=== PATIENT | female | born 1945 | race African-American/Black ===

== ENCOUNTER 2017-02-07 14:18 | Inpatient (IN) | payer MEDICARE, BC ==
[~2017-02-07] VITALS: Ht 167.6 cm; Wt 46.3 kg
[~2017-02-07 14:18] MED LIST: AMLO10TA80 PO; ASPI-1035 PO; FEBU40TA PO; FOLI1TAB87 PO; INSNOV SUBCUT; LIP40 PO; MEMA10TA11 PO; QUIN20TA30 PO; SEVE800T8 PO
[2017-02-07] MEDS ORDERED: MORPHINE SULFATE 4 MG/ML CPJ (NOT FOR IM USE) IV STA (14:57)
[2017-02-07] MEDS ORDERED: ONDANSETRON HCL 4MG/2ML VIAL IV STA (14:57)
[2017-02-07 15:22] LABS: BASOPHILS % 0.5 % (0.0-2.0); EOSINOPHILS % 1.9 % (0.0-5.0); HEMATOCRIT. 32.4 % (36.0-48.0); HEMOGLOBIN. 10.3 g/dL (12.0-16.0); LYMPHOCYTES % 8.6 % (20.0-50.0); MEAN CORPUSCULAR HGB CONC 31.9 g/dL (31.0-37.0); MEAN CORPUSCULAR VOLUME 87.7 fL (81.0-99.0); MEAN PLATELET VOLUME 10.8 fl (7.4-10.4); MONOCYTES % 8.1 % (2.0-8.0); NEUTROPHILS % 80.9 % (40.0-76.0); PLATELET 137 x1000/uL (130-400); RED BLOOD CELL COUNT 3.69 mill/uL (4.2-5.4); RED CELL DISTRIBUTION WIDTH 16.2 % (11.6-14.6); WHITE BLOOD COUNT 8.9 x1000/uL (4.5-11.0)
[2017-02-07 15:22] LABS: CLARITY URINE TURBID (CLEAR); COLOR URINE YELLOW (YELLOW); GLUCOSE URINE NEGATIVE (NEGATIVE); KETONES URINE NEGATIVE (NEGATIVE); LEUKOCYTE ESTERASE URINE TRACE (NEGATIVE); NITRITE URINE NEGATIVE (NEGATIVE); OCCULT BLOOD URINE NEGATIVE (NEGATIVE); PH URINE 6.5 (4.5-8.0); PROTEIN URINE 1+ (NEGATIVE); SPECIFIC GRAVITY URINE 1.015 (1.005-1.030); UROBILINOGEN URINE 0.2 E.U./dL (0.2-1.0)
[2017-02-07 15:29] LABS: PARTIAL THROMBOPLASTIN TIME 26.7 sec (24.0-34.0); PROTHROMBIN TIME 10.9 sec
[2017-02-07 15:39] LABS: ALANINE AMINOTRANSFERASE 23 IU/L (13-61); ANION GAP 21; CALCIUM 7.9 mg/dL (8.5-10.1); CARBON DIOXIDE 25 mEq/L (21-32); CHLORIDE 100 mEq/L (98-107); INDEX HEMOLYSI 1 (1-3); INDEX ICTERIC 1 (1-4); INDEX LIPEMIC 1 (1-3); LIPASE 204 IU/L (73-393); MAGNESIUM 2.3 mg/dL (1.8-2.4); PHOSPHORUS 7.5 mg/dL (2.5-4.9); TROPONIN I 0.03 ng/mL (0.00-0.04); eGFR 5 mL/min (>60)
[2017-02-07 15:41] LABS: UREA NITROGEN BLOOD 81 mg/dL (7-21)
[2017-02-07 15:56] LABS: BACTERIA URINE 4+; RBC URINE NONE SEEN /hpf (0-2); SQUAMOUS EPITHELIAL CELL URINE 3+ /lpf (RARE/1+)
[2017-02-07] MEDS ORDERED: PIPERACILLIN/TAZ 3.375G PREMIX 50 ML IV ONE (16:30)
[2017-02-07 21:40] VITALS: BP 137/68
[2017-02-07] MEDS ORDERED: SODIUM CHLORIDE 0.9% 1,000 ML IV SCH (22:06)
[2017-02-07] MEDS ORDERED: ACETAMINOPHEN 325MG TABLET PO PRN (22:15)
[2017-02-07] MEDS ORDERED: DIPHENHYDRAMINE 50MG/ML VIAL IV PRN (22:15)
[2017-02-07] MEDS ORDERED: HYDROMORPHONE HCL/PF 2MG/ML CPJ IV PRN (22:15)
[2017-02-07] MEDS ORDERED: CLONIDINE 0.1MG TABLET PO PRN (22:15)
[2017-02-08] VITALS: BP 138/73
[2017-02-08 04:00] VITALS: BP 150/74
[2017-02-08] MEDS: ONDANSETRON HCL 4MG/2ML VIAL IV PRN ×3 (04:29→18:34)
[2017-02-08] MEDS: LORAZEPAM 2MG/ML CPJ IV PRN ×2 (04:35→23:43)
[2017-02-08 06:00] LABS: BASOPHILS % 0.5 % (0.0-2.0); EOSINOPHILS % 1.3 % (0.0-5.0); HEMATOCRIT. 31.4 % (36.0-48.0); HEMOGLOBIN. 10.1 g/dL (12.0-16.0); LYMPHOCYTES % 8.9 % (20.0-50.0); MEAN CORPUSCULAR HGB CONC 32.2 g/dL (31.0-37.0); MEAN CORPUSCULAR VOLUME 86.9 fL (81.0-99.0); MEAN PLATELET VOLUME 11.3 fl (7.4-10.4); MONOCYTES % 7.4 % (2.0-8.0); NEUTROPHILS % 81.9 % (40.0-76.0); PLATELET 143 x1000/uL (130-400); RED BLOOD CELL COUNT 3.62 mill/uL (4.2-5.4); RED CELL DISTRIBUTION WIDTH 15.6 % (11.6-14.6); WHITE BLOOD COUNT 9.1 x1000/uL (4.5-11.0)
[2017-02-08] MEDS ORDERED: DEXTROSE 50% WATER 50ML SYRINGE IV PRN (06:30)
[2017-02-08] MEDS: BLOOD SUGAR DIAGNOSTIC STRIP TEST SCH ×4 (07:11→20:58)
[2017-02-08 07:18] LABS: CALCIUM 8.1 mg/dL (8.5-10.1); MAGNESIUM 2.4 mg/dL (1.8-2.4); PHOSPHORUS 7.8 mg/dL (2.5-4.9)
[2017-02-08] MEDS: INSULIN LISPRO 100 UNITS/ML SUBCUT SCH ×4 (07:38→20:57)
[2017-02-08 09:48] VITALS: BP 107/60
[2017-02-08] MEDS: SEVELAMER CARBONATE 800 MG TABLET PO SCH ×2 (13:43→17:55)
[2017-02-08 16:00] VITALS: BP 164/81
[2017-02-08] MEDS ORDERED: CHOL500010 PO (16:47)
[2017-02-08] MEDS ORDERED: CITA10TA9 PO (16:47)
[2017-02-08 20:00] VITALS: BP 130/80
[2017-02-08] MEDS ORDERED: EPOETIN ALFA 4000UNITS/ML VIAL SUBCUT SCH (21:00)
[2017-02-09] VITALS: BP 143/94
[2017-02-09 04:00] VITALS: BP 120/75
[2017-02-09 06:17] LABS: CALCIUM 8.5 mg/dL (8.5-10.1)
[2017-02-09] MEDS: BLOOD SUGAR DIAGNOSTIC STRIP TEST SCH ×3 (06:27→17:14)
[2017-02-09] MEDS: INSULIN LISPRO 100 UNITS/ML SUBCUT SCH ×3 (06:51→17:15)
[2017-02-09 08:00] VITALS: BP 112/69
[2017-02-09] MEDS ORDERED: FOLIC ACID/VITAMIN B COMP W-C TABLET PO SCH (09:00)
[2017-02-09] MEDS: SEVELAMER CARBONATE 800 MG TABLET PO SCH ×3 (09:06→17:14)
[2017-02-09 12:00] VITALS: BP 109/62
[2017-02-09 12:30] VITALS: BP 110/62
[2017-02-09] MEDS: ONDANSETRON HCL 4MG/2ML VIAL IV PRN (16:16)
[2017-02-09 16:30] VITALS: BP 138/78
== END 2017-02-09 19:56 | disposition home or self-care (01) | DRG 865 ==
LOC: ER 16:02 → 6WST 19:34
PROVIDERS: ADMIT Internal Medicine Nephrology; ATTEND Internal Medicine Nephrology
PROC: 5A1D00Z (ICD-10-PCS; principal; 2017-02-08)
DX: B34.9 Viral infection, unspecified (principal); N18.6 End stage renal disease; I12.0 Hypertensive chronic kidney disease with stage 5 chronic kidney disease or end stage renal disease; N17.9 Acute kidney failure, unspecified; N25.81 Secondary hyperparathyroidism of renal origin; K80.20 Calculus of gallbladder without cholecystitis without obstruction; M10.9 Gout, unspecified; F03.90 Unspecified dementia, unspecified severity, without behavioral disturbance, psychotic disturbance, mood disturbance, and anxiety; D25.9 Leiomyoma of uterus, unspecified; D64.9 Anemia, unspecified; E11.22 Type 2 diabetes mellitus with diabetic chronic kidney disease; E78.00 Pure hypercholesterolemia, unspecified; E11.51 Type 2 diabetes mellitus with diabetic peripheral angiopathy without gangrene; E78.5 Hyperlipidemia, unspecified; E83.39 Other disorders of phosphorus metabolism; I70.0 Atherosclerosis of aorta; K57.30 Diverticulosis of large intestine without perforation or abscess without bleeding; M06.4 Inflammatory polyarthropathy; Z89.512 Acquired absence of left leg below knee; Z91.19 Patient's noncompliance with other medical treatment and regimen; Z99.2 Dependence on renal dialysis; Z98.890 Other specified postprocedural states; Z79.4 Long term (current) use of insulin
CPT/HCPCS: 36415; 71010; 74176; 76705; 80048; 80053; 81001; 82962; 83036; 83605; 83690; 83735; 84100; 84484; 85025; 85610; 85730; 87040; 87077; 87086; 93005; 96365; 96375; 99285; J0885; J1170; J1815; J2060; J2270; J2405; J2543; J7030

== ENCOUNTER 2017-03-21 18:30 | Inpatient (IN) | payer MEDICARE, BC ==
[~2017-03-21] VITALS: Ht 160 cm; Wt 49.9 kg
[~2017-03-21 18:30] MED LIST changes: +CHOL500010 PO; +CITA10TA9 PO; +CLOP75TA33 PO; -MEMA10TA11 PO; +MEMA1CAP MT; +NAPR-681 PO
[2017-03-21 20:00] VITALS: BP 133/75
[2017-03-21] MEDS ORDERED: DEXTROSE 50% WATER 50ML SYRINGE IV PRN (22:15)
[2017-03-21] MEDS ORDERED: CLONIDINE 0.1MG TABLET PO PRN (22:30)
[2017-03-21] MEDS ORDERED: GUAIFENESIN 200MG/10ML SUGAR FREE UDC PO PRN (22:30)
[2017-03-21] MEDS ORDERED: DOCUSATE SODIUM 250MG CAPSULE PO PRN (22:30)
[2017-03-21] MEDS ORDERED: VANCOMYCIN 500 MG PREMIX 100 ML IV SCH (23:00)
[2017-03-21] MEDS: AMIODARONE HCL 200 MG TABLET PO SCH (23:08)
[2017-03-21] MEDS: TRAMADOL 50MG TABLET PO PRN (23:10)
[2017-03-21] MEDS: ATORVASTATIN CALCIUM 40MG TABLET PO SCH (23:10)
[2017-03-22] MEDS: DILTIAZEM HCL 60MG TABLET PO SCH ×3 (02:20→13:16)
[2017-03-22] MEDS: BLOOD SUGAR DIAGNOSTIC STRIP TEST SCH ×4 (05:42→20:36)
[2017-03-22 08:00] VITALS: BP 125/84
[2017-03-22] MEDS ORDERED: ASPIRIN 81MG TABLET PO SCH (09:00)
[2017-03-22] MEDS ORDERED: CLOPIDOGREL 75MG TABLET PO SCH (09:00)
[2017-03-22] MEDS: CHOLECALCIFEROL (D3) 1000 UNIT TABLET PO SCH (09:05)
[2017-03-22] MEDS: FOLIC ACID/VITAMIN B COMP W-C TABLET PO SCH (09:05)
[2017-03-22] MEDS: SEVELAMER CARBONATE 800 MG TABLET PO SCH ×3 (09:06→17:35)
[2017-03-22] MEDS: CITALOPRAM HYDROBROMIDE 10MG TABLET PO SCH (09:06)
[2017-03-22] MEDS: AMIODARONE HCL 200 MG TABLET PO SCH ×2 (09:06→17:35)
[2017-03-22] MEDS: IRON SUCROSE COMPLEX 100 MG/5 ML ML IV SCH (09:24)
[2017-03-22 13:15] VITALS: BP 136/61
[2017-03-22] MEDS: INSULIN LISPRO 100 UNITS/ML SUBCUT SCH ×4 (13:16→20:37)
[2017-03-22 16:00] VITALS: BP 149/82
[2017-03-22] MEDS: TRAMADOL 50MG TABLET PO PRN (17:36)
[2017-03-22 20:00] VITALS: BP 106/61
[2017-03-22] MEDS: FAMOTIDINE 20MG TABLET PO SCH (20:40)
[2017-03-22] MEDS: ATORVASTATIN CALCIUM 40MG TABLET PO SCH (20:40)
[2017-03-23] MEDS: BLOOD SUGAR DIAGNOSTIC STRIP TEST SCH ×4 (06:09→21:19)
[2017-03-23] MEDS: DILTIAZEM HCL 60MG TABLET PO SCH ×4 (06:10→21:19)
[2017-03-23] MEDS: ONDANSETRON HCL 4MG/2ML VIAL IV PRN ×3 (06:17→12:54)
[2017-03-23 06:45] LABS: HEMATOCRIT. 33.4 % (36.0-48.0); MEAN CORPUSCULAR HEMOGLOBIN 27.8 pg (28.0-32.0); MEAN CORPUSCULAR HGB CONC 33.1 g/dL (31.0-37.0); MEAN CORPUSCULAR VOLUME 83.9 fL (81.0-99.0); MEAN PLATELET VOLUME 9.4 fl (7.4-10.4); PLATELET 188 x1000/uL (130-400); RED BLOOD CELL COUNT 3.98 mill/uL (4.2-5.4); RED CELL DISTRIBUTION WIDTH 15.9 % (11.6-14.6); WHITE BLOOD COUNT 18.1 x1000/uL (4.5-11.0)
[2017-03-23 06:59] LABS: DIFFERENTIAL COMMENT 1
[2017-03-23 07:12] LABS: CALCIUM 8.3 mg/dL (8.5-10.1); PHOSPHORUS 4.5 mg/dL (2.5-4.9)
[2017-03-23] MEDS: INSULIN LISPRO 100 UNITS/ML SUBCUT SCH ×4 (07:27→21:00)
[2017-03-23 08:00] VITALS: BP 111/62
[2017-03-23] MEDS: FOLIC ACID/VITAMIN B COMP W-C TABLET PO SCH (08:06)
[2017-03-23] MEDS: IRON SUCROSE COMPLEX 100 MG/5 ML ML IV SCH (08:06)
[2017-03-23] MEDS: CHOLECALCIFEROL (D3) 1000 UNIT TABLET PO SCH (08:06)
[2017-03-23] MEDS: SEVELAMER CARBONATE 800 MG TABLET PO SCH ×3 (08:06→16:41)
[2017-03-23] MEDS: CITALOPRAM HYDROBROMIDE 10MG TABLET PO SCH (08:07)
[2017-03-23] MEDS: AMIODARONE HCL 200 MG TABLET PO SCH ×2 (08:07→16:41)
[2017-03-23] MEDS: TRAMADOL 50MG TABLET PO PRN ×2 (10:58→17:42)
[2017-03-23 13:32] LABS: BG BASE EXCESS -0.8 mmol/L (-2.0-2.0); BG CARBOXYHEMOGLOBIN 0.9 % (0.5-1.5); BG DEOXYHEMOGLOBIN 7.3 % (0.0-5.0); BG FRACTION INSPIRED OXYGEN 21; BG HCO3 ACT 22.6 mmol/L (22.0-26.0); BG METHEMOGLOBIN 0.1 % (0.0-1.5); BG OXYGEN SATURATION 92.6 % (92.0-98.5); BG OXYHEMOGLOBIN 91.7 % (94.0-97.0); BG PCO2 33.5 mmHg (35.0-45.0); BG PH 7.447 (7.350-7.450); BG SAMPLE SITE RIGHT RADIAL; BG TOTAL HEMOGLOBIN 12.1 g/dL (12.0-18.0); BG VENT MODE ROOM AIR
[2017-03-23 14:44] LABS: ANISOCYTOSIS 1+; PLATELET ESTIMATE NORMAL
[2017-03-23 20:00] VITALS: BP 147/82
[2017-03-23] MEDS ORDERED: IPRATROPIUM BROMIDE (0.02%) 0.5MG/2.5ML NEB HHN PRN (21:00)
[2017-03-23] MEDS: FAMOTIDINE 20MG TABLET PO SCH (21:18)
[2017-03-23] MEDS: ATORVASTATIN CALCIUM 40MG TABLET PO SCH (21:18)
[2017-03-23] MEDS ORDERED: DOCUSATE SODIUM 100MG CAPSULE PO PRN (21:45)
[2017-03-24 06:45] LABS: HEMATOCRIT. 34.3 % (36.0-48.0); HEMOGLOBIN. 11.2 g/dL (12.0-16.0); MEAN CORPUSCULAR HEMOGLOBIN 27.6 pg (28.0-32.0); MEAN CORPUSCULAR HGB CONC 32.7 g/dL (31.0-37.0); MEAN CORPUSCULAR VOLUME 84.4 fL (81.0-99.0); MEAN PLATELET VOLUME 9.5 fl (7.4-10.4); PLATELET 206 x1000/uL (130-400); RED BLOOD CELL COUNT 4.06 mill/uL (4.2-5.4); WHITE BLOOD COUNT 15.5 x1000/uL (4.5-11.0)
[2017-03-24] MEDS: DILTIAZEM HCL 60MG TABLET PO SCH ×3 (06:46→22:26)
[2017-03-24] MEDS: INSULIN LISPRO 100 UNITS/ML SUBCUT SCH ×4 (06:47→21:00)
[2017-03-24] MEDS: BLOOD SUGAR DIAGNOSTIC STRIP TEST SCH ×4 (06:47→21:00)
[2017-03-24 07:20] LABS: CALCIUM 8.5 mg/dL (8.5-10.1)
[2017-03-24 08:00] VITALS: BP 138/68
[2017-03-24] MEDS: CHOLECALCIFEROL (D3) 1000 UNIT TABLET PO SCH (08:21)
[2017-03-24] MEDS: SEVELAMER CARBONATE 800 MG TABLET PO SCH ×3 (08:21→22:25)
[2017-03-24] MEDS: FOLIC ACID/VITAMIN B COMP W-C TABLET PO SCH (08:21)
[2017-03-24] MEDS: TRAMADOL 50MG TABLET PO PRN (08:22)
[2017-03-24] MEDS: CITALOPRAM HYDROBROMIDE 10MG TABLET PO SCH (08:22)
[2017-03-24] MEDS: AMIODARONE HCL 200 MG TABLET PO SCH ×2 (08:23→22:25)
[2017-03-24] MEDS: ONDANSETRON HCL 4MG/2ML VIAL IV PRN ×3 (08:23→21:20)
[2017-03-24 08:24] LABS: DIFFERENTIAL COMMENT 1
[2017-03-24 16:51] LABS: PLATELET ESTIMATE NORMAL
[2017-03-24] MEDS ORDERED: VANCOMYCIN 500 MG PREMIX 100 ML IV SCH (17:00)
[2017-03-24 20:00] VITALS: BP 133/46
[2017-03-24] MEDS: FAMOTIDINE 20MG TABLET PO SCH (22:25)
[2017-03-24] MEDS: ATORVASTATIN CALCIUM 40MG TABLET PO SCH (22:25)
[2017-03-25] MEDS: ACETAMINOPHEN 325MG TABLET PO PRN (00:37)
[2017-03-25] MEDS: DILTIAZEM HCL 60MG TABLET PO SCH ×3 (06:00→21:32)
[2017-03-25] MEDS: BLOOD SUGAR DIAGNOSTIC STRIP TEST SCH ×4 (06:00→20:48)
[2017-03-25] MEDS: INSULIN LISPRO 100 UNITS/ML SUBCUT SCH ×4 (06:00→21:00)
[2017-03-25 07:51] VITALS: BP 135/65
[2017-03-25] MEDS: FOLIC ACID/VITAMIN B COMP W-C TABLET PO SCH (07:52)
[2017-03-25] MEDS: AMIODARONE HCL 200 MG TABLET PO SCH ×2 (07:52→16:54)
[2017-03-25] MEDS: CITALOPRAM HYDROBROMIDE 10MG TABLET PO SCH (07:52)
[2017-03-25] MEDS: CHOLECALCIFEROL (D3) 1000 UNIT TABLET PO SCH (07:52)
[2017-03-25] MEDS: SEVELAMER CARBONATE 800 MG TABLET PO SCH ×3 (07:52→16:54)
[2017-03-25] MEDS: TRAMADOL 50MG TABLET PO PRN ×2 (07:53→13:53)
[2017-03-25] MEDS: ONDANSETRON HCL 4MG/2ML VIAL IV PRN (07:53)
[2017-03-25 08:00] VITALS: BP 137/65
[2017-03-25 20:00] VITALS: BP 142/72
[2017-03-25] MEDS: ATORVASTATIN CALCIUM 40MG TABLET PO SCH (21:32)
[2017-03-25] MEDS: FAMOTIDINE 20MG TABLET PO SCH (21:32)
[2017-03-26 05:00] VITALS: BP 128/69
[2017-03-26] MEDS: TRAMADOL 50MG TABLET PO PRN ×3 (05:00→18:04)
[2017-03-26] MEDS: BLOOD SUGAR DIAGNOSTIC STRIP TEST SCH ×4 (06:19→21:38)
[2017-03-26 06:45] LABS: HEMATOCRIT. 35.3 % (36.0-48.0); HEMOGLOBIN. 11.4 g/dL (12.0-16.0); MEAN CORPUSCULAR HEMOGLOBIN 27.2 pg (28.0-32.0); MEAN CORPUSCULAR HGB CONC 32.2 g/dL (31.0-37.0); MEAN CORPUSCULAR VOLUME 84.3 fL (81.0-99.0); MEAN PLATELET VOLUME 9.3 fl (7.4-10.4); PLATELET 255 x1000/uL (130-400); RED BLOOD CELL COUNT 4.19 mill/uL (4.2-5.4); RED CELL DISTRIBUTION WIDTH 15.7 % (11.6-14.6); WHITE BLOOD COUNT 13.7 x1000/uL (4.5-11.0)
[2017-03-26] MEDS: DILTIAZEM HCL 60MG TABLET PO SCH ×3 (06:45→21:44)
[2017-03-26 06:48] LABS: DIFFERENTIAL COMMENT 1
[2017-03-26] MEDS: INSULIN LISPRO 100 UNITS/ML SUBCUT SCH ×4 (06:48→21:00)
[2017-03-26 07:05] LABS: CALCIUM 8.7 mg/dL (8.5-10.1)
[2017-03-26 08:00] VITALS: BP 147/66
[2017-03-26] MEDS: AMIODARONE HCL 200 MG TABLET PO SCH ×2 (08:00→16:02)
[2017-03-26] MEDS: ONDANSETRON HCL 4MG/2ML VIAL IV PRN (08:00)
[2017-03-26] MEDS: FOLIC ACID/VITAMIN B COMP W-C TABLET PO SCH (08:00)
[2017-03-26] MEDS: CITALOPRAM HYDROBROMIDE 10MG TABLET PO SCH (08:00)
[2017-03-26] MEDS: ACETAMINOPHEN 325MG TABLET PO PRN ×2 (08:00→16:03)
[2017-03-26] MEDS: CHOLECALCIFEROL (D3) 1000 UNIT TABLET PO SCH (08:00)
[2017-03-26] MEDS: SEVELAMER CARBONATE 800 MG TABLET PO SCH ×3 (08:04→16:02)
[2017-03-26 09:11] LABS: PLATELET ESTIMATE NORMAL
[2017-03-26 20:19] VITALS: BP 160/65
[2017-03-26] MEDS: FAMOTIDINE 20MG TABLET PO SCH (20:40)
[2017-03-26] MEDS: ATORVASTATIN CALCIUM 40MG TABLET PO SCH (20:40)
[2017-03-26 23:00] VITALS: BP 132/71
[2017-03-27] MEDS: DILTIAZEM HCL 60MG TABLET PO SCH ×3 (05:44→22:04)
[2017-03-27 06:21] LABS: HEMATOCRIT. 33.2 % (36.0-48.0); MEAN CORPUSCULAR HGB CONC 33.2 g/dL (31.0-37.0); MEAN CORPUSCULAR VOLUME 84.2 fL (81.0-99.0); MEAN PLATELET VOLUME 9.4 fl (7.4-10.4); PLATELET 245 x1000/uL (130-400); RED BLOOD CELL COUNT 3.95 mill/uL (4.2-5.4); RED CELL DISTRIBUTION WIDTH 15.5 % (11.6-14.6); WHITE BLOOD COUNT 10.1 x1000/uL (4.5-11.0)
[2017-03-27] MEDS: BLOOD SUGAR DIAGNOSTIC STRIP TEST SCH ×4 (06:26→21:00)
[2017-03-27 06:47] LABS: DIFFERENTIAL COMMENT 1
[2017-03-27 07:08] LABS: CALCIUM 8.4 mg/dL (8.5-10.1)
[2017-03-27] MEDS: INSULIN LISPRO 100 UNITS/ML SUBCUT SCH ×4 (07:15→21:00)
[2017-03-27] MEDS: SEVELAMER CARBONATE 800 MG TABLET PO SCH ×3 (08:34→17:01)
[2017-03-27] MEDS: FOLIC ACID/VITAMIN B COMP W-C TABLET PO SCH (08:34)
[2017-03-27] MEDS: CITALOPRAM HYDROBROMIDE 10MG TABLET PO SCH (08:35)
[2017-03-27] MEDS: AMIODARONE HCL 200 MG TABLET PO SCH ×2 (08:35→17:01)
[2017-03-27] MEDS: CHOLECALCIFEROL (D3) 1000 UNIT TABLET PO SCH (08:35)
[2017-03-27] MEDS: TRAMADOL 50MG TABLET PO PRN (08:36)
[2017-03-27 11:58] LABS: PLATELET ESTIMATE NORMAL
[2017-03-27 20:00] VITALS: BP 128/70
[2017-03-27] MEDS: ATORVASTATIN CALCIUM 40MG TABLET PO SCH (22:03)
[2017-03-27] MEDS: FAMOTIDINE 20MG TABLET PO SCH (22:03)
[2017-03-28] MEDS: DILTIAZEM HCL 60MG TABLET PO SCH ×3 (06:00→22:13)
[2017-03-28] MEDS: BLOOD SUGAR DIAGNOSTIC STRIP TEST SCH ×4 (06:30→21:00)
[2017-03-28] MEDS: INSULIN LISPRO 100 UNITS/ML SUBCUT SCH ×4 (07:43→21:00)
[2017-03-28 08:00] VITALS: BP 132/66
[2017-03-28] MEDS: CHOLECALCIFEROL (D3) 1000 UNIT TABLET PO SCH (08:24)
[2017-03-28] MEDS: CITALOPRAM HYDROBROMIDE 10MG TABLET PO SCH (08:24)
[2017-03-28] MEDS: FOLIC ACID/VITAMIN B COMP W-C TABLET PO SCH (08:24)
[2017-03-28] MEDS: SEVELAMER CARBONATE 800 MG TABLET PO SCH ×3 (08:24→16:54)
[2017-03-28] MEDS: AMIODARONE HCL 200 MG TABLET PO SCH ×2 (08:25→16:55)
[2017-03-28] MEDS: TRAMADOL 50MG TABLET PO PRN (09:34)
[2017-03-28 14:49] VITALS: BP 187/95
[2017-03-28 16:10] VITALS: BP 151/61
[2017-03-28 20:00] VITALS: BP 147/69
[2017-03-28] MEDS: FAMOTIDINE 20MG TABLET PO SCH (22:12)
[2017-03-28] MEDS: ATORVASTATIN CALCIUM 40MG TABLET PO SCH (22:16)
[2017-03-29] MEDS: TRAMADOL 50MG TABLET PO PRN ×2 (02:03→08:31)
[2017-03-29] MEDS: BLOOD SUGAR DIAGNOSTIC STRIP TEST SCH ×4 (05:46→21:00)
[2017-03-29] MEDS: DILTIAZEM HCL 60MG TABLET PO SCH ×2 (05:49→13:42)
[2017-03-29] MEDS: INSULIN LISPRO 100 UNITS/ML SUBCUT SCH ×4 (06:16→21:00)
[2017-03-29 07:30] VITALS: BP 147/63
[2017-03-29 08:00] VITALS: BP 147/63
[2017-03-29] MEDS: CHOLECALCIFEROL (D3) 1000 UNIT TABLET PO SCH (08:29)
[2017-03-29] MEDS: CITALOPRAM HYDROBROMIDE 10MG TABLET PO SCH (08:29)
[2017-03-29] MEDS: FOLIC ACID/VITAMIN B COMP W-C TABLET PO SCH (08:29)
[2017-03-29] MEDS: SEVELAMER CARBONATE 800 MG TABLET PO SCH ×3 (08:29→17:03)
[2017-03-29] MEDS: AMIODARONE HCL 200 MG TABLET PO SCH ×2 (08:29→17:03)
[2017-03-29] MEDS: ONDANSETRON HCL 4MG/2ML VIAL IV PRN (08:39)
[2017-03-29 13:40] VITALS: BP 156/67
[2017-03-29] MEDS: HYDROCODONE/ACETAMINOPHEN 5/325MG TABLET PO PRN (13:46)
[2017-03-29 20:00] VITALS: BP 147/64
[2017-03-30] MEDS: ACETAMINOPHEN 325MG TABLET PO PRN (00:22)
[2017-03-30] MEDS: FAMOTIDINE 20MG TABLET PO SCH ×2 (00:22→22:31)
[2017-03-30] MEDS: DILTIAZEM HCL 60MG TABLET PO SCH ×4 (00:22→22:31)
[2017-03-30] MEDS: ATORVASTATIN CALCIUM 40MG TABLET PO SCH ×2 (00:22→22:31)
[2017-03-30] MEDS: BLOOD SUGAR DIAGNOSTIC STRIP TEST SCH ×4 (06:34→21:00)
[2017-03-30] MEDS: INSULIN LISPRO 100 UNITS/ML SUBCUT SCH ×4 (07:53→21:00)
[2017-03-30 08:00] VITALS: BP 142/62
[2017-03-30] MEDS: ONDANSETRON HCL 4MG/2ML VIAL IV PRN (08:40)
[2017-03-30] MEDS: AMIODARONE HCL 200 MG TABLET PO SCH ×2 (08:41→17:58)
[2017-03-30] MEDS: TRAMADOL 50MG TABLET PO PRN ×2 (08:41→14:51)
[2017-03-30] MEDS: FOLIC ACID/VITAMIN B COMP W-C TABLET PO SCH (08:41)
[2017-03-30] MEDS: SEVELAMER CARBONATE 800 MG TABLET PO SCH ×3 (08:41→17:58)
[2017-03-30] MEDS: CITALOPRAM HYDROBROMIDE 10MG TABLET PO SCH (08:41)
[2017-03-30] MEDS: CHOLECALCIFEROL (D3) 1000 UNIT TABLET PO SCH (08:41)
[2017-03-30] MEDS: BISACODYL 5MG TABLET PO PRN (14:45)
[2017-03-30] MEDS ORDERED: LACTULOSE 20G/30ML UDC PO PRN (18:15)
[2017-03-30 20:00] VITALS: BP 148/71
[2017-03-31 06:35] LABS: HEMATOCRIT. 33.9 % (36.0-48.0); MEAN CORPUSCULAR HEMOGLOBIN 27.2 pg (28.0-32.0); MEAN CORPUSCULAR HGB CONC 32.6 g/dL (31.0-37.0); MEAN CORPUSCULAR VOLUME 83.6 fL (81.0-99.0); PLATELET 230 x1000/uL (130-400); RED BLOOD CELL COUNT 4.05 mill/uL (4.2-5.4); RED CELL DISTRIBUTION WIDTH 15.1 % (11.6-14.6); WHITE BLOOD COUNT 14.4 x1000/uL (4.5-11.0)
[2017-03-31] MEDS: BLOOD SUGAR DIAGNOSTIC STRIP TEST SCH ×4 (06:44→21:00)
[2017-03-31] MEDS: DILTIAZEM HCL 60MG TABLET PO SCH ×3 (06:51→22:05)
[2017-03-31] MEDS: ONDANSETRON HCL 4MG/2ML VIAL IV PRN (06:56)
[2017-03-31 07:13] LABS: CALCIUM 8.2 mg/dL (8.5-10.1)
[2017-03-31 07:43] LABS: DIFFERENTIAL COMMENT 1
[2017-03-31 08:00] VITALS: BP 143/62
[2017-03-31] MEDS: AMIODARONE HCL 200 MG TABLET PO SCH ×2 (08:02→16:17)
[2017-03-31] MEDS: CHOLECALCIFEROL (D3) 1000 UNIT TABLET PO SCH (08:02)
[2017-03-31] MEDS: FOLIC ACID/VITAMIN B COMP W-C TABLET PO SCH (08:02)
[2017-03-31] MEDS: SEVELAMER CARBONATE 800 MG TABLET PO SCH ×3 (08:02→16:17)
[2017-03-31] MEDS: CITALOPRAM HYDROBROMIDE 10MG TABLET PO SCH (08:03)
[2017-03-31] MEDS: TRAMADOL 50MG TABLET PO PRN ×2 (08:06→14:39)
[2017-03-31] MEDS: INSULIN LISPRO 100 UNITS/ML SUBCUT SCH ×4 (08:07→21:00)
[2017-03-31 10:43] LABS: PLATELET ESTIMATE NORMAL
[2017-03-31] MEDS ORDERED: LEVOFLOXACIN 250MG PREMIX 50 ML IV SCH (18:00)
[2017-03-31 20:34] VITALS: BP 165/61
[2017-03-31] MEDS: ATORVASTATIN CALCIUM 40MG TABLET PO SCH (22:04)
[2017-03-31] MEDS: FAMOTIDINE 20MG TABLET PO SCH (22:05)
[2017-04-01] MEDS: ACETAMINOPHEN 325MG TABLET PO PRN (00:22)
[2017-04-01] MEDS: INSULIN LISPRO 100 UNITS/ML SUBCUT SCH ×4 (06:04→21:00)
[2017-04-01] MEDS: BLOOD SUGAR DIAGNOSTIC STRIP TEST SCH ×4 (06:04→21:14)
[2017-04-01] MEDS: DILTIAZEM HCL 60MG TABLET PO SCH ×3 (06:04→21:14)
[2017-04-01] MEDS: ONDANSETRON HCL 4MG/2ML VIAL IV PRN (07:56)
[2017-04-01 08:00] VITALS: BP 129/68
[2017-04-01] MEDS: SEVELAMER CARBONATE 800 MG TABLET PO SCH ×3 (08:01→16:26)
[2017-04-01] MEDS: CITALOPRAM HYDROBROMIDE 10MG TABLET PO SCH (08:01)
[2017-04-01] MEDS: TRAMADOL 50MG TABLET PO PRN (08:01)
[2017-04-01] MEDS: FOLIC ACID/VITAMIN B COMP W-C TABLET PO SCH (08:01)
[2017-04-01] MEDS: AMIODARONE HCL 200 MG TABLET PO SCH ×2 (08:01→16:26)
[2017-04-01] MEDS: CHOLECALCIFEROL (D3) 1000 UNIT TABLET PO SCH (08:01)
[2017-04-01] MEDS: HYDROCODONE/ACETAMINOPHEN 5/325MG TABLET PO PRN ×2 (11:21→18:21)
[2017-04-01 20:00] VITALS: BP 126/65
[2017-04-01] MEDS: FAMOTIDINE 20MG TABLET PO SCH (21:14)
[2017-04-01] MEDS: ATORVASTATIN CALCIUM 40MG TABLET PO SCH (21:14)
[2017-04-02] MEDS: BLOOD SUGAR DIAGNOSTIC STRIP TEST SCH ×4 (06:24→21:20)
[2017-04-02] MEDS: DILTIAZEM HCL 60MG TABLET PO SCH ×3 (06:24→21:17)
[2017-04-02] MEDS: INSULIN LISPRO 100 UNITS/ML SUBCUT SCH ×4 (06:25→21:00)
[2017-04-02 08:00] VITALS: BP 148/66
[2017-04-02] MEDS: SEVELAMER CARBONATE 800 MG TABLET PO SCH ×3 (08:18→16:24)
[2017-04-02] MEDS: CITALOPRAM HYDROBROMIDE 10MG TABLET PO SCH (08:18)
[2017-04-02] MEDS: HYDROCODONE/ACETAMINOPHEN 5/325MG TABLET PO PRN ×2 (08:19→21:19)
[2017-04-02] MEDS: AMIODARONE HCL 200 MG TABLET PO SCH ×2 (08:19→16:24)
[2017-04-02] MEDS: FOLIC ACID/VITAMIN B COMP W-C TABLET PO SCH (08:20)
[2017-04-02] MEDS: CHOLECALCIFEROL (D3) 1000 UNIT TABLET PO SCH (08:20)
[2017-04-02] MEDS: ONDANSETRON HCL 4MG/2ML VIAL IV PRN ×2 (09:46→15:51)
[2017-04-02] MEDS ORDERED: LEVOFLOXACIN 500MG PREMIX 100 ML IV SCH (15:00)
[2017-04-02 20:00] VITALS: BP 127/85
[2017-04-02] MEDS: FAMOTIDINE 20MG TABLET PO SCH (21:19)
[2017-04-02] MEDS: ATORVASTATIN CALCIUM 40MG TABLET PO SCH (21:19)
[2017-04-03] MEDS: TRAMADOL 50MG TABLET PO PRN (00:26)
[2017-04-03] MEDS: ONDANSETRON HCL 4MG/2ML VIAL IV PRN (05:59)
[2017-04-03] MEDS: DILTIAZEM HCL 60MG TABLET PO SCH ×3 (06:36→21:46)
[2017-04-03] MEDS: BLOOD SUGAR DIAGNOSTIC STRIP TEST SCH ×4 (06:38→21:47)
[2017-04-03] MEDS: INSULIN LISPRO 100 UNITS/ML SUBCUT SCH ×4 (06:39→21:00)
[2017-04-03 08:00] VITALS: BP 142/60
[2017-04-03 09:11] LABS: HEMATOCRIT. 35.1 % (36.0-48.0); HEMOGLOBIN. 11.4 g/dL (12.0-16.0); MEAN CORPUSCULAR HEMOGLOBIN 27.2 pg (28.0-32.0); MEAN CORPUSCULAR HGB CONC 32.5 g/dL (31.0-37.0); MEAN CORPUSCULAR VOLUME 83.5 fL (81.0-99.0); MEAN PLATELET VOLUME 9.3 fl (7.4-10.4); PLATELET 211 x1000/uL (130-400); RED CELL DISTRIBUTION WIDTH 15.6 % (11.6-14.6); WHITE BLOOD COUNT 14.6 x1000/uL (4.5-11.0)
[2017-04-03 09:13] LABS: DIFFERENTIAL COMMENT 1
[2017-04-03] MEDS: AMIODARONE HCL 200 MG TABLET PO SCH ×2 (09:23→16:53)
[2017-04-03] MEDS: CHOLECALCIFEROL (D3) 1000 UNIT TABLET PO SCH (09:23)
[2017-04-03] MEDS: CITALOPRAM HYDROBROMIDE 10MG TABLET PO SCH (09:23)
[2017-04-03] MEDS: FOLIC ACID/VITAMIN B COMP W-C TABLET PO SCH (09:23)
[2017-04-03] MEDS: SEVELAMER CARBONATE 800 MG TABLET PO SCH ×3 (09:23→16:53)
[2017-04-03 09:50] LABS: CALCIUM 8.8 mg/dL (8.5-10.1)
[2017-04-03] MEDS: BISACODYL 5MG TABLET PO PRN (12:27)
[2017-04-03 13:16] LABS: PLATELET ESTIMATE NORMAL
[2017-04-03 19:00] VITALS: BP 156/69
[2017-04-03] MEDS ORDERED: LEVOFLOXACIN 250MG PREMIX 50 ML IV SCH (21:00)
[2017-04-03] MEDS: ATORVASTATIN CALCIUM 40MG TABLET PO SCH (21:46)
[2017-04-03] MEDS: FAMOTIDINE 20MG TABLET PO SCH (21:47)
[2017-04-04] MEDS: TRAMADOL 50MG TABLET PO PRN ×2 (00:15→08:27)
[2017-04-04 02:00] VITALS: BP 130/69
[2017-04-04] MEDS: DILTIAZEM HCL 60MG TABLET PO SCH ×2 (05:43→13:06)
[2017-04-04] MEDS: BLOOD SUGAR DIAGNOSTIC STRIP TEST SCH ×2 (05:43→11:15)
[2017-04-04] MEDS: INSULIN LISPRO 100 UNITS/ML SUBCUT SCH ×2 (06:13→12:11)
[2017-04-04 08:00] VITALS: BP 138/64
[2017-04-04] MEDS: CHOLECALCIFEROL (D3) 1000 UNIT TABLET PO SCH (09:18)
[2017-04-04] MEDS: FOLIC ACID/VITAMIN B COMP W-C TABLET PO SCH (09:18)
[2017-04-04] MEDS: AMIODARONE HCL 200 MG TABLET PO SCH (09:18)
[2017-04-04] MEDS: SEVELAMER CARBONATE 800 MG TABLET PO SCH ×2 (09:19→12:13)
[2017-04-04] MEDS: CITALOPRAM HYDROBROMIDE 10MG TABLET PO SCH (09:19)
[2017-04-04] MEDS ORDERED: LEVOFLOXACIN 250MG PREMIX 50 ML IV SCH (11:00)
[2017-04-04] MEDS ORDERED: HYDROCODONE/ACETAMINOPHEN 5/325MG TABLET PO PRN (11:30)
[2017-04-04 13:46] VITALS: BP 84/82
== END 2017-04-04 16:10 | DRG 299 ==
PROVIDERS: ADMIT Psychiatry & Neurology Neurology; ATTEND Hospitalist
PROC: 5A1D60Z (ICD-10-PCS; principal; 2017-03-24)
DX: E11.52 Type 2 diabetes mellitus with diabetic peripheral angiopathy with gangrene (principal); N18.6 End stage renal disease; N25.81 Secondary hyperparathyroidism of renal origin; I47.1 Supraventricular tachycardia; D62 Acute posthemorrhagic anemia; J90 Pleural effusion, not elsewhere classified; I13.11 Hypertensive heart and chronic kidney disease without heart failure, with stage 5 chronic kidney disease, or end stage renal disease; T82.42XA Displacement of vascular dialysis catheter, initial encounter; M10.9 Gout, unspecified; E11.22 Type 2 diabetes mellitus with diabetic chronic kidney disease; I73.9 Peripheral vascular disease, unspecified; G54.6 Phantom limb syndrome with pain; E11.42 Type 2 diabetes mellitus with diabetic polyneuropathy; E11.21 Type 2 diabetes mellitus with diabetic nephropathy; K80.20 Calculus of gallbladder without cholecystitis without obstruction; F02.80 Dementia in other diseases classified elsewhere, unspecified severity, without behavioral disturbance, psychotic disturbance, mood disturbance, and anxiety; G30.9 Alzheimer's disease, unspecified; Y84.8 Other medical procedures as the cause of abnormal reaction of the patient, or of later complication, without mention of misadventure at the time of the procedure; D72.829 Elevated white blood cell count, unspecified; Z83.3 Family history of diabetes mellitus; Z82.49 Family history of ischemic heart disease and other diseases of the circulatory system; Z89.512 Acquired absence of left leg below knee; Z99.2 Dependence on renal dialysis; Z89.511 Acquired absence of right leg below knee
CPT/HCPCS: 36415; 36600; 71010; 71250; 80048; 80202; 82375; 82805; 82962; 84100; 85025; 85379; 87040; 93005; 93970; 97110; 97112; 97163; 97166; 97530; 97535; 97542; A6261; J1815; J1956; J2405; J3370; J7030; J7050; A5200

== ENCOUNTER 2018-02-23 15:34 | Emergency (ER) | payer MEDICARE, MEDICAID ==
[~2018-02-23] VITALS: Ht 165.1 cm; Wt 73.0 kg
[~2018-02-23 15:34] MED LIST changes: +AMIODARONE HCL PO; -AMLO10TA80 PO; +ASCO500C6 PO; -ASPI-1035 PO; +ASPI-1159 PO; +ATOR40TA70 PO; +CHOL100044 PO; -CHOL500010 PO; +DILT180C69 PO; +DOCU-150 PO; +FAMO20TA8 PO; -FEBU40TA PO; -FOLI1TAB87 PO; +HYDR-523 PO; -INSNOV SUBCUT; +IPRA0.2S51 IH; +IPRA0.2S51 NEB; +LACT10SO6 PO; -LIP40 PO; -MEMA1CAP MT; +MEMA1CAP PO; -NAPR-681 PO; +ONDA4TAB5 PO; +PROSTAT SF PO; -QUIN20TA30 PO; +RENA-VITE PO; +ROBAFEN PO; +TRAM50TA3 PO
[2018-02-23 16:47] LABS: CHLORIDE 98 mEq/L (98-107)
[2018-02-23 16:48] LABS: EOSINOPHILS % 2.1 % (0.0-5.0); HEMATOCRIT. 38.6 % (36.0-48.0); HEMOGLOBIN. 12.4 g/dL (12.0-16.0); INR 1.1; LYMPHOCYTES % 12.6 % (20.0-50.0); MEAN CORPUSCULAR VOLUME 84.3 fL (81.0-99.0); MEAN PLATELET VOLUME 10.2 fl (7.4-10.4); MONOCYTES % 11.3 % (2.0-8.0); PLATELET 140 x1000/uL (130-400); PROTHROMBIN TIME 11.3 sec (9.4-11.6); RED BLOOD CELL COUNT 4.58 mill/uL (4.2-5.4); RED CELL DISTRIBUTION WIDTH 16.9 % (11.6-14.6)
[2018-02-23 19:27] VITALS: BP 149/62
== END 2018-02-23 20:45 | disposition home or self-care (01) ==
LOC: ER 15:48
DX: T82.838A Hemorrhage due to vascular prosthetic devices, implants and grafts, initial encounter (principal); I12.0 Hypertensive chronic kidney disease with stage 5 chronic kidney disease or end stage renal disease; E11.22 Type 2 diabetes mellitus with diabetic chronic kidney disease; N18.6 End stage renal disease; I48.91 Unspecified atrial fibrillation; Z99.2 Dependence on renal dialysis; Z88.8 Allergy status to other drugs, medicaments and biological substances; Z79.82 Long term (current) use of aspirin; Z79.01 Long term (current) use of anticoagulants; Y84.1 Kidney dialysis as the cause of abnormal reaction of the patient, or of later complication, without mention of misadventure at the time of the procedure
CPT/HCPCS: 36415; 80053; 85025; 85610; 86850; 86900; 99284

== ENCOUNTER 2019-02-12 00:43 | Inpatient (IN) | payer MEDICARE, MEDICAID ==
[~2019-02-12] VITALS: Ht 160 cm; Wt 48.3 kg
[~2019-02-12 00:43] MED LIST changes: +DILT180C66 PO; -DILT180C69 PO
[2019-02-12 01:58] LABS: BG BASE EXCESS 5.8 mmol/L (-2.0-2.0); BG CARBOXYHEMOGLOBIN 0.3 % (0.5-1.5); BG FRACTION INSPIRED OXYGEN 32; BG HCO3 ACT 30.1 mmol/L (22.0-26.0); BG METHEMOGLOBIN 0.2 % (0.0-1.5); BG OXYHEMOGLOBIN 93.5 % (94.0-97.0); BG PCO2 42.6 mmHg (35.0-45.0); BG PH 7.467 (7.350-7.450); BG PO2 70.1 mmHg (75.0-100.0); BG SAMPLE SITE RIGHT BRACHIAL; BG TOTAL HEMOGLOBIN 11.1 g/dL (12.0-18.0); BG VENT MODE NASAL CANNULA
[2019-02-12 02:11] LABS: HEMATOCRIT. 33.2 % (36.0-48.0); HEMOGLOBIN. 10.6 g/dL (12.0-16.0); MEAN CORPUSCULAR VOLUME 84.2 fL (81.0-99.0); MEAN PLATELET VOLUME 10.8 fl (7.4-10.4); PLATELET 110 x1000/uL (130-400); RED BLOOD CELL COUNT 3.94 mill/uL (4.2-5.4); RED CELL DISTRIBUTION WIDTH 18.5 % (11.6-14.6)
[2019-02-12 02:17] LABS: CHLORIDE 102 mEq/L (98-107)
[2019-02-12 02:38] LABS: PLATELET ESTIMATE SLIGHTLY DECREASED
[2019-02-12] MEDS ORDERED: DIPHENHYDRAMINE 50MG/ML VIAL IV PRN (04:30)
[2019-02-12] MEDS ORDERED: IPRATROPIUM/ALBUTEROL 0.5-3(2.5)MG/3ML NEB INH PRN (04:30)
[2019-02-12] MEDS ORDERED: CLONIDINE 0.1MG TABLET PO PRN (04:30)
[2019-02-12] MEDS ORDERED: GUAIFENESIN 200MG/10ML SUGAR FREE UDC PO PRN (04:30)
[2019-02-12] MEDS ORDERED: COR6 MT (10:04)
[2019-02-12] MEDS ORDERED: DONE23TA3 MT (10:23)
[2019-02-12] MEDS ORDERED: CALC667T5 MT (10:23)
[2019-02-12] MEDS ORDERED: AMI2 MT (10:23)
[2019-02-12] MEDS ORDERED: CLON0.5T MT (10:27)
[2019-02-12] MEDS ORDERED: AMLO5TAB88 MT (10:27)
[2019-02-12 10:30] VITALS: BP 156/71
[2019-02-12] MEDS: AMLODIPINE 5MG TABLET PO SCH ×2 (11:53→21:00)
[2019-02-12] MEDS: FAMOTIDINE 20MG/2ML VIAL IV SCH (11:54)
[2019-02-12] MEDS: IPRATROPIUM/ALBUTEROL 0.5-3(2.5)MG/3ML NEB HHN SCH ×2 (11:56→20:00)
[2019-02-12 12:00] VITALS: BP_SYST 116; BP_SYST 151; BP_DIAS 56; BP_DIAS 58
[2019-02-12 12:22] LABS: PHOSPHORUS 3.9 mg/dL (2.5-4.9)
[2019-02-12] MEDS: DILTIAZEM HCL 60MG TABLET PO SCH ×2 (14:07→21:30)
[2019-02-12] MEDS: ACETAMINOPHEN 325MG TABLET PO PRN (14:07)
[2019-02-12] MEDS: SODIUM CHLORIDE 0.9% INJ 3ML FLUSH IVF SCH ×2 (14:08→21:24)
[2019-02-12] MEDS: ONDANSETRON HCL 4MG/2ML INJ IV PRN ×2 (14:54→21:22)
[2019-02-12 16:00] VITALS: BP 116/56
[2019-02-12] MEDS: CARVEDILOL 6.25 MG TABLET PO SCH (16:48)
[2019-02-12 20:00] VITALS: BP 115/43
[2019-02-12] MEDS: ATORVASTATIN CALCIUM 40MG TABLET PO SCH (21:22)
[2019-02-12 22:58] LABS: BG CARBOXYHEMOGLOBIN 0.9 % (0.5-1.5); BG DEOXYHEMOGLOBIN 30.4 % (0.0-5.0); BG FRACTION INSPIRED OXYGEN 40; BG HCO3 ACT 25.7 mmol/L (22.0-26.0); BG METHEMOGLOBIN 0.2 % (0.0-1.5); BG OXYGEN SATURATION 69.3 % (92.0-98.5); BG OXYHEMOGLOBIN 68.5 % (94.0-97.0); BG PCO2 46.2 mmHg (35.0-45.0); BG PH 7.363 (7.350-7.450); BG PO2 39.5 mmHg (75.0-100.0); BG SAMPLE SITE RIGHT BRACHIAL; BG TOTAL HEMOGLOBIN 12.4 g/dL (12.0-18.0)
[2019-02-12] MEDS ORDERED: PIPERACILLIN/TAZ 2.25G PREMIX 50 ML IV SCH (23:30)
[2019-02-13] VITALS (10 sets, daily range): BP systolic 115–148; BP diastolic 51–76
[2019-02-13] MEDS: IPRATROPIUM/ALBUTEROL 0.5-3(2.5)MG/3ML NEB HHN SCH ×4 (01:03→20:18)
[2019-02-13] MEDS: PIPERACILLIN/TAZ 2.25G PREMIX 50 ML IV SCH ×3 (01:25→17:52)
[2019-02-13] MEDS: SODIUM CHLORIDE 0.9% INJ 3ML FLUSH IVF SCH ×3 (05:01→22:00)
[2019-02-13] MEDS: DILTIAZEM HCL 60MG TABLET PO SCH ×3 (05:10→21:25)
[2019-02-13 07:15] LABS: HEMATOCRIT. 32.3 % (36.0-48.0); HEMOGLOBIN. 10.3 g/dL (12.0-16.0); MEAN CORPUSCULAR HEMOGLOBIN 26.9 pg (28.0-32.0); MEAN CORPUSCULAR VOLUME 84.8 fL (81.0-99.0); MEAN PLATELET VOLUME 11.1 fl (7.4-10.4); PLATELET 114 x1000/uL (130-400); RED BLOOD CELL COUNT 3.81 mill/uL (4.2-5.4); RED CELL DISTRIBUTION WIDTH 18.6 % (11.6-14.6)
[2019-02-13] MEDS: AMLODIPINE 5MG TABLET PO SCH ×2 (09:00→21:25)
[2019-02-13] MEDS: CARVEDILOL 6.25 MG TABLET PO SCH ×2 (09:00→17:56)
[2019-02-13 09:54] LABS: PLATELET ESTIMATE DECREASED
[2019-02-13] MEDS: CHOLECALCIFEROL (D3) 1000 UNIT TABLET PO SCH (10:51)
[2019-02-13] MEDS: FAMOTIDINE 20MG/2ML VIAL IV SCH (10:51)
[2019-02-13 12:07] LABS: BG CARBOXYHEMOGLOBIN 0.3 % (0.5-1.5); BG DEOXYHEMOGLOBIN 6.1 % (0.0-5.0); BG FRACTION INSPIRED OXYGEN 100; BG OXYGEN SATURATION 93.9 % (92.0-98.5); BG OXYHEMOGLOBIN 93.6 % (94.0-97.0); BG PH 7.463 (7.350-7.450); BG PO2 69.6 mmHg (75.0-100.0); BG SAMPLE SITE RIGHT RADIAL; BG TOTAL HEMOGLOBIN 10.7 g/dL (12.0-18.0); BG VENT MODE VAPOTHERM
[2019-02-13] MEDS ORDERED: CLONIDINE 0.1MG TABLET PO PRN (16:00)
[2019-02-13] MEDS: ASPIRIN 81MG EC TABLET PO SCH (17:52)
[2019-02-13] MEDS: ATORVASTATIN CALCIUM 40MG TABLET PO SCH (21:24)
[2019-02-14] VITALS (12 sets, daily range): BP systolic 103–144; BP diastolic 37–61
[2019-02-14] MEDS: IPRATROPIUM/ALBUTEROL 0.5-3(2.5)MG/3ML NEB HHN SCH ×6 (00:27→20:48)
[2019-02-14] MEDS: PIPERACILLIN/TAZ 2.25G PREMIX 50 ML IV SCH ×3 (02:50→18:08)
[2019-02-14 06:21] LABS: CHLORIDE 105 mEq/L (98-107)
[2019-02-14 06:30] LABS: HDL CHOLESTEROL 42 mg/dL (40-59)
[2019-02-14 06:31] LABS: CREATINE KINASE MB FRACTION 1.2 ng/mL (0.5-3.6)
[2019-02-14] MEDS: DILTIAZEM HCL 60MG TABLET PO SCH ×3 (06:31→20:59)
[2019-02-14] MEDS: SODIUM CHLORIDE 0.9% INJ 3ML FLUSH IVF SCH ×3 (06:31→21:02)
[2019-02-14 06:32] LABS: LDL CHOLESTEROL 77 mg/dL (5-100)
[2019-02-14] MEDS: FAMOTIDINE 20MG/2ML VIAL IV SCH (09:13)
[2019-02-14] MEDS: CHOLECALCIFEROL (D3) 1000 UNIT TABLET PO SCH (09:56)
[2019-02-14] MEDS: ASPIRIN 81MG EC TABLET PO SCH (09:56)
[2019-02-14] MEDS: AMLODIPINE 5MG TABLET PO SCH ×2 (09:58→21:01)
[2019-02-14 10:24] LABS: BG BASE EXCESS 0.4 mmol/L (-2.0-2.0); BG DEOXYHEMOGLOBIN 4.1 % (0.0-5.0); BG FRACTION INSPIRED OXYGEN 80; BG HCO3 ACT 24.7 mmol/L (22.0-26.0); BG METHEMOGLOBIN 0.2 % (0.0-1.5); BG OXYGEN SATURATION 95.9 % (92.0-98.5); BG OXYHEMOGLOBIN 95.7 % (94.0-97.0); BG PCO2 38.1 mmHg (35.0-45.0); BG PH 7.429 (7.350-7.450); BG SAMPLE SITE RIGHT BRACHIAL; BG TOTAL HEMOGLOBIN 10.1 g/dL (12.0-18.0); BG VENT MODE VAPOTHERM
[2019-02-14 13:34] LABS: HEMATOCRIT. 29.3 % (36.0-48.0); HEMOGLOBIN. 9.5 g/dL (12.0-16.0); MEAN CORPUSCULAR HEMOGLOBIN 27.4 pg (28.0-32.0); MEAN CORPUSCULAR VOLUME 84.6 fL (81.0-99.0); MEAN PLATELET VOLUME 10.7 fl (7.4-10.4); PLATELET 95 x1000/uL (130-400); RED BLOOD CELL COUNT 3.46 mill/uL (4.2-5.4); RED CELL DISTRIBUTION WIDTH 18.5 % (11.6-14.6)
[2019-02-14] MEDS ORDERED: SODIUM CHLORIDE 10% FOR INH 15ML VIAL NEB INH NR (14:00)
[2019-02-14 14:07] LABS: PLATELET ESTIMATE DECREASED
[2019-02-14] MEDS ORDERED: VANCOMYCIN 1250MG in DEXTROSE 5% WATER 250ML IV NR (15:00)
[2019-02-14] MEDS: ACETYLCYSTEINE 100MG/ML 10% VIAL 4ML INH SCH (15:43)
[2019-02-14] MEDS: ONDANSETRON HCL 4MG/2ML INJ IV PRN (20:25)
[2019-02-14] MEDS ORDERED: ATORVASTATIN CALCIUM 20MG TABLET PO SCH (21:00)
[2019-02-14] MEDS: ATORVASTATIN CALCIUM 40MG TABLET PO SCH (21:01)
[2019-02-15] VITALS (12 sets, daily range): BP systolic 107–158; BP diastolic 42–81
[2019-02-15] MEDS: IPRATROPIUM/ALBUTEROL 0.5-3(2.5)MG/3ML NEB HHN SCH ×6 (00:25→21:18)
[2019-02-15] MEDS: ACETYLCYSTEINE 100MG/ML 10% VIAL 4ML INH SCH ×3 (00:26→16:38)
[2019-02-15] MEDS: SODIUM CHLORIDE 0.9% INJ 3ML FLUSH IVF SCH ×3 (02:48→21:26)
[2019-02-15] MEDS: PIPERACILLIN/TAZ 2.25G PREMIX 50 ML IV SCH ×3 (02:48→18:15)
[2019-02-15] MEDS: DILTIAZEM HCL 60MG TABLET PO SCH ×3 (06:11→21:27)
[2019-02-15 07:00] LABS: HEMOGLOBIN. 9.2 g/dL (12.0-16.0); MEAN CORPUSCULAR HEMOGLOBIN 27.7 pg (28.0-32.0); MEAN CORPUSCULAR VOLUME 84.6 fL (81.0-99.0); MEAN PLATELET VOLUME 11.3 fl (7.4-10.4); PLATELET 99 x1000/uL (130-400); RED BLOOD CELL COUNT 3.31 mill/uL (4.2-5.4); RED CELL DISTRIBUTION WIDTH 18.3 % (11.6-14.6)
[2019-02-15 07:11] LABS: CHLORIDE 102 mEq/L (98-107)
[2019-02-15 07:21] LABS: CREATINE KINASE 53 IU/L (26-192)
[2019-02-15 07:25] LABS: CREATINE KINASE MB FRACTION < 1.0 ng/mL (0.5-3.6)
[2019-02-15] MEDS: AMLODIPINE 5MG TABLET PO SCH ×2 (09:00→21:24)
[2019-02-15 09:41] LABS: BG BASE EXCESS 0.6 mmol/L (-2.0-2.0); BG CARBOXYHEMOGLOBIN 0.3 % (0.5-1.5); BG DEOXYHEMOGLOBIN 4.9 % (0.0-5.0); BG FRACTION INSPIRED OXYGEN 50; BG HCO3 ACT 25.1 mmol/L (22.0-26.0); BG METHEMOGLOBIN 0.4 % (0.0-1.5); BG OXYGEN SATURATION 95.1 % (92.0-98.5); BG OXYHEMOGLOBIN 94.4 % (94.0-97.0); BG PCO2 39.6 mmHg (35.0-45.0); BG PH 7.419 (7.350-7.450); BG PO2 79.7 mmHg (75.0-100.0); BG SAMPLE SITE RIGHT BRACHIAL; BG TOTAL HEMOGLOBIN 9.8 g/dL (12.0-18.0); BG VENT MODE VAPOTHERM
[2019-02-15 12:31] LABS: PLATELET ESTIMATE DECREASED
[2019-02-15] MEDS: CHOLECALCIFEROL (D3) 1000 UNIT TABLET PO SCH (13:25)
[2019-02-15] MEDS: FOLIC ACID/VITAMIN B COMP W-C TABLET PO SCH (13:25)
[2019-02-15] MEDS: ASPIRIN 81MG EC TABLET PO SCH (13:26)
[2019-02-15] MEDS: FAMOTIDINE 20MG/2ML VIAL IV SCH (13:26)
[2019-02-15 17:32] LABS: BG BASE EXCESS 3.2 mmol/L (-2.0-2.0); BG CARBOXYHEMOGLOBIN 0.3 % (0.5-1.5); BG DEOXYHEMOGLOBIN 3.8 % (0.0-5.0); BG HCO3 ACT 26.9 mmol/L (22.0-26.0); BG METHEMOGLOBIN 0.2 % (0.0-1.5); BG OXYGEN SATURATION 96.2 % (92.0-98.5); BG OXYHEMOGLOBIN 95.7 % (94.0-97.0); BG PCO2 37.4 mmHg (35.0-45.0); BG PH 7.474 (7.350-7.450); BG PO2 86.7 mmHg (75.0-100.0); BG SAMPLE SITE RIGHT BRACHIAL; BG TOTAL HEMOGLOBIN 11.2 g/dL (12.0-18.0)
[2019-02-15 18:01] LABS: BG FRACTION INSPIRED OXYGEN 32; BG VENT MODE NASAL CANNULA
[2019-02-15] MEDS ORDERED: EPOETIN ALFA 4000UNITS/ML VIAL SUBCUT SCH (21:00)
[2019-02-15] MEDS: ATORVASTATIN CALCIUM 40MG TABLET PO SCH (21:24)
[2019-02-16] VITALS (12 sets, daily range): BP systolic 107–143; BP diastolic 43–73
[2019-02-16] MEDS: IPRATROPIUM/ALBUTEROL 0.5-3(2.5)MG/3ML NEB HHN SCH ×6 (00:03→20:54)
[2019-02-16] MEDS: PIPERACILLIN/TAZ 2.25G PREMIX 50 ML IV SCH ×3 (02:36→17:31)
[2019-02-16] MEDS: ACETYLCYSTEINE 100MG/ML 10% VIAL 4ML INH SCH ×3 (03:27→16:45)
[2019-02-16] MEDS: SODIUM CHLORIDE 0.9% INJ 3ML FLUSH IVF SCH ×3 (05:34→21:00)
[2019-02-16] MEDS: DILTIAZEM HCL 60MG TABLET PO SCH ×3 (06:00→21:00)
[2019-02-16] MEDS: CHOLECALCIFEROL (D3) 1000 UNIT TABLET PO SCH (09:22)
[2019-02-16] MEDS: FOLIC ACID/VITAMIN B COMP W-C TABLET PO SCH (09:22)
[2019-02-16] MEDS: ASPIRIN 81MG EC TABLET PO SCH (09:22)
[2019-02-16] MEDS: AMLODIPINE 5MG TABLET PO SCH ×2 (09:22→20:58)
[2019-02-16] MEDS: FAMOTIDINE 20MG/2ML VIAL IV SCH (09:22)
[2019-02-16] MEDS ORDERED: VANCOMYCIN 750 MG PREMIX 150 ML IV NR (12:00)
[2019-02-16] MEDS: ACETAMINOPHEN 325MG TABLET PO PRN (13:14)
[2019-02-16 16:33] LABS: HEMATOCRIT. 26.5 % (36.0-48.0); HEMOGLOBIN. 8.4 g/dL (12.0-16.0); MEAN CORPUSCULAR HEMOGLOBIN 27.3 pg (28.0-32.0); MEAN CORPUSCULAR VOLUME 85.9 fL (81.0-99.0); MEAN PLATELET VOLUME 11.1 fl (7.4-10.4); PLATELET 111 x1000/uL (130-400); RED BLOOD CELL COUNT 3.09 mill/uL (4.2-5.4); RED CELL DISTRIBUTION WIDTH 18.2 % (11.6-14.6)
[2019-02-16 16:43] LABS: CHLORIDE 106 mEq/L (98-107)
[2019-02-16 18:31] LABS: PLATELET ESTIMATE DECREASED
[2019-02-16] MEDS: ATORVASTATIN CALCIUM 40MG TABLET PO SCH (20:56)
[2019-02-17] VITALS (11 sets, daily range): BP systolic 114–136; BP diastolic 50–82
[2019-02-17] MEDS: IPRATROPIUM/ALBUTEROL 0.5-3(2.5)MG/3ML NEB HHN SCH ×7 (00:42→23:44)
[2019-02-17] MEDS: PIPERACILLIN/TAZ 2.25G PREMIX 50 ML IV SCH ×3 (01:14→17:15)
[2019-02-17] MEDS: SODIUM CHLORIDE 0.9% INJ 3ML FLUSH IVF SCH ×3 (06:27→22:02)
[2019-02-17] MEDS: DILTIAZEM HCL 60MG TABLET PO SCH ×3 (06:28→22:02)
[2019-02-17 06:47] LABS: TOTAL IRON BINDING CAPACITY 112 ug/dL (250-450)
[2019-02-17] MEDS: ASPIRIN 81MG EC TABLET PO SCH (08:53)
[2019-02-17] MEDS: CHOLECALCIFEROL (D3) 1000 UNIT TABLET PO SCH (08:53)
[2019-02-17] MEDS: FAMOTIDINE 20MG/2ML VIAL IV SCH (08:53)
[2019-02-17] MEDS: FOLIC ACID/VITAMIN B COMP W-C TABLET PO SCH (08:54)
[2019-02-17] MEDS: AMLODIPINE 5MG TABLET PO SCH ×2 (08:54→22:02)
[2019-02-17 11:04] LABS: VITAMIN B12 SERUM 623 pg/mL (211-911)
[2019-02-17] MEDS: ACETYLCYSTEINE 100MG/ML 10% VIAL 4ML INH SCH ×2 (12:14→23:44)
[2019-02-17] MEDS: ATORVASTATIN CALCIUM 40MG TABLET PO SCH (22:02)
[2019-02-18] VITALS (11 sets, daily range): BP systolic 114–159; BP diastolic 49–72
[2019-02-18] MEDS: PIPERACILLIN/TAZ 2.25G PREMIX 50 ML IV SCH ×3 (02:42→10:00)
[2019-02-18] MEDS: IPRATROPIUM/ALBUTEROL 0.5-3(2.5)MG/3ML NEB HHN SCH ×4 (04:42→15:45)
[2019-02-18] MEDS: SODIUM CHLORIDE 0.9% INJ 3ML FLUSH IVF SCH ×2 (05:10→14:06)
[2019-02-18] MEDS: DILTIAZEM HCL 60MG TABLET PO SCH ×2 (05:10→15:37)
[2019-02-18 06:01] LABS: EOSINOPHILS % 5.4 % (0.0-5.0); HEMATOCRIT. 26.6 % (36.0-48.0); HEMOGLOBIN. 8.7 g/dL (12.0-16.0); MEAN CORPUSCULAR HEMOGLOBIN 27.7 pg (28.0-32.0); MEAN CORPUSCULAR VOLUME 85.1 fL (81.0-99.0); MEAN PLATELET VOLUME 10.7 fl (7.4-10.4); MONOCYTES % 8.3 % (2.0-8.0); NEUTROPHILS % 76.3 % (40.0-76.0); PLATELET 136 x1000/uL (130-400); RED BLOOD CELL COUNT 3.13 mill/uL (4.2-5.4); RED CELL DISTRIBUTION WIDTH 17.8 % (11.6-14.6)
[2019-02-18] MEDS: ACETYLCYSTEINE 100MG/ML 10% VIAL 4ML INH SCH (07:51)
[2019-02-18] MEDS: AMLODIPINE 5MG TABLET PO SCH (08:39)
[2019-02-18] MEDS: CHOLECALCIFEROL (D3) 1000 UNIT TABLET PO SCH (09:40)
[2019-02-18] MEDS: FOLIC ACID/VITAMIN B COMP W-C TABLET PO SCH (09:40)
[2019-02-18] MEDS: FAMOTIDINE 20MG/2ML VIAL IV SCH (09:40)
[2019-02-18] MEDS: ASPIRIN 81MG EC TABLET PO SCH (09:40)
[2019-02-18] MEDS ORDERED: CLOPIDOGREL 75MG TABLET PO SCH (09:45)
== END 2019-02-18 18:42 | DRG 177 ==
LOC: ER 00:43 → 8WST 02:49 → EDBEDREQTM 02:52 → EDBEDREQ 02:52 → EDBEDREQSVC 02:52 → ENRESERV 07:18 → 5EST 23:36
PROVIDERS: ADMIT Internal Medicine; ATTEND Internal Medicine
PROC: 5A1D70Z Performance of Urinary Filtration, Intermittent, Less than 6 Hours Per Day (ICD-10-PCS; principal; 2019-02-13)
PROC: 5A1D70Z Performance of Urinary Filtration, Intermittent, Less than 6 Hours Per Day (ICD-10-PCS; 2019-02-15)
PROC: 5A1D70Z Performance of Urinary Filtration, Intermittent, Less than 6 Hours Per Day (ICD-10-PCS; 2019-02-18)
DX: J69.0 Pneumonitis due to inhalation of food and vomit (principal); I21.4 Non-ST elevation (NSTEMI) myocardial infarction; I50.23 Acute on chronic systolic (congestive) heart failure; J96.01 Acute respiratory failure with hypoxia; N18.6 End stage renal disease; I13.2 Hypertensive heart and chronic kidney disease with heart failure and with stage 5 chronic kidney disease, or end stage renal disease; E87.70 Fluid overload, unspecified; E11.22 Type 2 diabetes mellitus with diabetic chronic kidney disease; E78.5 Hyperlipidemia, unspecified; D69.6 Thrombocytopenia, unspecified; E11.51 Type 2 diabetes mellitus with diabetic peripheral angiopathy without gangrene; E78.00 Pure hypercholesterolemia, unspecified; E87.5 Hyperkalemia; I25.10 Atherosclerotic heart disease of native coronary artery without angina pectoris; G30.9 Alzheimer's disease, unspecified; F02.80 Dementia in other diseases classified elsewhere, unspecified severity, without behavioral disturbance, psychotic disturbance, mood disturbance, and anxiety; D63.8 Anemia in other chronic diseases classified elsewhere; M19.90 Unspecified osteoarthritis, unspecified site; I27.20 Pulmonary hypertension, unspecified; I48.91 Unspecified atrial fibrillation; M10.9 Gout, unspecified; Z87.891 Personal history of nicotine dependence; Z89.511 Acquired absence of right leg below knee; Z99.2 Dependence on renal dialysis; Z89.512 Acquired absence of left leg below knee; Z88.8 Allergy status to other drugs, medicaments and biological substances; Z91.041 Radiographic dye allergy status; Z79.82 Long term (current) use of aspirin; Z79.899 Other long term (current) drug therapy
CPT/HCPCS: 36415; 36600; 71045; 74018; 80048; 80061; 80202; 82310; 82375; 82550; 82553; 82607; 82805; 82962; 83540; 83550; 83605; 83735; 83880; 84100; 84145; 84443; 84484; 85379; 87804; 93005; 93306; 93970; 94640; 96374; 97162; 97166; 99291; A6261; J0885; J1200; J2405; J2543; J3370; J3490; J7050; J7060; J7131; J7608; J7620

== ENCOUNTER 2020-04-19 23:09 | Inpatient (IN) | payer MEDICARE, MEDICAID ==
[~2020-04-19] VITALS: Ht 160 cm; Wt 53.5 kg
[~2020-04-19 23:09] MED LIST changes: +AMI2 PO; -AMIODARONE HCL PO; +AMLO5TAB88 PO; -ASCO500C6 PO; -ASPI-1159 PO; +ASPI-1497 PO; +COR6 PO; -DILT180C66 PO; +DILT60TA3 PO; +DONE10TA43 PO; -HYDR-523 PO; -IPRA0.2S51 IH; -LACT10SO6 PO; +LEVO250T58 MT; -PROSTAT SF PO; -RENA-VITE PO; -ROBAFEN PO
[2020-04-20 00:30] LABS: HEMATOCRIT. 25.3 % (36.0-48.0); HEMOGLOBIN. 8.5 g/dL (12.0-16.0); MEAN CORPUSCULAR HEMOGLOBIN 28.1 pg (28.0-32.0); MEAN CORPUSCULAR VOLUME 83.3 fL (81.0-99.0); MEAN PLATELET VOLUME 10.1 fl (7.4-10.4); PLATELET 127 x1000/uL (130-400); RED BLOOD CELL COUNT 3.04 mill/uL (4.2-5.4); RED CELL DISTRIBUTION WIDTH 17.4 % (11.6-14.6)
[2020-04-20 00:34] LABS: CHLORIDE 103 mEq/L (98-107)
[2020-04-20 00:37] LABS: PROTHROMBIN TIME 10.7 sec (9.6-11.0)
[2020-04-20 01:19] LABS: NUCLEATED RED BLOOD CELLS 1 /100 WBC
[2020-04-20 01:20] LABS: PLATELET ESTIMATE SLIGHTLY DECREASED
[2020-04-20 01:36] LABS: CLARITY URINE TURBID (CLEAR); COLOR URINE YELLOW (YELLOW); KETONES URINE NEGATIVE (NEGATIVE); LEUKOCYTE ESTERASE URINE 3+ (NEGATIVE); NITRITE URINE NEGATIVE (NEGATIVE); OCCULT BLOOD URINE 3+ (NEGATIVE); PH URINE 8.5 (4.5-8.0); PROTEIN URINE 2+ (NEGATIVE); SPECIFIC GRAVITY URINE 1.013 (1.005-1.030); UROBILINOGEN URINE 0.2 E.U./dL (0.2-1.0)
[2020-04-20] MEDS ORDERED: LEVOFLOXACIN 750MG PREMIX 150 ML IV ONE (02:00)
[2020-04-20] MEDS ORDERED: IPRATROPIUM BROMIDE (0.02%) 0.5MG/2.5ML NEB HHN PRN (10:15)
[2020-04-20 10:31] VITALS: BP 153/69
[2020-04-20] MEDS ORDERED: EPOETIN ALFA 10000UNITS/ML VIAL SUBCUT NR ×2 (11:00→21:00)
[2020-04-20 12:00] VITALS: BP 137/65
[2020-04-20] MEDS ORDERED: DOCUSATE SODIUM 100MG CAPSULE PO PRN (12:30)
[2020-04-20] MEDS ORDERED: ONDANSETRON HCL 4MG/2ML INJ IV PRN (12:30)
[2020-04-20] MEDS ORDERED: CLONIDINE 0.1MG TABLET PO PRN (12:30)
[2020-04-20] MEDS ORDERED: GUAIFENESIN 200MG/10ML SUGAR FREE UDC PO PRN (12:30)
[2020-04-20] MEDS ORDERED: ACETAMINOPHEN 325MG TABLET PO PRN (12:30)
[2020-04-20] MEDS ORDERED: HYDROCODONE/ACETAMINOPHEN 5/325MG TABLET PO PRN (12:30)
[2020-04-20] MEDS ORDERED: LORAZEPAM 0.5MG TABLET PO PRN (12:30)
[2020-04-20] MEDS: ENOXAPARIN 30MG/0.3ML SYR SUBCUT SCH (13:00)
[2020-04-20] MEDS: AZITHROMYCIN 500 MG TABLET PO SCH (13:56)
[2020-04-20] MEDS: AMIODARONE HCL 200 MG TABLET PO SCH (13:56)
[2020-04-20] MEDS: SEVELAMER CARBONATE 800 MG TABLET PO SCH ×2 (13:56→17:49)
[2020-04-20] MEDS ORDERED: CEFTRIAXONE 1 G PREMIX 50 ML IV SCH (14:00)
[2020-04-20 16:00] VITALS: BP 142/71
[2020-04-20] MEDS: DILTIAZEM HCL 60MG TABLET PO SCH (16:00)
[2020-04-20] MEDS: CLOPIDOGREL 75MG TABLET PO SCH (17:49)
[2020-04-20 20:00] VITALS: BP 151/82
[2020-04-20] MEDS: AMLODIPINE 5MG TABLET PO SCH (21:00)
[2020-04-20] MEDS: CARVEDILOL 6.25 MG TABLET PO SCH (21:00)
[2020-04-20] MEDS: ATORVASTATIN CALCIUM 40MG TABLET PO SCH (22:04)
[2020-04-20] MEDS: MEMANTINE HCL 5MG TABLET PO SCH (22:04)
[2020-04-20] MEDS ORDERED: CEFEPIME 1,000 MG in DEXTROSE 5% WATER 50 ML IV NR (23:00)
[2020-04-21] VITALS (8 sets, daily range): BP systolic 103–164; BP diastolic 38–93
[2020-04-21 02:02] LABS: VITAMIN B12 SERUM 1110 pg/mL (211-911)
[2020-04-21 03:36] LABS: FOLIC ACID (FOLATE) SERUM > 20.00 ng/mL (>5.38)
[2020-04-21 08:13] LABS: FERRITIN 2204 ng/mL (10-291)
[2020-04-21] MEDS: AZITHROMYCIN 500 MG TABLET PO SCH (08:17)
[2020-04-21] MEDS: AMLODIPINE 5MG TABLET PO SCH ×2 (08:17→20:46)
[2020-04-21] MEDS: ASPIRIN 81MG EC TABLET PO SCH (08:17)
[2020-04-21] MEDS: DONEPEZIL HCL 10MG TABLET PO SCH (08:17)
[2020-04-21] MEDS: SEVELAMER CARBONATE 800 MG TABLET PO SCH ×3 (08:17→16:54)
[2020-04-21] MEDS: AMIODARONE HCL 200 MG TABLET PO SCH (08:17)
[2020-04-21] MEDS: MEMANTINE HCL 5MG TABLET PO SCH ×2 (08:18→20:46)
[2020-04-21] MEDS: CLOPIDOGREL 75MG TABLET PO SCH (08:18)
[2020-04-21] MEDS: CARVEDILOL 6.25 MG TABLET PO SCH ×2 (08:18→20:46)
[2020-04-21] MEDS: CITALOPRAM HYDROBROMIDE 10MG TABLET PO SCH (08:18)
[2020-04-21] MEDS: DILTIAZEM HCL 60MG TABLET PO SCH ×3 (08:18→16:54)
[2020-04-21] MEDS: DOCUSATE SODIUM 100MG CAPSULE PO SCH (08:18)
[2020-04-21] MEDS: ENOXAPARIN 30MG/0.3ML SYR SUBCUT SCH (08:19)
[2020-04-21 08:44] LABS: BASOPHILS % 0.6 % (0.0-2.0); EOSINOPHILS % 1.2 % (0.0-5.0); HEMATOCRIT. 25.3 % (36.0-48.0); HEMOGLOBIN. 8.3 g/dL (12.0-16.0); LYMPHOCYTES % 7.2 % (20.0-50.0); MEAN CORPUSCULAR HEMOGLOBIN 27.7 pg (28.0-32.0); MEAN PLATELET VOLUME 9.7 fl (7.4-10.4); MONOCYTES % 11.4 % (2.0-8.0); NEUTROPHILS % 79.6 % (40.0-76.0); PLATELET 123 x1000/uL (130-400); RED BLOOD CELL COUNT 2.98 mill/uL (4.2-5.4); RED CELL DISTRIBUTION WIDTH 17.4 % (11.6-14.6)
[2020-04-21 08:53] LABS: CHLORIDE 115 mEq/L (98-107)
[2020-04-21 09:01] LABS: PHOSPHORUS 2.5 mg/dL (2.5-4.9)
[2020-04-21] MEDS: CEFEPIME 500 MG in DEXTROSE 5% WATER 50 ML IV SCH (20:45)
[2020-04-21] MEDS: ATORVASTATIN CALCIUM 40MG TABLET PO SCH (20:45)
[2020-04-22] VITALS: BP 117/75
[2020-04-22] MEDS: DILTIAZEM HCL 60MG TABLET PO SCH ×4 (02:11→21:56)
[2020-04-22 04:00] VITALS: BP 111/44
[2020-04-22 07:16] LABS: HEMATOCRIT. 22.3 % (36.0-48.0); HEMOGLOBIN. 7.3 g/dL (12.0-16.0); MEAN CORPUSCULAR HEMOGLOBIN 27.7 pg (28.0-32.0); MEAN CORPUSCULAR VOLUME 85.2 fL (81.0-99.0); PLATELET 131 x1000/uL (130-400); RED BLOOD CELL COUNT 2.62 mill/uL (4.2-5.4); RED CELL DISTRIBUTION WIDTH 18.5 % (11.6-14.6)
[2020-04-22 08:00] VITALS: BP 132/87
[2020-04-22] MEDS: SEVELAMER CARBONATE 800 MG TABLET PO SCH ×3 (08:36→16:53)
[2020-04-22] MEDS: DOCUSATE SODIUM 100MG CAPSULE PO SCH (08:45)
[2020-04-22] MEDS: AZITHROMYCIN 500 MG TABLET PO SCH (08:45)
[2020-04-22] MEDS: CLOPIDOGREL 75MG TABLET PO SCH (08:45)
[2020-04-22] MEDS: DONEPEZIL HCL 10MG TABLET PO SCH (08:45)
[2020-04-22] MEDS: ASPIRIN 81MG EC TABLET PO SCH (08:45)
[2020-04-22] MEDS: CITALOPRAM HYDROBROMIDE 10MG TABLET PO SCH (08:46)
[2020-04-22] MEDS: CARVEDILOL 6.25 MG TABLET PO SCH (08:46)
[2020-04-22] MEDS: MEMANTINE HCL 5MG TABLET PO SCH ×2 (08:47→21:55)
[2020-04-22] MEDS: ENOXAPARIN 30MG/0.3ML SYR SUBCUT SCH (08:47)
[2020-04-22] MEDS: AMLODIPINE 5MG TABLET PO SCH ×2 (08:47→21:57)
[2020-04-22] MEDS: AMIODARONE HCL 200 MG TABLET PO SCH (08:47)
[2020-04-22 11:15] LABS: NUCLEATED RED BLOOD CELLS 1 /100 WBC
[2020-04-22 11:16] LABS: PLATELET ESTIMATE NORMAL
[2020-04-22 12:00] VITALS: BP 84/31
[2020-04-22 16:00] VITALS: BP 133/68
[2020-04-22] MEDS: CEFEPIME 500 MG in DEXTROSE 5% WATER 50 ML IV SCH (21:55)
[2020-04-22] MEDS: CARVEDILOL 12.5MG TABLET PO SCH (21:56)
[2020-04-22] MEDS: ATORVASTATIN CALCIUM 40MG TABLET PO SCH (21:57)
[2020-04-23] VITALS: BP 109/51
[2020-04-23 04:00] VITALS: BP 121/58
[2020-04-23 07:03] LABS: BASOPHILS % 0.6 % (0.0-2.0); EOSINOPHILS % 3.4 % (0.0-5.0); HEMATOCRIT. 24.1 % (36.0-48.0); HEMOGLOBIN. 7.9 g/dL (12.0-16.0); LYMPHOCYTES % 16.4 % (20.0-50.0); MEAN CORPUSCULAR VOLUME 85.3 fL (81.0-99.0); MEAN PLATELET VOLUME 9.8 fl (7.4-10.4); MONOCYTES % 10.7 % (2.0-8.0); NEUTROPHILS % 68.9 % (40.0-76.0); PLATELET 144 x1000/uL (130-400); RED BLOOD CELL COUNT 2.83 mill/uL (4.2-5.4); RED CELL DISTRIBUTION WIDTH 18.2 % (11.6-14.6)
[2020-04-23 08:00] VITALS: BP 115/46
[2020-04-23] MEDS: AZITHROMYCIN 500 MG TABLET PO SCH (09:00)
[2020-04-23] MEDS: AMLODIPINE 5MG TABLET PO SCH ×2 (09:00→21:50)
[2020-04-23] MEDS: CARVEDILOL 12.5MG TABLET PO SCH ×2 (09:00→21:19)
[2020-04-23] MEDS: ASPIRIN 81MG EC TABLET PO SCH (09:33)
[2020-04-23] MEDS: SEVELAMER CARBONATE 800 MG TABLET PO SCH ×3 (09:33→17:50)
[2020-04-23] MEDS: DONEPEZIL HCL 10MG TABLET PO SCH (09:34)
[2020-04-23] MEDS: MEMANTINE HCL 5MG TABLET PO SCH ×2 (09:34→21:19)
[2020-04-23] MEDS: DILTIAZEM HCL 60MG TABLET PO SCH ×2 (09:34→17:38)
[2020-04-23] MEDS: DOCUSATE SODIUM 100MG CAPSULE PO SCH (09:34)
[2020-04-23] MEDS: AMIODARONE HCL 200 MG TABLET PO SCH (09:34)
[2020-04-23] MEDS: CLOPIDOGREL 75MG TABLET PO SCH (09:34)
[2020-04-23] MEDS: CITALOPRAM HYDROBROMIDE 10MG TABLET PO SCH (09:34)
[2020-04-23] MEDS: ENOXAPARIN 30MG/0.3ML SYR SUBCUT SCH (09:34)
[2020-04-23 12:00] VITALS: BP 124/53
[2020-04-23 16:04] VITALS: BP 144/72
[2020-04-23 20:00] VITALS: BP 132/56
[2020-04-23] MEDS: CEFEPIME 500 MG in DEXTROSE 5% WATER 50 ML IV SCH (21:18)
[2020-04-23] MEDS: ATORVASTATIN CALCIUM 40MG TABLET PO SCH (21:19)
[2020-04-23] MEDS: EPOETIN ALFA 10000UNITS/ML VIAL SUBCUT SCH (21:51)
[2020-04-24] VITALS: BP 107/57
[2020-04-24 04:00] VITALS: BP 111/52
[2020-04-24 08:00] VITALS: BP 115/52
[2020-04-24] MEDS: AZITHROMYCIN 500 MG TABLET PO SCH (09:01)
[2020-04-24] MEDS: DOCUSATE SODIUM 100MG CAPSULE PO SCH (09:01)
[2020-04-24] MEDS: CARVEDILOL 12.5MG TABLET PO SCH ×2 (09:01→20:59)
[2020-04-24] MEDS: ENOXAPARIN 30MG/0.3ML SYR SUBCUT SCH (09:01)
[2020-04-24] MEDS: CITALOPRAM HYDROBROMIDE 10MG TABLET PO SCH (09:02)
[2020-04-24] MEDS: CLOPIDOGREL 75MG TABLET PO SCH (09:02)
[2020-04-24] MEDS: ASPIRIN 81MG EC TABLET PO SCH (09:02)
[2020-04-24] MEDS: DONEPEZIL HCL 10MG TABLET PO SCH (09:02)
[2020-04-24] MEDS: DILTIAZEM HCL 60MG TABLET PO SCH ×3 (09:02→15:46)
[2020-04-24] MEDS: SEVELAMER CARBONATE 800 MG TABLET PO SCH ×3 (09:02→17:43)
[2020-04-24] MEDS: MEMANTINE HCL 5MG TABLET PO SCH ×2 (09:02→20:58)
[2020-04-24] MEDS: AMLODIPINE 5MG TABLET PO SCH ×2 (09:02→21:00)
[2020-04-24] MEDS: AMIODARONE HCL 200 MG TABLET PO SCH (09:02)
[2020-04-24 12:00] VITALS: BP 98/42
[2020-04-24 16:00] VITALS: BP 110/52
[2020-04-24 20:00] VITALS: BP 109/49
[2020-04-24] MEDS: ATORVASTATIN CALCIUM 40MG TABLET PO SCH (20:58)
[2020-04-24] MEDS: CEFEPIME 500 MG in DEXTROSE 5% WATER 50 ML IV SCH (20:58)
[2020-04-25] VITALS: BP 118/43
[2020-04-25] MEDS: DILTIAZEM HCL 60MG TABLET PO SCH (01:06)
[2020-04-25 04:00] VITALS: BP_SYST 127; BP_SYST 138; BP_DIAS 67; BP_DIAS 80
[2020-04-25 08:00] VITALS: BP 132/63
[2020-04-25 08:22] LABS: HEMATOCRIT. 25.4 % (36.0-48.0); HEMOGLOBIN. 8.3 g/dL (12.0-16.0); MEAN CORPUSCULAR VOLUME 85.7 fL (81.0-99.0); MEAN PLATELET VOLUME 9.4 fl (7.4-10.4); PLATELET 147 x1000/uL (130-400); RED BLOOD CELL COUNT 2.96 mill/uL (4.2-5.4); RED CELL DISTRIBUTION WIDTH 17.9 % (11.6-14.6)
[2020-04-25] MEDS: DOCUSATE SODIUM 100MG CAPSULE PO SCH (08:40)
[2020-04-25] MEDS: DONEPEZIL HCL 10MG TABLET PO SCH (08:40)
[2020-04-25] MEDS: MEMANTINE HCL 5MG TABLET PO SCH ×2 (08:40→21:30)
[2020-04-25] MEDS: AZITHROMYCIN 500 MG TABLET PO SCH (08:40)
[2020-04-25] MEDS: ASPIRIN 81MG EC TABLET PO SCH (08:40)
[2020-04-25] MEDS: CITALOPRAM HYDROBROMIDE 10MG TABLET PO SCH (08:40)
[2020-04-25] MEDS: SEVELAMER CARBONATE 800 MG TABLET PO SCH ×3 (08:40→17:31)
[2020-04-25] MEDS: AMIODARONE HCL 200 MG TABLET PO SCH (08:41)
[2020-04-25] MEDS: ENOXAPARIN 30MG/0.3ML SYR SUBCUT SCH (08:41)
[2020-04-25] MEDS: CLOPIDOGREL 75MG TABLET PO SCH (08:41)
[2020-04-25] MEDS: CARVEDILOL 12.5MG TABLET PO SCH ×2 (08:41→21:29)
[2020-04-25 12:00] VITALS: BP 113/50
[2020-04-25 14:55] LABS: PLATELET ESTIMATE NORMAL
[2020-04-25 16:00] VITALS: BP 128/53
[2020-04-25 20:15] VITALS: BP 123/58
[2020-04-25] MEDS: EPOETIN ALFA 10000UNITS/ML VIAL SUBCUT SCH (21:30)
[2020-04-25] MEDS: ATORVASTATIN CALCIUM 40MG TABLET PO SCH (21:30)
[2020-04-25] MEDS: CEFEPIME 500 MG in DEXTROSE 5% WATER 50 ML IV SCH (21:30)
[2020-04-26] VITALS (8 sets, daily range): BP systolic 113–146; BP diastolic 42–74
[2020-04-26 06:16] LABS: BASOPHILS % 0.6 % (0.0-2.0); EOSINOPHILS % 2.4 % (0.0-5.0); HEMATOCRIT. 25.3 % (36.0-48.0); HEMOGLOBIN. 8.3 g/dL (12.0-16.0); LYMPHOCYTES % 16.3 % (20.0-50.0); MEAN CORPUSCULAR HEMOGLOBIN 28.4 pg (28.0-32.0); MEAN CORPUSCULAR VOLUME 86.8 fL (81.0-99.0); MEAN PLATELET VOLUME 8.7 fl (7.4-10.4); MONOCYTES % 8.4 % (2.0-8.0); NEUTROPHILS % 72.3 % (40.0-76.0); PLATELET 138 x1000/uL (130-400); RED BLOOD CELL COUNT 2.92 mill/uL (4.2-5.4); RED CELL DISTRIBUTION WIDTH 18.1 % (11.6-14.6)
[2020-04-26] MEDS: AZITHROMYCIN 500 MG TABLET PO SCH (09:00)
[2020-04-26] MEDS: AMIODARONE HCL 200 MG TABLET PO SCH (10:06)
[2020-04-26] MEDS: MEMANTINE HCL 5MG TABLET PO SCH ×2 (10:06→20:52)
[2020-04-26] MEDS: ENOXAPARIN 30MG/0.3ML SYR SUBCUT SCH (10:07)
[2020-04-26] MEDS: DOCUSATE SODIUM 100MG CAPSULE PO SCH (10:07)
[2020-04-26] MEDS: CLOPIDOGREL 75MG TABLET PO SCH (10:07)
[2020-04-26] MEDS: ASPIRIN 81MG EC TABLET PO SCH (10:07)
[2020-04-26] MEDS: CARVEDILOL 12.5MG TABLET PO SCH ×2 (10:16→20:52)
[2020-04-26] MEDS: SEVELAMER CARBONATE 800 MG TABLET PO SCH ×3 (10:18→17:59)
[2020-04-26] MEDS: CITALOPRAM HYDROBROMIDE 10MG TABLET PO SCH (13:25)
[2020-04-26] MEDS: DONEPEZIL HCL 10MG TABLET PO SCH (13:25)
[2020-04-26] MEDS: GUAIFENESIN 600MG ER TABLET PO SCH (20:51)
[2020-04-26] MEDS: CEFEPIME 500 MG in DEXTROSE 5% WATER 50 ML IV SCH (20:52)
[2020-04-26] MEDS: ATORVASTATIN CALCIUM 40MG TABLET PO SCH (20:52)
[2020-04-26] MEDS: IPRATROPIUM/ALBUTEROL 0.5-3(2.5)MG/3ML NEB HHN SCH (21:19)
[2020-04-27] VITALS: BP 111/51
[2020-04-27 04:00] VITALS: BP 149/61
[2020-04-27] MEDS: IPRATROPIUM/ALBUTEROL 0.5-3(2.5)MG/3ML NEB HHN SCH ×4 (08:37→21:01)
[2020-04-27] MEDS: SEVELAMER CARBONATE 800 MG TABLET PO SCH ×3 (10:03→18:15)
[2020-04-27] MEDS: CARVEDILOL 12.5MG TABLET PO SCH ×2 (10:03→21:50)
[2020-04-27] MEDS: MEMANTINE HCL 5MG TABLET PO SCH ×2 (10:03→21:50)
[2020-04-27] MEDS: GUAIFENESIN 600MG ER TABLET PO SCH ×2 (10:03→21:51)
[2020-04-27] MEDS: CLOPIDOGREL 75MG TABLET PO SCH (10:04)
[2020-04-27] MEDS: AZITHROMYCIN 500 MG TABLET PO SCH (10:04)
[2020-04-27] MEDS: DOCUSATE SODIUM 100MG CAPSULE PO SCH (10:04)
[2020-04-27] MEDS: CITALOPRAM HYDROBROMIDE 10MG TABLET PO SCH (10:04)
[2020-04-27] MEDS: DONEPEZIL HCL 10MG TABLET PO SCH (10:04)
[2020-04-27] MEDS: ASPIRIN 81MG EC TABLET PO SCH (10:04)
[2020-04-27] MEDS: AMIODARONE HCL 200 MG TABLET PO SCH (10:05)
[2020-04-27] MEDS: ENOXAPARIN 30MG/0.3ML SYR SUBCUT SCH (10:07)
[2020-04-27 12:00] VITALS: BP 137/57
[2020-04-27] MEDS ORDERED: HYDROCODONE/ACETAMINOPHEN 5/325MG TABLET PO PRN (13:45)
[2020-04-27] MEDS ORDERED: MORPHINE SULFATE 2 MG/ML CPJ (NOT FOR IM USE) IV PRN (13:45)
[2020-04-27 16:00] VITALS: BP 114/50
[2020-04-27 20:00] VITALS: BP 135/69
[2020-04-27] MEDS: ATORVASTATIN CALCIUM 40MG TABLET PO SCH (21:50)
[2020-04-28 00:29] VITALS: BP 106/50
[2020-04-28] MEDS: IPRATROPIUM/ALBUTEROL 0.5-3(2.5)MG/3ML NEB HHN SCH ×4 (02:08→21:14)
[2020-04-28 04:00] VITALS: BP 143/65
[2020-04-28 08:00] VITALS: BP 142/45
[2020-04-28] MEDS: AMIODARONE HCL 200 MG TABLET PO SCH (08:51)
[2020-04-28] MEDS: ASPIRIN 81MG EC TABLET PO SCH (08:51)
[2020-04-28] MEDS: SEVELAMER CARBONATE 800 MG TABLET PO SCH ×3 (08:51→17:50)
[2020-04-28] MEDS: CLOPIDOGREL 75MG TABLET PO SCH (08:51)
[2020-04-28] MEDS: DOCUSATE SODIUM 100MG CAPSULE PO SCH (08:51)
[2020-04-28] MEDS: CARVEDILOL 12.5MG TABLET PO SCH ×2 (08:52→20:42)
[2020-04-28] MEDS: DONEPEZIL HCL 10MG TABLET PO SCH (08:52)
[2020-04-28] MEDS: CITALOPRAM HYDROBROMIDE 10MG TABLET PO SCH (08:52)
[2020-04-28] MEDS: ENOXAPARIN 30MG/0.3ML SYR SUBCUT SCH (08:53)
[2020-04-28] MEDS: GUAIFENESIN 600MG ER TABLET PO SCH ×2 (09:00→20:41)
[2020-04-28] MEDS: MEMANTINE HCL 5MG TABLET PO SCH ×2 (09:00→20:41)
[2020-04-28 12:00] VITALS: BP 146/53
[2020-04-28 16:00] VITALS: BP 140/68
[2020-04-28 20:15] VITALS: BP 147/58
[2020-04-28] MEDS: ATORVASTATIN CALCIUM 40MG TABLET PO SCH (20:41)
[2020-04-28] MEDS: EPOETIN ALFA 10000UNITS/ML VIAL SUBCUT SCH (20:42)
[2020-04-29] VITALS (7 sets, daily range): BP systolic 115–137; BP diastolic 47–58
[2020-04-29] MEDS: IPRATROPIUM/ALBUTEROL 0.5-3(2.5)MG/3ML NEB HHN SCH ×4 (03:37→21:14)
[2020-04-29] MEDS: ASPIRIN 81MG EC TABLET PO SCH (08:35)
[2020-04-29] MEDS: CLOPIDOGREL 75MG TABLET PO SCH (08:35)
[2020-04-29] MEDS: SEVELAMER CARBONATE 800 MG TABLET PO SCH ×2 (08:35→12:19)
[2020-04-29] MEDS: CARVEDILOL 12.5MG TABLET PO SCH ×2 (08:35→21:31)
[2020-04-29] MEDS: DONEPEZIL HCL 10MG TABLET PO SCH (08:35)
[2020-04-29] MEDS: AMIODARONE HCL 200 MG TABLET PO SCH (08:35)
[2020-04-29] MEDS: GUAIFENESIN 600MG ER TABLET PO SCH ×2 (08:35→21:30)
[2020-04-29] MEDS: DOCUSATE SODIUM 100MG CAPSULE PO SCH (08:36)
[2020-04-29] MEDS: CITALOPRAM HYDROBROMIDE 10MG TABLET PO SCH (08:36)
[2020-04-29] MEDS: ENOXAPARIN 30MG/0.3ML SYR SUBCUT SCH (08:36)
[2020-04-29] MEDS: MEMANTINE HCL 5MG TABLET PO SCH ×2 (08:36→21:30)
[2020-04-29] MEDS: ATORVASTATIN CALCIUM 40MG TABLET PO SCH (21:30)
[2020-04-30 00:17] VITALS: BP 117/56
== END 2020-04-30 00:30 | DRG 871 ==
LOC: ER 23:09 → MICUSO 04-20 02:15 → EDBEDREQ 04-20 02:22 → 7WST 04-20 09:45 → 6WST 04-21 01:56
PROVIDERS: ADMIT Internal Medicine; ATTEND Internal Medicine
PROC: 5A1D70Z Performance of Urinary Filtration, Intermittent, Less than 6 Hours Per Day (ICD-10-PCS; principal; 2020-04-20)
PROC: 5A1D70Z Performance of Urinary Filtration, Intermittent, Less than 6 Hours Per Day (ICD-10-PCS; 2020-04-23)
PROC: 5A1D70Z Performance of Urinary Filtration, Intermittent, Less than 6 Hours Per Day (ICD-10-PCS; 2020-04-25)
PROC: 5A1D70Z Performance of Urinary Filtration, Intermittent, Less than 6 Hours Per Day (ICD-10-PCS; 2020-04-27)
PROC: 5A1D70Z Performance of Urinary Filtration, Intermittent, Less than 6 Hours Per Day (ICD-10-PCS; 2020-04-29)
DX: A41.9 Sepsis, unspecified organism (principal); J96.00 Acute respiratory failure, unspecified whether with hypoxia or hypercapnia; J18.9 Pneumonia, unspecified organism; N18.6 End stage renal disease; I21.4 Non-ST elevation (NSTEMI) myocardial infarction; N39.0 Urinary tract infection, site not specified; I12.0 Hypertensive chronic kidney disease with stage 5 chronic kidney disease or end stage renal disease; D69.6 Thrombocytopenia, unspecified; E11.65 Type 2 diabetes mellitus with hyperglycemia; I27.20 Pulmonary hypertension, unspecified; E78.5 Hyperlipidemia, unspecified; G30.9 Alzheimer's disease, unspecified; E11.22 Type 2 diabetes mellitus with diabetic chronic kidney disease; K80.20 Calculus of gallbladder without cholecystitis without obstruction; E78.00 Pure hypercholesterolemia, unspecified; M10.9 Gout, unspecified; I25.10 Atherosclerotic heart disease of native coronary artery without angina pectoris; E11.51 Type 2 diabetes mellitus with diabetic peripheral angiopathy without gangrene; D72.810 Lymphocytopenia; F02.80 Dementia in other diseases classified elsewhere, unspecified severity, without behavioral disturbance, psychotic disturbance, mood disturbance, and anxiety; I48.0 Paroxysmal atrial fibrillation; Z20.828 Contact with and (suspected) exposure to other viral communicable diseases; R56.9 Unspecified convulsions; D63.8 Anemia in other chronic diseases classified elsewhere; I25.2 Old myocardial infarction; Z79.2 Long term (current) use of antibiotics; Z91.041 Radiographic dye allergy status; Z79.82 Long term (current) use of aspirin; Z89.511 Acquired absence of right leg below knee; Z89.512 Acquired absence of left leg below knee; Z99.2 Dependence on renal dialysis; Z87.440 Personal history of urinary (tract) infections
CPT/HCPCS: 36415; 71045; 74176; 80048; 80053; 81003; 82607; 82728; 82746; 83540; 83550; 83735; 84100; 84134; 84484; 85025; 93005; 96365; 99285; J0692; J0696; J0885; J1650; J1956; J2405; J7060; U0003-CS

== ENCOUNTER 2020-07-13 14:37 | Inpatient (IN) | payer MEDICARE, MEDICAID ==
[~2020-07-13] VITALS: Ht 165.1 cm; Wt 70.0 kg
[2020-07-13] MEDS ORDERED: MAGNESIUM/ALUMINUM HYDROXIDE/SIMETHICONE 30ML UDC PO STA (15:24)
[2020-07-13 15:50] LABS: HEMATOCRIT. 37.7 % (36.0-48.0); HEMOGLOBIN. 11.9 g/dL (12.0-16.0); MEAN CORPUSCULAR HEMOGLOBIN 26.6 pg (28.0-32.0); MEAN CORPUSCULAR VOLUME 84.6 fL (81.0-99.0); MEAN PLATELET VOLUME 11.8 fl (7.4-10.4); PLATELET 79 x1000/uL (130-400); RED BLOOD CELL COUNT 4.46 mill/uL (4.2-5.4); RED CELL DISTRIBUTION WIDTH 17.4 % (11.6-14.6)
[2020-07-13 15:51] LABS: CHLORIDE 100 mEq/L (98-107)
[2020-07-13 15:56] LABS: PROTHROMBIN TIME 10.9 sec (9.6-11.0)
[2020-07-13 16:26] LABS: PLATELET ESTIMATE DECREASED
[2020-07-13] MEDS ORDERED: SULFAMETHOXAZOLE/TRIMETHOPRIM 800/160MG TABLET PO ONE (17:45)
[2020-07-13] MEDS ORDERED: METRONIDAZOLE 500MG TABLET PO ONE (17:45)
[2020-07-13 18:19] LABS: CLARITY URINE TURBID (CLEAR); COLOR URINE YELLOW (YELLOW); KETONES URINE NEGATIVE (NEGATIVE); LEUKOCYTE ESTERASE URINE 3+ (NEGATIVE); NITRITE URINE NEGATIVE (NEGATIVE); OCCULT BLOOD URINE 2+ (NEGATIVE); PROTEIN URINE 2+ (NEGATIVE); SPECIFIC GRAVITY URINE 1.011 (1.005-1.030); UROBILINOGEN URINE 0.2 E.U./dL (0.2-1.0)
[2020-07-13] MEDS ORDERED: IPRATROPIUM/ALBUTEROL 0.5-3(2.5)MG/3ML NEB NEB PRN (23:00)
[2020-07-13] MEDS ORDERED: ONDANSETRON HCL 4MG/2ML INJ IV PRN (23:00)
[2020-07-13] MEDS ORDERED: SODIUM POLYSTYRENE SULFONATE 15 G/60 ML BOT PO NR (23:00)
[2020-07-13] MEDS ORDERED: ACETAMINOPHEN 325MG TABLET PO PRN (23:00)
[2020-07-13] MEDS ORDERED: CEFTRIAXONE 1 G PREMIX 50 ML IV SCH (23:00)
[2020-07-14 05:28] LABS: BASOPHILS % 0.4 % (0.0-2.0); EOSINOPHILS % 0.9 % (0.0-5.0); HEMATOCRIT. 36.8 % (36.0-48.0); HEMOGLOBIN. 11.7 g/dL (12.0-16.0); MEAN CORPUSCULAR HEMOGLOBIN 27.1 pg (28.0-32.0); MEAN CORPUSCULAR VOLUME 84.9 fL (81.0-99.0); MEAN PLATELET VOLUME 11.3 fl (7.4-10.4); MONOCYTES % 10.5 % (2.0-8.0); NEUTROPHILS % 80.2 % (40.0-76.0); PLATELET 73 x1000/uL (130-400); RED BLOOD CELL COUNT 4.33 mill/uL (4.2-5.4); RED CELL DISTRIBUTION WIDTH 17.4 % (11.6-14.6)
[2020-07-14 05:49] LABS: CREATINE KINASE MB FRACTION 1.2 ng/mL (0.5-3.6)
[2020-07-14] MEDS ORDERED: METRONIDAZOLE 500 MG PREMIX 100 ML IV SCH (06:00)
[2020-07-14] MEDS: CLONIDINE 0.1MG TABLET PO PRN ×2 (06:31→19:01)
[2020-07-14 09:46] LABS: *AMPHETAMINES SCREEN URINE NEGATIVE (NEGATIVE); *BARBITURATES SCREEN URINE NEGATIVE (NEGATIVE); *BENZODIAZEPINES SCREEN URINE NEGATIVE (NEGATIVE); *COCAINE SCREEN URINE NEGATIVE (NEGATIVE)
[2020-07-14 09:47] LABS: CANNABINOID URINE SCREEN NEGATIVE (NEGATIVE); METHADONE URINE SCREEN NEGATIVE (NEGATIVE); OPIATES URINE SCREEN NEGATIVE (NEGATIVE); PHENCYCLIDINE URINE SCREEN NEGATIVE (NEGATIVE)
[2020-07-14 10:45] VITALS: BP 139/82
[2020-07-14] MEDS ORDERED: HEPARIN 5000 UNITS/ML VIAL SUBCUT SCH (14:00)
[2020-07-14 16:35] LABS: CREATINE KINASE MB FRACTION 1.1 ng/mL (0.5-3.6)
[2020-07-14 17:00] VITALS: BP 198/90
[2020-07-14 18:00] VITALS: BP 198/92
[2020-07-14 20:00] VITALS: BP 183/86
[2020-07-14] MEDS: CEFTRIAXONE 1,000 MG in DEXTROSE 5% WATER 50 ML IV SCH (21:00)
[2020-07-15] VITALS (7 sets, daily range): BP systolic 143–178; BP diastolic 63–90
[2020-07-15] MEDS: CLONIDINE 0.1MG TABLET PO PRN ×2 (04:42→21:05)
[2020-07-15 07:24] LABS: BASOPHILS % 0.9 % (0.0-2.0); EOSINOPHILS % 1.8 % (0.0-5.0); HEMATOCRIT. 33.2 % (36.0-48.0); HEMOGLOBIN. 10.7 g/dL (12.0-16.0); LYMPHOCYTES % 9.3 % (20.0-50.0); MEAN CORPUSCULAR VOLUME 83.8 fL (81.0-99.0); MONOCYTES % 9.9 % (2.0-8.0); NEUTROPHILS % 78.1 % (40.0-76.0); PLATELET 75 x1000/uL (130-400); RED BLOOD CELL COUNT 3.96 mill/uL (4.2-5.4); RED CELL DISTRIBUTION WIDTH 17.8 % (11.6-14.6)
[2020-07-15 08:11] LABS: PHOSPHORUS 3.6 mg/dL (2.5-4.9)
[2020-07-15] MEDS: DOCUSATE SODIUM 250MG CAPSULE PO SCH ×2 (09:45→17:00)
[2020-07-15] MEDS ORDERED: NIFE-33 MT (12:58)
[2020-07-15] MEDS ORDERED: AMOX-424 MT (15:08)
[2020-07-15] MEDS: HYDROCODONE/ACETAMINOPHEN 5/325MG TABLET PO PRN ×2 (16:51→21:05)
[2020-07-15] MEDS: METRONIDAZOLE 500 MG PREMIX 100 ML IV SCH ×2 (16:55→18:54)
[2020-07-15] MEDS: CEFTRIAXONE 1,000 MG in DEXTROSE 5% WATER 50 ML IV SCH (20:57)
[2020-07-15] MEDS ORDERED: HALOPERIDOL LACTATE 5MG/ML VIAL IM PRN (23:15)
[2020-07-16] VITALS (9 sets, daily range): BP systolic 110–170; BP diastolic 54–85
[2020-07-16] MEDS: METRONIDAZOLE 500 MG PREMIX 100 ML IV SCH ×2 (05:04→17:07)
[2020-07-16 07:11] LABS: HEMOGLOBIN. 9.6 g/dL (12.0-16.0); MEAN CORPUSCULAR HEMOGLOBIN 27.2 pg (28.0-32.0); MEAN CORPUSCULAR VOLUME 84.5 fL (81.0-99.0); MEAN PLATELET VOLUME 11.7 fl (7.4-10.4); PLATELET 85 x1000/uL (130-400); RED BLOOD CELL COUNT 3.55 mill/uL (4.2-5.4); RED CELL DISTRIBUTION WIDTH 17.1 % (11.6-14.6)
[2020-07-16] MEDS: DOCUSATE SODIUM 250MG CAPSULE PO SCH ×2 (09:00→17:06)
[2020-07-16 13:44] LABS: PLATELET ESTIMATE DECREASED
[2020-07-16] MEDS: HYDROCODONE/ACETAMINOPHEN 5/325MG TABLET PO PRN (17:06)
[2020-07-16] MEDS: CEFTRIAXONE 1,000 MG in DEXTROSE 5% WATER 50 ML IV SCH (20:50)
[2020-07-16] MEDS: CLONIDINE 0.1MG TABLET PO PRN (22:27)
[2020-07-19] MEDS ORDERED: ATOR40TA70 PO (01:15)
[2020-07-19] MEDS ORDERED: OMEP10CA5 PO (01:16)
[2020-07-19] MEDS ORDERED: SEVE800T8 PO (01:16)
[2020-07-19] MEDS ORDERED: INSLIS SUBCUT (01:17)
[2020-07-19] MEDS ORDERED: DULO60CA64 PO (01:18)
[2020-07-19] MEDS ORDERED: DONE10TA11 PO (01:18)
[2020-07-19] MEDS ORDERED: CLOP75TA33 PO (01:19)
[2020-07-19] MEDS ORDERED: CARV6.2548 PO (01:19)
[2020-07-19] MEDS ORDERED: AMIO100T4 PO (01:20)
[2020-07-21] MEDS ORDERED: ASPI-1158 PO (13:48)
[2020-07-21] MEDS ORDERED: AMLO2.5T45 PO (13:50)
== END 2020-07-16 23:04 | DRG 871 ==
LOC: ER 14:37 → MICUSO 21:27 → EDBEDREQ 21:29 → EDBEDREQTM 21:29 → ENRESERV 07-14 08:12 → 5WST 07-14 08:13
PROVIDERS: ADMIT Internal Medicine; ATTEND Internal Medicine
PROC: 5A1D70Z Performance of Urinary Filtration, Intermittent, Less than 6 Hours Per Day (ICD-10-PCS; principal; 2020-07-14)
PROC: 5A1D70Z Performance of Urinary Filtration, Intermittent, Less than 6 Hours Per Day (ICD-10-PCS; 2020-07-15)
DX: A41.9 Sepsis, unspecified organism (principal); N18.6 End stage renal disease; K57.32 Diverticulitis of large intestine without perforation or abscess without bleeding; N39.0 Urinary tract infection, site not specified; I13.2 Hypertensive heart and chronic kidney disease with heart failure and with stage 5 chronic kidney disease, or end stage renal disease; I16.1 Hypertensive emergency; K80.20 Calculus of gallbladder without cholecystitis without obstruction; D69.6 Thrombocytopenia, unspecified; E11.22 Type 2 diabetes mellitus with diabetic chronic kidney disease; E11.65 Type 2 diabetes mellitus with hyperglycemia; E11.51 Type 2 diabetes mellitus with diabetic peripheral angiopathy without gangrene; D50.9 Iron deficiency anemia, unspecified; E87.5 Hyperkalemia; E78.5 Hyperlipidemia, unspecified; F02.80 Dementia in other diseases classified elsewhere, unspecified severity, without behavioral disturbance, psychotic disturbance, mood disturbance, and anxiety; G30.9 Alzheimer's disease, unspecified; I25.10 Atherosclerotic heart disease of native coronary artery without angina pectoris; I50.9 Heart failure, unspecified; M10.9 Gout, unspecified; Z87.11 Personal history of peptic ulcer disease; Z99.2 Dependence on renal dialysis; Z89.519 Acquired absence of unspecified leg below knee; I25.2 Old myocardial infarction; Z79.84 Long term (current) use of oral hypoglycemic drugs
CPT/HCPCS: 36415; 74176; 80048; 80053; 80061; 80305; 81003; 82550; 82553; 83735; 84100; 84443; 84484; 85025; 93005; 99285; J0696; J1630; J2405; J3490; J7060

== ENCOUNTER 2020-07-31 11:22 | Inpatient (IN) | payer MEDICARE, MEDICAID ==
[~2020-07-31] VITALS: Ht 162.6 cm; Wt 69.9 kg
[~2020-07-31 11:22] MED LIST changes: -AMI2 PO; +AMIO100T4 PO; +AMLO2.5T45 PO; -AMLO5TAB88 PO; +ASPI-1158 PO; -ASPI-1497 PO; -CHOL100044 PO; -CITA10TA9 PO; -CLOP75TA33 PO; -COR6 PO; -DILT60TA3 PO; -DOCU-150 PO; +DONE10TA11 PO; -DONE10TA43 PO; +DULO60CA64 PO; -FAMO20TA8 PO; +INSLIS SUBCUT; -IPRA0.2S51 NEB; -LEVO250T58 MT; -MEMA1CAP PO; +OMEP10CA5 PO; -ONDA4TAB5 PO; -TRAM50TA3 PO
[2020-07-31] MEDS ORDERED: ALBUTEROL (0.083%) 2.5MG/3ML NEB HHN STA (12:04)
[2020-07-31] MEDS ORDERED: IPRATROPIUM BROMIDE (0.02%) 0.5MG/2.5ML NEB HHN STA (12:04)
[2020-07-31 12:25] LABS: HEMATOCRIT. 30.9 % (36.0-48.0); HEMOGLOBIN. 9.4 g/dL (12.0-16.0); MEAN CORPUSCULAR HEMOGLOBIN 26.9 pg (28.0-32.0); MEAN CORPUSCULAR VOLUME 88.1 fL (81.0-99.0); MEAN PLATELET VOLUME 11.6 fl (7.4-10.4); PLATELET 142 x1000/uL (130-400); RED BLOOD CELL COUNT 3.51 mill/uL (4.2-5.4); RED CELL DISTRIBUTION WIDTH 19.5 % (11.6-14.6)
[2020-07-31 12:33] LABS: CHLORIDE 109 mEq/L (98-107)
[2020-07-31 12:35] LABS: INR 1.1; PROTHROMBIN TIME 11.3 sec (9.6-11.0)
[2020-07-31] MEDS ORDERED: AZITHROMYCIN 500 MG in DEXT 5% WATER 250 ML IV SCH (12:45)
[2020-07-31] MEDS ORDERED: CEFTRIAXONE 1 G PREMIX 50 ML IV ONE (12:45)
[2020-07-31] MEDS ORDERED: SODIUM CHLORIDE 0.9% 250 ML IV ONE (13:00)
[2020-07-31 13:13] LABS: PLATELET ESTIMATE NORMAL
[2020-07-31] MEDS ORDERED: CLONIDINE 0.1MG TABLET PO PRN (14:45)
[2020-07-31] MEDS ORDERED: ONDANSETRON HCL 4MG/2ML INJ IV PRN (14:45)
[2020-07-31] MEDS ORDERED: DOCUSATE SODIUM 100MG CAPSULE PO PRN (14:45)
[2020-07-31] MEDS ORDERED: MAGNESIUM/ALUMINUM HYDROXIDE/SIMETHICONE 30ML UDC PO PRN (14:45)
[2020-07-31] MEDS ORDERED: GUAIFENESIN 200MG/10ML SUGAR FREE UDC PO PRN (14:45)
[2020-07-31] MEDS ORDERED: ACETAMINOPHEN 325MG TABLET PO PRN (14:45)
[2020-07-31] MEDS ORDERED: PIPERACILLIN/TAZ 3.375G PREMIX 50 ML IV SCH (14:45)
[2020-07-31] MEDS ORDERED: DIPHENHYDRAMINE 50MG/ML VIAL IV PRN (14:45)
[2020-07-31] MEDS ORDERED: LORAZEPAM 0.5MG TABLET PO PRN (14:45)
[2020-07-31] MEDS ORDERED: PIPERACILLIN/TAZOBACTAM 2.25 G in DEXTROSE 5% WATER 50 ML IV SCH (14:55)
[2020-07-31] MEDS ORDERED: ENOXAPARIN 30MG/0.3ML SYR SUBCUT SCH (15:00)
[2020-07-31] MEDS: AMLODIPINE 10MG TABLET PO SCH (23:14)
[2020-08-01] VITALS (7 sets, daily range): BP systolic 120–175; BP diastolic 57–82
[2020-08-01] MEDS: PIPERACILLIN/TAZOBACTAM 2.25 G in DEXTROSE 5% WATER 50 ML IV SCH ×4 (02:25→22:49)
[2020-08-01 07:43] LABS: BASOPHILS % 0.8 % (0.0-2.0); EOSINOPHILS % 1.4 % (0.0-5.0); HEMATOCRIT. 27.2 % (36.0-48.0); HEMOGLOBIN. 8.5 g/dL (12.0-16.0); LYMPHOCYTES % 7.6 % (20.0-50.0); MEAN CORPUSCULAR VOLUME 86.6 fL (81.0-99.0); MEAN PLATELET VOLUME 11.3 fl (7.4-10.4); NEUTROPHILS % 83.2 % (40.0-76.0); PLATELET 109 x1000/uL (130-400); RED BLOOD CELL COUNT 3.14 mill/uL (4.2-5.4); RED CELL DISTRIBUTION WIDTH 19.7 % (11.6-14.6)
[2020-08-01 08:01] LABS: CHLORIDE 106 mEq/L (98-107)
[2020-08-01] MEDS: AMLODIPINE 10MG TABLET PO SCH (09:00)
[2020-08-01] MEDS: ENOXAPARIN 30MG/0.3ML SYR SUBCUT SCH (09:17)
[2020-08-02] VITALS: BP 142/63
[2020-08-02 04:00] VITALS: BP 130/54
[2020-08-02] MEDS: PIPERACILLIN/TAZOBACTAM 2.25 G in DEXTROSE 5% WATER 50 ML IV SCH ×3 (05:48→21:27)
[2020-08-02 06:17] LABS: HEMATOCRIT. 25.4 % (36.0-48.0); HEMOGLOBIN. 8.1 g/dL (12.0-16.0); MEAN CORPUSCULAR HEMOGLOBIN 27.2 pg (28.0-32.0); MEAN CORPUSCULAR VOLUME 85.5 fL (81.0-99.0); MEAN PLATELET VOLUME 11.1 fl (7.4-10.4); PLATELET 121 x1000/uL (130-400); RED BLOOD CELL COUNT 2.97 mill/uL (4.2-5.4); RED CELL DISTRIBUTION WIDTH 19.8 % (11.6-14.6)
[2020-08-02 08:00] VITALS: BP 147/42
[2020-08-02] MEDS: ENOXAPARIN 30MG/0.3ML SYR SUBCUT SCH (09:59)
[2020-08-02] MEDS: AMLODIPINE 10MG TABLET PO SCH (10:00)
[2020-08-02 12:00] VITALS: BP 127/31
[2020-08-02 14:23] LABS: PLATELET ESTIMATE SLIGHTLY DECREASED
[2020-08-02 16:00] VITALS: BP 131/38
[2020-08-02 20:00] VITALS: BP 128/61
[2020-08-03 00:20] VITALS: BP 143/43
[2020-08-03 04:00] VITALS: BP 131/64
[2020-08-03] MEDS: PIPERACILLIN/TAZOBACTAM 2.25 G in DEXTROSE 5% WATER 50 ML IV SCH ×2 (05:18→13:52)
[2020-08-03 05:46] LABS: BASOPHILS % 0.7 % (0.0-2.0); EOSINOPHILS % 2.6 % (0.0-5.0); HEMATOCRIT. 26.6 % (36.0-48.0); HEMOGLOBIN. 8.5 g/dL (12.0-16.0); LYMPHOCYTES % 8.3 % (20.0-50.0); MEAN CORPUSCULAR HEMOGLOBIN 27.3 pg (28.0-32.0); MEAN CORPUSCULAR VOLUME 85.3 fL (81.0-99.0); MEAN PLATELET VOLUME 11.2 fl (7.4-10.4); MONOCYTES % 7.4 % (2.0-8.0); PLATELET 133 x1000/uL (130-400); RED BLOOD CELL COUNT 3.12 mill/uL (4.2-5.4); RED CELL DISTRIBUTION WIDTH 19.6 % (11.6-14.6)
[2020-08-03 08:00] VITALS: BP_SYST 155; BP_SYST 185; BP_DIAS 59
[2020-08-03] MEDS: AMLODIPINE 10MG TABLET PO SCH (08:33)
[2020-08-03] MEDS: ENOXAPARIN 30MG/0.3ML SYR SUBCUT SCH (08:33)
[2020-08-03 11:21] VITALS: BP 155/59
[2020-08-03 12:00] VITALS: BP 109/45
[2020-08-03 15:49] VITALS: BP 104/47
== END 2020-08-03 16:15 | DRG 871 ==
LOC: ER 11:22 → 7WST 19:12 → EDBEDREQ 19:13 → EDBEDREQTM 19:13 → EDBEDREQ 19:14 → ENRESERV 20:45
PROVIDERS: ADMIT Hospitalist; ATTEND Hospitalist
PROC: 5A1D70Z Performance of Urinary Filtration, Intermittent, Less than 6 Hours Per Day (ICD-10-PCS; principal; 2020-08-01)
PROC: 5A1D70Z Performance of Urinary Filtration, Intermittent, Less than 6 Hours Per Day (ICD-10-PCS; 2020-08-03)
DX: A41.9 Sepsis, unspecified organism (principal); I21.4 Non-ST elevation (NSTEMI) myocardial infarction; J96.01 Acute respiratory failure with hypoxia; N18.6 End stage renal disease; J18.9 Pneumonia, unspecified organism; I50.33 Acute on chronic diastolic (congestive) heart failure; I13.2 Hypertensive heart and chronic kidney disease with heart failure and with stage 5 chronic kidney disease, or end stage renal disease; Z20.828 Contact with and (suspected) exposure to other viral communicable diseases; D64.9 Anemia, unspecified; E11.22 Type 2 diabetes mellitus with diabetic chronic kidney disease; E11.51 Type 2 diabetes mellitus with diabetic peripheral angiopathy without gangrene; E78.5 Hyperlipidemia, unspecified; G30.9 Alzheimer's disease, unspecified; F02.80 Dementia in other diseases classified elsewhere, unspecified severity, without behavioral disturbance, psychotic disturbance, mood disturbance, and anxiety; I25.10 Atherosclerotic heart disease of native coronary artery without angina pectoris; M10.9 Gout, unspecified; D69.6 Thrombocytopenia, unspecified; I25.2 Old myocardial infarction; Z89.511 Acquired absence of right leg below knee; Z89.512 Acquired absence of left leg below knee; Z99.2 Dependence on renal dialysis; Z91.041 Radiographic dye allergy status; Z79.82 Long term (current) use of aspirin; Z79.899 Other long term (current) drug therapy; Z79.4 Long term (current) use of insulin; Z87.440 Personal history of urinary (tract) infections; Z87.01 Personal history of pneumonia (recurrent)
CPT/HCPCS: 36415; 71045; 80048; 80053; 82962; 83605; 83880; 84145; 84484; 85025; 87635; 93005; 94640; 99285; J0456; J0696; J1200; J1650; J2543; J7050; J7060

== ENCOUNTER 2020-08-20 09:46 | Inpatient (IN) | payer MEDICARE, MEDICAID ==
[~2020-08-20] VITALS: Ht 160 cm; Wt 45.4 kg
[2020-08-20] MEDS ORDERED: PANTOPRAZOLE SODIUM 40 MG/VIAL IV STA (10:28)
[2020-08-20 11:09] LABS: BASOPHILS % 0.8 % (0.0-2.0); EOSINOPHILS % 2.3 % (0.0-5.0); HEMATOCRIT. 33.3 % (36.0-48.0); HEMOGLOBIN. 10.3 g/dL (12.0-16.0); LYMPHOCYTES % 8.7 % (20.0-50.0); MEAN CORPUSCULAR HEMOGLOBIN 28.3 pg (28.0-32.0); MEAN CORPUSCULAR VOLUME 90.9 fL (81.0-99.0); MEAN PLATELET VOLUME 10.4 fl (7.4-10.4); MONOCYTES % 5.8 % (2.0-8.0); NEUTROPHILS % 82.4 % (40.0-76.0); PLATELET 134 x1000/uL (130-400); RED BLOOD CELL COUNT 3.66 mill/uL (4.2-5.4); RED CELL DISTRIBUTION WIDTH 22.8 % (11.6-14.6)
[2020-08-20 11:15] LABS: CHLORIDE 102 mEq/L (98-107)
[2020-08-20 11:18] LABS: PROTHROMBIN TIME 10.9 sec (9.6-11.0)
[2020-08-20 11:39] LABS: PLATELET ESTIMATE NORMAL
[2020-08-20 16:00] VITALS: BP 143/45
[2020-08-20 16:07] VITALS: BP 145/58
[2020-08-20] MEDS ORDERED: PNEUMOCOCCAL 23-VAL P-SAC VAC 0.5 ML IM ONE (16:30)
[2020-08-20] MEDS ORDERED: INFLUENZA VACCINE 05/PF 0.5 ML VIAL IM ONE (16:30)
[2020-08-20] MEDS ORDERED: ONDANSETRON HCL 4MG/2ML INJ IV PRN (17:00)
[2020-08-20] MEDS ORDERED: DIPHENHYDRAMINE 50MG/ML VIAL IV PRN (17:00)
[2020-08-20] MEDS ORDERED: CLONIDINE 0.1MG TABLET PO PRN (17:00)
[2020-08-20] MEDS ORDERED: ACETAMINOPHEN 325MG TABLET PO PRN (17:00)
[2020-08-20] MEDS: SEVELAMER CARBONATE 800 MG TABLET PO SCH (17:40)
[2020-08-20 20:00] VITALS: BP 131/50
[2020-08-20] MEDS ORDERED: DEXTROSE 50% WATER 50ML SYRINGE IV PRN (20:00)
[2020-08-20] MEDS: INSULIN LISPRO 100 UNITS/ML SUBCUT SCH (21:00)
[2020-08-20] MEDS: BLOOD SUGAR DIAGNOSTIC STRIP TEST SCH (21:00)
[2020-08-21] VITALS: BP_SYST 132; BP_SYST 137; BP_DIAS 37
[2020-08-21] MEDS: SODIUM CHLORIDE 0.9% 1,000 ML IV SCH ×2 (01:11→18:47)
[2020-08-21 04:00] VITALS: BP 149/37
[2020-08-21 06:30] LABS: BASOPHILS % 0.9 % (0.0-2.0); CHLORIDE 105 mEq/L (98-107); EOSINOPHILS % 3.3 % (0.0-5.0); HEMOGLOBIN. 9.1 g/dL (12.0-16.0); LYMPHOCYTES % 13.9 % (20.0-50.0); MEAN CORPUSCULAR HEMOGLOBIN 28.1 pg (28.0-32.0); MEAN CORPUSCULAR VOLUME 89.6 fL (81.0-99.0); MEAN PLATELET VOLUME 10.6 fl (7.4-10.4); MONOCYTES % 7.8 % (2.0-8.0); NEUTROPHILS % 74.1 % (40.0-76.0); PLATELET 131 x1000/uL (130-400); RED BLOOD CELL COUNT 3.24 mill/uL (4.2-5.4); RED CELL DISTRIBUTION WIDTH 22.7 % (11.6-14.6)
[2020-08-21 06:38] LABS: PHOSPHORUS 4.3 mg/dL (2.5-4.9)
[2020-08-21 06:40] LABS: LDL CHOLESTEROL 53 mg/dL (5-100)
[2020-08-21 06:41] LABS: HDL CHOLESTEROL 44 mg/dL (40-59)
[2020-08-21] MEDS: INSULIN LISPRO 100 UNITS/ML SUBCUT SCH ×4 (07:40→20:56)
[2020-08-21] MEDS: BLOOD SUGAR DIAGNOSTIC STRIP TEST SCH ×4 (07:50→20:56)
[2020-08-21 08:00] VITALS: BP 124/49
[2020-08-21] MEDS: FOLIC ACID/VITAMIN B COMP W-C TABLET PO SCH (09:50)
[2020-08-21] MEDS: PANTOPRAZOLE SODIUM 40 MG/VIAL IV SCH (09:50)
[2020-08-21] MEDS: SEVELAMER CARBONATE 800 MG TABLET PO SCH ×3 (09:50→18:47)
[2020-08-21] MEDS ORDERED: METOCLOPRAMIDE HCL 10MG/2ML VIAL IV PRN (11:15)
[2020-08-21 12:00] VITALS: BP 118/56
[2020-08-21 13:00] LABS: HEMATOCRIT 30.1 % (36.0-48.0); HEMOGLOBIN 9.5 g/dL (12.0-16.0)
[2020-08-21 16:00] VITALS: BP 152/57
[2020-08-21 16:25] LABS: HEMOGLOBIN 8.5 g/dL (12.0-16.0)
[2020-08-21] MEDS: SUCRALFATE 1G TABLET PO SCH ×2 (18:47→20:54)
[2020-08-21 20:00] VITALS: BP 139/53
[2020-08-21] MEDS ORDERED: AMIO100T4 PO (20:19)
[2020-08-21] MEDS ORDERED: DEXTL PO (20:19)
[2020-08-21] MEDS ORDERED: ASPI-1158 PO (20:19)
[2020-08-21] MEDS ORDERED: NITR1PAT64 TP (20:19)
[2020-08-21] MEDS ORDERED: CRAN3875 PO (20:19)
[2020-08-21] MEDS ORDERED: DULO60CA44 PO (20:19)
[2020-08-21] MEDS ORDERED: SEVE800T8 PO (20:19)
[2020-08-21] MEDS ORDERED: EPOE200014 IJ (20:19)
[2020-08-21] MEDS ORDERED: CARV12.545 PO (20:19)
[2020-08-21] MEDS ORDERED: ATOR40TA70 PO (20:19)
[2020-08-21] MEDS ORDERED: ACET600C5 PO (20:19)
[2020-08-21] MEDS ORDERED: DONE10TA43 PO (20:19)
[2020-08-21] MEDS ORDERED: METO25TA6 PO (20:19)
[2020-08-21] MEDS ORDERED: CLOP75TA33 PO (20:19)
[2020-08-21] MEDS ORDERED: EPOETIN ALFA 4000UNITS/ML VIAL SUBCUT SCH (21:00)
[2020-08-21 23:40] LABS: HEMATOCRIT 32.6 % (36.0-48.0); HEMOGLOBIN 10.4 g/dL (12.0-16.0)
[2020-08-22] VITALS: BP 145/59
[2020-08-22 04:00] VITALS: BP 156/56
[2020-08-22] MEDS: BLOOD SUGAR DIAGNOSTIC STRIP TEST SCH ×2 (06:10→12:13)
[2020-08-22] MEDS: SUCRALFATE 1G TABLET PO SCH ×4 (06:10→20:11)
[2020-08-22 06:59] LABS: CHLORIDE 101 mEq/L (98-107)
[2020-08-22 07:01] LABS: INR 1.1; PARTIAL THROMBOPLASTIN TIME 29.5 sec (23.4-31.0); PROTHROMBIN TIME 11.8 sec (9.6-11.0)
[2020-08-22 07:13] LABS: BASOPHILS % 0.8 % (0.0-2.0); EOSINOPHILS % 3.3 % (0.0-5.0); HEMATOCRIT. 31.9 % (36.0-48.0); LYMPHOCYTES % 12.5 % (20.0-50.0); MEAN CORPUSCULAR HEMOGLOBIN 27.8 pg (28.0-32.0); MEAN CORPUSCULAR VOLUME 88.3 fL (81.0-99.0); MEAN PLATELET VOLUME 10.2 fl (7.4-10.4); NEUTROPHILS % 73.4 % (40.0-76.0); PLATELET 125 x1000/uL (130-400); RED BLOOD CELL COUNT 3.61 mill/uL (4.2-5.4)
[2020-08-22 08:00] VITALS: BP 141/68
[2020-08-22] MEDS: PANTOPRAZOLE SODIUM 40 MG/VIAL IV SCH (08:58)
[2020-08-22] MEDS: FOLIC ACID/VITAMIN B COMP W-C TABLET PO SCH (08:58)
[2020-08-22] MEDS: SEVELAMER CARBONATE 800 MG TABLET PO SCH ×3 (08:58→17:30)
[2020-08-22 12:00] VITALS: BP 167/74
[2020-08-22] MEDS: INSULIN LISPRO 100 UNITS/ML SUBCUT SCH ×3 (12:12→20:23)
[2020-08-22 16:00] VITALS: BP 132/65
[2020-08-22] MEDS: CARVEDILOL 12.5MG TABLET PO SCH ×2 (17:30→20:10)
[2020-08-22] MEDS: DULOXETINE HCL 60MG DR CAPSULE PO SCH (17:30)
[2020-08-22] MEDS: DONEPEZIL HCL 10MG TABLET PO SCH (17:30)
[2020-08-22] MEDS: SODIUM CHLORIDE 0.9% 1,000 ML IV SCH (17:31)
[2020-08-22] MEDS: AMIODARONE HCL 200 MG TABLET PO SCH (17:31)
[2020-08-22] MEDS: NITROGLYCERIN 0.4MG/HR PATCH TOP SCH (18:33)
[2020-08-22 20:00] VITALS: BP 124/52
[2020-08-22] MEDS ORDERED: ATORVASTATIN CALCIUM 40MG TABLET PO SCH (21:00)
[2020-08-23] VITALS: BP 118/70
[2020-08-23 04:00] VITALS: BP 115/52
[2020-08-23] MEDS: SUCRALFATE 1G TABLET PO SCH ×3 (05:21→17:55)
[2020-08-23 06:18] LABS: BASOPHILS % 0.6 % (0.0-2.0); EOSINOPHILS % 4.6 % (0.0-5.0); HEMATOCRIT. 30.5 % (36.0-48.0); HEMOGLOBIN. 9.6 g/dL (12.0-16.0); LYMPHOCYTES % 18.8 % (20.0-50.0); MEAN CORPUSCULAR HEMOGLOBIN 27.8 pg (28.0-32.0); MEAN CORPUSCULAR VOLUME 88.1 fL (81.0-99.0); MEAN PLATELET VOLUME 10.5 fl (7.4-10.4); MONOCYTES % 10.7 % (2.0-8.0); NEUTROPHILS % 65.3 % (40.0-76.0); PLATELET 119 x1000/uL (130-400); RED BLOOD CELL COUNT 3.46 mill/uL (4.2-5.4); RED CELL DISTRIBUTION WIDTH 21.5 % (11.6-14.6)
[2020-08-23] MEDS: INSULIN LISPRO 100 UNITS/ML SUBCUT SCH ×3 (07:02→17:40)
[2020-08-23 08:00] VITALS: BP 144/60
[2020-08-23] MEDS: FOLIC ACID/VITAMIN B COMP W-C TABLET PO SCH (09:42)
[2020-08-23] MEDS: CARVEDILOL 12.5MG TABLET PO SCH (09:42)
[2020-08-23] MEDS: DULOXETINE HCL 60MG DR CAPSULE PO SCH (09:42)
[2020-08-23] MEDS: DONEPEZIL HCL 10MG TABLET PO SCH (09:43)
[2020-08-23] MEDS: SEVELAMER CARBONATE 800 MG TABLET PO SCH ×3 (09:43→17:55)
[2020-08-23] MEDS: PANTOPRAZOLE SODIUM 40 MG/VIAL IV SCH (09:44)
[2020-08-23] MEDS: AMIODARONE HCL 200 MG TABLET PO SCH (09:44)
[2020-08-23] MEDS: NITROGLYCERIN 0.4MG/HR PATCH TOP SCH (09:45)
[2020-08-23] MEDS ORDERED: BISACODYL 10MG SUPP PR SCH (11:15)
[2020-08-23 12:00] VITALS: BP 157/68
[2020-08-23] MEDS ORDERED: DOCUSATE SODIUM 250MG CAPSULE PO SCH (12:00)
[2020-08-23] MEDS ORDERED: PANT40TA4 MT (15:11)
[2020-08-23 16:00] VITALS: BP 159/69
[2020-08-23 17:07] VITALS: BP 157/68
== END 2020-08-23 20:05 | DRG 368 ==
LOC: ER 10:07 → 8WST 11:45 → EDBEDREQTM 11:47 → EDBEDREQ 11:47 → ENRESERV 12:03
PROVIDERS: ADMIT Internal Medicine; ATTEND Internal Medicine
PROC: 5A1D70Z Performance of Urinary Filtration, Intermittent, Less than 6 Hours Per Day (ICD-10-PCS; principal; 2020-08-21)
DX: K20.91 Esophagitis, unspecified with bleeding (principal); K29.01 Acute gastritis with bleeding; N18.6 End stage renal disease; I13.2 Hypertensive heart and chronic kidney disease with heart failure and with stage 5 chronic kidney disease, or end stage renal disease; I50.30 Unspecified diastolic (congestive) heart failure; J90 Pleural effusion, not elsewhere classified; K92.0 Hematemesis; D50.0 Iron deficiency anemia secondary to blood loss (chronic); E11.22 Type 2 diabetes mellitus with diabetic chronic kidney disease; E78.5 Hyperlipidemia, unspecified; I25.10 Atherosclerotic heart disease of native coronary artery without angina pectoris; M10.9 Gout, unspecified; G30.9 Alzheimer's disease, unspecified; F02.80 Dementia in other diseases classified elsewhere, unspecified severity, without behavioral disturbance, psychotic disturbance, mood disturbance, and anxiety; E11.65 Type 2 diabetes mellitus with hyperglycemia; Z20.828 Contact with and (suspected) exposure to other viral communicable diseases; E11.51 Type 2 diabetes mellitus with diabetic peripheral angiopathy without gangrene; Z89.512 Acquired absence of left leg below knee; Z99.2 Dependence on renal dialysis; I25.2 Old myocardial infarction; Z89.511 Acquired absence of right leg below knee; Z91.041 Radiographic dye allergy status; R56.9 Unspecified convulsions
CPT/HCPCS: 36415; 71045; 80048; 80053; 80061; 82962; 83036; 83735; 84100; 85014; 85018; 85025; 86850; 86900; 87426; 90686; 90732; 93005; 93970; 99285; C9113; J0885; J2405; J7030

== ENCOUNTER 2020-10-06 19:22 | Emergency (ER) | payer MEDICARE, MEDICAID ==
[~2020-10-06] VITALS: Ht 152.4 cm; Wt 43.0 kg
[~2020-10-06 19:22] MED LIST changes: +ACET600C5 PO; -AMLO2.5T45 PO; +CARV12.545 PO; +CLOP75TA33 PO; +CRAN3875 PO; +DEXTL PO; -DONE10TA11 PO; +DONE10TA43 PO; +DULO60CA44 PO; -DULO60CA64 PO; -INSLIS SUBCUT; +METO25TA6 PO; -OMEP10CA5 PO; +PANT40TA4 MT
[2020-10-06 22:19] LABS: BASOPHILS % 0.6 % (0.0-2.0); EOSINOPHILS % 3.3 % (0.0-5.0); HEMATOCRIT. 37.1 % (36.0-48.0); HEMOGLOBIN. 11.3 g/dL (12.0-16.0); LYMPHOCYTES % 8.2 % (20.0-50.0); MEAN CORPUSCULAR HEMOGLOBIN 24.4 pg (28.0-32.0); MEAN CORPUSCULAR VOLUME 80.5 fL (81.0-99.0); MONOCYTES % 5.9 % (2.0-8.0); RED BLOOD CELL COUNT 4.61 mill/uL (4.2-5.4); RED CELL DISTRIBUTION WIDTH 18.5 % (11.6-14.6)
[2020-10-06 22:25] LABS: PARTIAL THROMBOPLASTIN TIME 25.7 sec (23.4-31.0); PROTHROMBIN TIME 10.8 sec (9.6-11.0)
[2020-10-06] MEDS ORDERED: TRAMADOL 50MG TABLET PO ONE (22:30)
[2020-10-06 22:40] LABS: MEAN PLATELET VOLUME 12.7 fl (7.4-10.4); PLATELET 105 x1000/uL (130-400)
[2020-10-06 22:41] LABS: PLATELET ESTIMATE DECREASED
[2020-10-07 01:42] VITALS: BP 160/61
== END 2020-10-07 02:07 ==
LOC: ER 19:22
DX: T82.838A Hemorrhage due to vascular prosthetic devices, implants and grafts, initial encounter (principal); Y84.1 Kidney dialysis as the cause of abnormal reaction of the patient, or of later complication, without mention of misadventure at the time of the procedure; Y92.9 Unspecified place or not applicable; I12.0 Hypertensive chronic kidney disease with stage 5 chronic kidney disease or end stage renal disease; E11.22 Type 2 diabetes mellitus with diabetic chronic kidney disease; N18.6 End stage renal disease; Z99.2 Dependence on renal dialysis; N17.9 Acute kidney failure, unspecified; F03.90 Unspecified dementia, unspecified severity, without behavioral disturbance, psychotic disturbance, mood disturbance, and anxiety; Z79.82 Long term (current) use of aspirin; Z86.711 Personal history of pulmonary embolism; Z86.718 Personal history of other venous thrombosis and embolism; Z91.041 Radiographic dye allergy status
CPT/HCPCS: 36415; 80048; 85025; 86850; 86900; 93005; 99285

== ENCOUNTER 2021-08-27 09:40 | Inpatient (IN) | payer MEDICARE, MEDICAID ==
[2021-08-27] VITALS (18 sets, daily range): BP systolic 81–131; BP diastolic 20–69
[~2021-08-27] VITALS: Ht 162.6 cm; Wt 48.1 kg
[~2021-08-27 09:40] MED LIST changes: -ASPI-1158 PO; +ASPI-1406 PO; -PANT40TA4 MT; +PANT40TA51 MT
[2021-08-27] MEDS ORDERED: CALCIUM GLUCONATE 100MG/ML 10ML VIAL IV ONE (09:45)
[2021-08-27] MEDS ORDERED: ATROPINE SULFATE 1MG/10ML SYR ONE (09:55)
[2021-08-27] MEDS ORDERED: CALCIUM CHLORIDE 1GM/10ML SYR IV ONE (09:59)
[2021-08-27] MEDS ORDERED: ONDANSETRON HCL 4MG/2ML INJ IV ONE (10:00)
[2021-08-27 10:15] LABS: HEMATOCRIT. 28.2 % (36.0-48.0); HEMOGLOBIN. 8.6 g/dL (12.0-16.0); MEAN CORPUSCULAR HEMOGLOBIN 23.5 pg (28.0-32.0); MEAN CORPUSCULAR VOLUME 77.5 fL (81.0-99.0); MEAN PLATELET VOLUME 9.8 fl (7.4-10.4); PLATELET 150 x1000/uL (130-400); RED BLOOD CELL COUNT 3.64 mill/uL (4.2-5.4); RED CELL DISTRIBUTION WIDTH 21.1 % (11.6-14.6)
[2021-08-27] MEDS ORDERED: ATROPINE SULFATE 1MG/10ML SYR IV ONE ×2 (10:15)
[2021-08-27] MEDS ORDERED: NOREPINEPHRINE 8MG/250ML PMX 250 ML IV ONE (10:15)
[2021-08-27 10:24] LABS: CHLORIDE 114 mEq/L (98-107)
[2021-08-27 11:09] LABS: PLATELET ESTIMATE NORMAL
[2021-08-27] MEDS ORDERED: EPINEPHRINE 5 MG in SODIUM CHLORIDE 0.9% 245 ML IV PRN ×3 (11:45→23:00)
[2021-08-27] MEDS ORDERED: SODIUM CHLORIDE 0.9% 100 ML IV ONE (14:15)
[2021-08-27] MEDS ORDERED: ACETAMINOPHEN 325MG TABLET PO PRN (15:15)
[2021-08-27] MEDS ORDERED: ACETAMINOPHEN 650MG/20.3ML UDC PO NR (15:30)
[2021-08-27] MEDS: PIPERACILLIN/TAZ 3.375G PREMIX 50 ML IV SCH ×2 (15:32→17:41)
[2021-08-27] MEDS ORDERED: DOPAMINE 400MG/250ML PREMIX 250 ML IV PRN (16:15)
[2021-08-27] MEDS: ONDANSETRON HCL 4MG/2ML INJ IV PRN (16:51)
[2021-08-27] MEDS: DOPAMINE 400MG/250ML PREMIX 250 ML IV SCH ×2 (17:57→18:00)
[2021-08-27] MEDS ORDERED: PIPERACILLIN/TAZOBACTAM 3.375 G in DEXTROSE 5% WATER 50 ML IV SCH (22:00)
[2021-08-27 22:24] LABS: CHLORIDE 100 mEq/L (98-107)
[2021-08-27 23:20] LABS: HEPATITIS B SURFACE ANTIGEN NEGATIVE
[2021-08-27] MEDS: PIPERACILLIN/TAZOBACTAM 3.375 G in DEXTROSE 5% WATER 50 ML IV SCH (23:54)
[2021-08-28] VITALS (78 sets, daily range): BP systolic 76–163; BP diastolic 30–110
[2021-08-28] MEDS ORDERED: EPOETIN ALFA-EPBX 10,000 UNIT/ML VIAL SUBCUT SCH
[2021-08-28] MEDS ORDERED: NOREPINEPHRINE 8MG/250ML PMX 250 ML IV PRN (00:45)
[2021-08-28] MEDS ORDERED: NOREPINEPHRINE 8 MG in DEXTROSE 5% WATER 250 ML IV PRN (01:00)
[2021-08-28] MEDS: EPINEPHRINE 10 MG in SODIUM CHLORIDE 0.9% 240 ML IV PRN (01:17)
[2021-08-28] MEDS: DOPAMINE 800MG PREMIX (DOUBLE) 250 ML IV PRN (01:18)
[2021-08-28] MEDS: ONDANSETRON HCL 4MG/2ML INJ IV PRN ×3 (01:41→14:25)
[2021-08-28 06:51] LABS: HEMATOCRIT. 34.6 % (36.0-48.0); HEMOGLOBIN. 10.3 g/dL (12.0-16.0); MEAN CORPUSCULAR HEMOGLOBIN 22.6 pg (28.0-32.0); MEAN CORPUSCULAR VOLUME 76.1 fL (81.0-99.0); MEAN PLATELET VOLUME 10.1 fl (7.4-10.4); PLATELET 251 x1000/uL (130-400); RED BLOOD CELL COUNT 4.54 mill/uL (4.2-5.4); RED CELL DISTRIBUTION WIDTH 20.8 % (11.6-14.6)
[2021-08-28 06:53] LABS: CHLORIDE 98 mEq/L (98-107)
[2021-08-28 07:02] LABS: LDL CHOLESTEROL 34 mg/dL (5-100)
[2021-08-28 07:03] LABS: HDL CHOLESTEROL 50 mg/dL (40-59); TOTAL IRON BINDING CAPACITY 246 ug/dL (250-450)
[2021-08-28 07:06] LABS: T4 FREE 1.07 ng/dL (0.76-1.46)
[2021-08-28] MEDS: SEVELAMER CARBONATE 800 MG TABLET PO SCH ×3 (08:12→18:11)
[2021-08-28] MEDS: FERROUS SULFATE 325MG TABLET PO SCH ×2 (08:12→18:11)
[2021-08-28] MEDS: FOLIC ACID/VITAMIN B COMP W-C TABLET PO SCH (08:13)
[2021-08-28] MEDS: PIPERACILLIN/TAZOBACTAM 3.375 G in DEXTROSE 5% WATER 50 ML IV SCH ×2 (11:22→20:07)
[2021-08-28] MEDS ORDERED: LIDOCAINE HCL 1% 30ML VIAL (10MG/ML) ONE (11:26)
[2021-08-28 14:41] LABS: PLATELET ESTIMATE NORMAL
[2021-08-28] MEDS: DOXYCYCLINE HYCLATE 100MG CAPSULE PO SCH (17:00)
[2021-08-28] MEDS ORDERED: NA PHOS,M-B/NA PHOS,DI-BA ENEMA 118ML PR NR (18:00)
[2021-08-28] MEDS: LORAZEPAM 2MG/ML CPJ IV PRN (20:08)
[2021-08-29] VITALS (86 sets, daily range): BP systolic 48–184; BP diastolic 16–117
[2021-08-29] MEDS: DOPAMINE 800MG PREMIX (DOUBLE) 250 ML IV PRN (03:25)
[2021-08-29] MEDS: SEVELAMER CARBONATE 800 MG TABLET PO SCH ×3 (09:18→17:46)
[2021-08-29] MEDS: FOLIC ACID/VITAMIN B COMP W-C TABLET PO SCH (09:18)
[2021-08-29] MEDS: PIPERACILLIN/TAZOBACTAM 3.375 G in DEXTROSE 5% WATER 50 ML IV SCH ×2 (09:19→21:08)
[2021-08-29] MEDS: DOXYCYCLINE HYCLATE 100MG CAPSULE PO SCH ×2 (09:19→17:46)
[2021-08-29] MEDS: FERROUS SULFATE 325MG TABLET PO SCH ×2 (09:23→17:46)
[2021-08-29] MEDS: LORAZEPAM 2MG/ML CPJ IV PRN (21:58)
[2021-08-30] VITALS (63 sets, daily range): BP systolic 64–201; BP diastolic 24–114
[2021-08-30 07:28] LABS: HEMATOCRIT. 32.2 % (36.0-48.0); HEMOGLOBIN. 9.7 g/dL (12.0-16.0); MEAN CORPUSCULAR HEMOGLOBIN 22.6 pg (28.0-32.0); MEAN CORPUSCULAR VOLUME 74.9 fL (81.0-99.0); MEAN PLATELET VOLUME 10.3 fl (7.4-10.4); PLATELET 166 x1000/uL (130-400); RED CELL DISTRIBUTION WIDTH 21.3 % (11.6-14.6)
[2021-08-30] MEDS: FERROUS SULFATE 325MG TABLET PO SCH ×2 (08:41→17:53)
[2021-08-30] MEDS: SEVELAMER CARBONATE 800 MG TABLET PO SCH ×3 (08:41→17:59)
[2021-08-30] MEDS: PIPERACILLIN/TAZOBACTAM 3.375 G in DEXTROSE 5% WATER 50 ML IV SCH ×2 (08:41→21:24)
[2021-08-30] MEDS: DOXYCYCLINE HYCLATE 100MG CAPSULE PO SCH ×2 (08:41→17:59)
[2021-08-30] MEDS: FOLIC ACID/VITAMIN B COMP W-C TABLET PO SCH (08:41)
[2021-08-30] MEDS: ONDANSETRON HCL 4MG/2ML INJ IV PRN ×2 (09:57→18:34)
[2021-08-30] MEDS: DOPAMINE 800MG PREMIX (DOUBLE) 250 ML IV PRN (10:39)
[2021-08-30 12:25] LABS: PHOSPHORUS 6.7 mg/dL (2.5-4.9)
[2021-08-30] MEDS: EPINEPHRINE 10 MG in SODIUM CHLORIDE 0.9% 240 ML IV PRN (12:52)
[2021-08-30 13:43] LABS: PLATELET ESTIMATE NORMAL
[2021-08-30] MEDS ORDERED: ATROPINE SULFATE 1MG/10ML SYR IV SCH ×2 (14:15→14:25)
[2021-08-30 14:33] LABS: AMYLASE 289 IU/L (25-115)
[2021-08-30] MEDS: DOCUSATE SODIUM 100MG CAPSULE PO SCH (17:53)
[2021-08-31] VITALS (75 sets, daily range): BP systolic 49–178; BP diastolic 21–127
[2021-08-31 05:53] LABS: HEMATOCRIT. 32.7 % (36.0-48.0); MEAN PLATELET VOLUME 9.8 fl (7.4-10.4); PLATELET 168 x1000/uL (130-400); RED BLOOD CELL COUNT 4.36 mill/uL (4.2-5.4)
[2021-08-31] MEDS: PIPERACILLIN/TAZOBACTAM 3.375 G in DEXTROSE 5% WATER 50 ML IV SCH ×2 (08:33→21:12)
[2021-08-31] MEDS: SEVELAMER CARBONATE 800 MG TABLET PO SCH ×3 (08:33→17:37)
[2021-08-31] MEDS: DOCUSATE SODIUM 100MG CAPSULE PO SCH ×2 (08:34→17:00)
[2021-08-31] MEDS: FERROUS SULFATE 325MG TABLET PO SCH ×2 (08:34→17:36)
[2021-08-31] MEDS: DOPAMINE 800MG PREMIX (DOUBLE) 250 ML IV PRN (08:34)
[2021-08-31] MEDS: FOLIC ACID/VITAMIN B COMP W-C TABLET PO SCH (08:34)
[2021-08-31] MEDS: DOXYCYCLINE HYCLATE 100MG CAPSULE PO SCH ×2 (08:34→17:36)
[2021-08-31 10:38] LABS: PLATELET ESTIMATE NORMAL
[2021-08-31] MEDS: LORAZEPAM 2MG/ML CPJ IV PRN ×2 (10:50→19:05)
[2021-09-01] VITALS (71 sets, daily range): BP systolic 42–190; BP diastolic 20–94
[2021-09-01 06:31] LABS: HEMATOCRIT. 34.9 % (36.0-48.0); HEMOGLOBIN. 10.5 g/dL (12.0-16.0); MEAN CORPUSCULAR VOLUME 76.6 fL (81.0-99.0); MEAN PLATELET VOLUME 9.8 fl (7.4-10.4); PLATELET 176 x1000/uL (130-400); RED BLOOD CELL COUNT 4.55 mill/uL (4.2-5.4); RED CELL DISTRIBUTION WIDTH 21.2 % (11.6-14.6)
[2021-09-01] MEDS: DOCUSATE SODIUM 100MG CAPSULE PO SCH ×2 (08:41→17:00)
[2021-09-01] MEDS: DOXYCYCLINE HYCLATE 100MG CAPSULE PO SCH ×2 (08:49→17:49)
[2021-09-01] MEDS: SEVELAMER CARBONATE 800 MG TABLET PO SCH ×3 (08:49→17:49)
[2021-09-01] MEDS: FOLIC ACID/VITAMIN B COMP W-C TABLET PO SCH (08:49)
[2021-09-01] MEDS: FERROUS SULFATE 325MG TABLET PO SCH ×2 (08:49→17:49)
[2021-09-01] MEDS: PIPERACILLIN/TAZOBACTAM 3.375 G in DEXTROSE 5% WATER 50 ML IV SCH ×2 (08:50→20:48)
[2021-09-01 14:00] LABS: PLATELET ESTIMATE NORMAL
[2021-09-01] MEDS: ONDANSETRON HCL 4MG/2ML INJ IV PRN (14:15)
[2021-09-02] VITALS (25 sets, daily range): BP systolic 95–167; BP diastolic 26–76
[2021-09-02] MEDS: DOCUSATE SODIUM 100MG CAPSULE PO SCH ×2 (08:22→17:22)
[2021-09-02] MEDS: FERROUS SULFATE 325MG TABLET PO SCH ×2 (08:22→17:23)
[2021-09-02] MEDS: SEVELAMER CARBONATE 800 MG TABLET PO SCH ×3 (08:22→17:23)
[2021-09-02] MEDS: DOXYCYCLINE HYCLATE 100MG CAPSULE PO SCH ×2 (08:22→17:23)
[2021-09-02] MEDS: FOLIC ACID/VITAMIN B COMP W-C TABLET PO SCH (08:22)
[2021-09-02] MEDS: LORAZEPAM 2MG/ML CPJ IV PRN (12:03)
[2021-09-03] VITALS (12 sets, daily range): BP systolic 120–200; BP diastolic 30–133
[2021-09-03 08:06] LABS: HEMATOCRIT. 32.1 % (36.0-48.0); HEMOGLOBIN. 9.6 g/dL (12.0-16.0); MEAN CORPUSCULAR HEMOGLOBIN 22.8 pg (28.0-32.0); MEAN CORPUSCULAR VOLUME 76.5 fL (81.0-99.0); MEAN PLATELET VOLUME 10.4 fl (7.4-10.4); PLATELET 193 x1000/uL (130-400); RED CELL DISTRIBUTION WIDTH 21.9 % (11.6-14.6)
[2021-09-03] MEDS: DOCUSATE SODIUM 100MG CAPSULE PO SCH ×2 (09:01→17:27)
[2021-09-03] MEDS: FERROUS SULFATE 325MG TABLET PO SCH ×2 (09:01→17:27)
[2021-09-03] MEDS: DOXYCYCLINE HYCLATE 100MG CAPSULE PO SCH ×2 (09:01→17:27)
[2021-09-03] MEDS: SEVELAMER CARBONATE 800 MG TABLET PO SCH ×3 (09:01→17:27)
[2021-09-03] MEDS: FOLIC ACID/VITAMIN B COMP W-C TABLET PO SCH (09:01)
[2021-09-03 10:49] LABS: NUCLEATED RED BLOOD CELLS 1 /100 WBC; PLATELET ESTIMATE NORMAL
[2021-09-03] MEDS ORDERED: CLONIDINE 0.1MG TABLET PO PRN (13:30)
[2021-09-03] MEDS ORDERED: HYDRALAZINE HCL 100MG TABLET PO SCH (14:30)
[2021-09-03] MEDS: NIFEDIPINE XL 60MG TAB PO SCH (14:32)
[2021-09-03] MEDS ORDERED: MEROPENEM 500 MG in SODIUM CHLORIDE 0.9% 50 ML IV SCH (19:30)
[2021-09-03] MEDS ORDERED: SENNOSIDES/DOCUSATE SOD 8.6/50MG TABLET PO SCH (21:00)
[2021-09-03] MEDS: HYDRALAZINE HCL 100MG TABLET PO SCH (22:26)
[2021-09-04] VITALS (11 sets, daily range): BP systolic 109–144; BP diastolic 42–60
[2021-09-04 01:19] LABS: FOLIC ACID (FOLATE) SERUM 17.8 ng/mL (>5.38)
[2021-09-04] MEDS: HYDRALAZINE HCL 100MG TABLET PO SCH ×2 (05:32→14:00)
[2021-09-04] MEDS: DOXYCYCLINE HYCLATE 100MG CAPSULE PO SCH ×2 (08:01→16:51)
[2021-09-04] MEDS: FOLIC ACID/VITAMIN B COMP W-C TABLET PO SCH (08:01)
[2021-09-04] MEDS: FERROUS SULFATE 325MG TABLET PO SCH ×2 (08:01→16:51)
[2021-09-04] MEDS: SEVELAMER CARBONATE 800 MG TABLET PO SCH ×3 (08:01→16:51)
[2021-09-04] MEDS: DOCUSATE SODIUM 100MG CAPSULE PO SCH ×2 (08:01→16:51)
[2021-09-04] MEDS: NIFEDIPINE XL 60MG TAB PO SCH (09:00)
== END 2021-09-04 19:36 | DRG 193 ==
LOC: ER 09:53 → 3WST 10:35 → EDBEDREQSVC 15:28 → ENRESERV 15:56 → CVICU 19:14 → 5EST 09-02 10:35
PROVIDERS: ADMIT Internal Medicine; ATTEND Internal Medicine
PROC: 5A1D70Z Performance of Urinary Filtration, Intermittent, Less than 6 Hours Per Day (ICD-10-PCS; 2021-08-28)
PROC: 05H533Z Insertion of Infusion Device into Right Subclavian Vein, Percutaneous Approach (ICD-10-PCS; principal; 2021-08-29)
PROC: B546ZZA Ultrasonography of Right Subclavian Vein, Guidance (ICD-10-PCS; 2021-08-29)
PROC: 5A1D70Z Performance of Urinary Filtration, Intermittent, Less than 6 Hours Per Day (ICD-10-PCS; 2021-08-30)
PROC: 5A1D70Z Performance of Urinary Filtration, Intermittent, Less than 6 Hours Per Day (ICD-10-PCS; 2021-09-01)
PROC: 5A1D70Z Performance of Urinary Filtration, Intermittent, Less than 6 Hours Per Day (ICD-10-PCS; 2021-09-03)
DX: J18.9 Pneumonia, unspecified organism (principal); E43 Unspecified severe protein-calorie malnutrition; N18.6 End stage renal disease; K85.90 Acute pancreatitis without necrosis or infection, unspecified; I12.0 Hypertensive chronic kidney disease with stage 5 chronic kidney disease or end stage renal disease; R57.9 Shock, unspecified; Z68.1 Body mass index [BMI] 19.9 or less, adult; D63.1 Anemia in chronic kidney disease; E11.22 Type 2 diabetes mellitus with diabetic chronic kidney disease; E11.51 Type 2 diabetes mellitus with diabetic peripheral angiopathy without gangrene; E78.5 Hyperlipidemia, unspecified; E83.52 Hypercalcemia; E87.8 Other disorders of electrolyte and fluid balance, not elsewhere classified; F02.80 Dementia in other diseases classified elsewhere, unspecified severity, without behavioral disturbance, psychotic disturbance, mood disturbance, and anxiety; G30.9 Alzheimer's disease, unspecified; I25.10 Atherosclerotic heart disease of native coronary artery without angina pectoris; I34.0 Nonrheumatic mitral (valve) insufficiency; M10.9 Gout, unspecified; K31.89 Other diseases of stomach and duodenum; D50.9 Iron deficiency anemia, unspecified; E87.5 Hyperkalemia; K80.20 Calculus of gallbladder without cholecystitis without obstruction; K76.0 Fatty (change of) liver, not elsewhere classified; Z79.899 Other long term (current) drug therapy; I25.2 Old myocardial infarction; Z89.511 Acquired absence of right leg below knee; Z89.512 Acquired absence of left leg below knee; Z89.611 Acquired absence of right leg above knee; Z89.612 Acquired absence of left leg above knee; Z99.2 Dependence on renal dialysis; Z79.82 Long term (current) use of aspirin; Z79.4 Long term (current) use of insulin; Z79.02 Long term (current) use of antithrombotics/antiplatelets
CPT/HCPCS: 36415; 71045; 74018; 76700; 76937; 78227; 80048; 80053; 80061; 80076; 80162; 82150; 82607; 82728; 82746; 82962; 83036; 83540; 83550; 83735; 83880; 84100; 84145; 84439; 84443; 84481; 84484; 85025; 85044; 86705; 86709; 86803; 87340; 93005; 93306; 99291; A9537; C1725; C1769; J0461; J0610; J0885; J1265; J2060; J2185; J2405; J2543; J3490; J7040; J7050; J7060

== ENCOUNTER 2021-09-13 13:01 | Inpatient (IN) | payer MEDICARE, BC, MEDICAID ==
[~2021-09-13] VITALS: Ht 147.3 cm; Wt 55.5 kg
[2021-09-13] MEDS ORDERED: SODIUM CHLORIDE 0.9% 500 ML IV ONE (14:00)
[2021-09-13 14:15] LABS: HEMATOCRIT. 29.5 % (36.0-48.0); HEMOGLOBIN. 8.8 g/dL (12.0-16.0); MEAN CORPUSCULAR HEMOGLOBIN 23.2 pg (28.0-32.0); MEAN CORPUSCULAR VOLUME 78.1 fL (81.0-99.0); MEAN PLATELET VOLUME 11.3 fl (7.4-10.4); PLATELET 166 x1000/uL (130-400); RED BLOOD CELL COUNT 3.78 mill/uL (4.2-5.4); RED CELL DISTRIBUTION WIDTH 22.4 % (11.6-14.6)
[2021-09-13 14:21] LABS: CHLORIDE 104 mEq/L (98-107)
[2021-09-13 15:52] LABS: PLATELET ESTIMATE NORMAL
[2021-09-13] MEDS ORDERED: ASPIRIN 81MG TABLET PO ONE (16:15)
[2021-09-13] MEDS ORDERED: PIPERACILLIN/TAZ 3.375G PREMIX 50 ML IV ONE (16:15)
[2021-09-13 17:10] LABS: INR 1.1; PROTHROMBIN TIME 11.9 sec (9.6-11.0)
[2021-09-13 18:00] VITALS: BP 144/50
[2021-09-13] MEDS ORDERED: CLONIDINE 0.1MG TABLET PO PRN (19:15)
[2021-09-13] MEDS ORDERED: MAGNESIUM/ALUMINUM HYDROXIDE/SIMETHICONE 30ML UDC PO PRN (19:15)
[2021-09-13] MEDS ORDERED: MORPHINE SULFATE 2 MG/ML CPJ (NOT FOR IM USE) IV PRN (19:15)
[2021-09-13] MEDS ORDERED: IPRATROPIUM/ALBUTEROL 0.5-3(2.5)MG/3ML NEB HHN PRN (19:15)
[2021-09-13] MEDS ORDERED: DEXTROSE 50% WATER 50ML SYRINGE IV PRN ×2 (19:30)
[2021-09-13 20:00] VITALS: BP 106/61
[2021-09-13 20:07] LABS: TOTAL IRON BINDING CAPACITY 209 ug/dL (250-450)
[2021-09-13] MEDS ORDERED: LEVOFLOXACIN 500MG PREMIX 100 ML IV NR (21:00)
[2021-09-13] MEDS: INSULIN LISPRO 100 UNITS/ML SUBCUT SCH (21:00)
[2021-09-13] MEDS: EPOETIN ALFA-EPBX 4,000 UNIT/ML VIAL SUBCUT SCH (21:00)
[2021-09-13] MEDS: METRONIDAZOLE 500 MG PREMIX 100 ML IV SCH (21:43)
[2021-09-13] MEDS: BLOOD SUGAR DIAGNOSTIC STRIP TEST SCH (21:44)
[2021-09-13] MEDS ORDERED: METRONIDAZOLE 500MG/100ML PREMIX IV SCH (22:00)
[2021-09-14] VITALS (7 sets, daily range): BP systolic 99–181; BP diastolic 40–68
[2021-09-14 00:21] LABS: HEPATITIS B SURFACE ANTIGEN NEGATIVE
[2021-09-14 06:49] LABS: HEMATOCRIT. 28.5 % (36.0-48.0); HEMOGLOBIN. 8.8 g/dL (12.0-16.0); MEAN CORPUSCULAR HEMOGLOBIN 23.8 pg (28.0-32.0); MEAN CORPUSCULAR VOLUME 77.3 fL (81.0-99.0); MEAN PLATELET VOLUME 10.7 fl (7.4-10.4); PLATELET 170 x1000/uL (130-400); RED BLOOD CELL COUNT 3.69 mill/uL (4.2-5.4); RED CELL DISTRIBUTION WIDTH 22.4 % (11.6-14.6)
[2021-09-14] MEDS: BLOOD SUGAR DIAGNOSTIC STRIP TEST SCH ×4 (07:34→21:16)
[2021-09-14] MEDS: INSULIN LISPRO 100 UNITS/ML SUBCUT SCH ×4 (07:34→21:00)
[2021-09-14 07:39] LABS: PHOSPHORUS 2.7 mg/dL (2.5-4.9); T4 FREE 1.15 ng/dL (0.76-1.46)
[2021-09-14 07:55] LABS: FOLIC ACID (FOLATE) SERUM 19.1 ng/mL (>5.38)
[2021-09-14] MEDS ORDERED: CARVEDILOL 12.5MG TABLET PO SCH (09:00)
[2021-09-14] MEDS ORDERED: DONEPEZIL HCL 10MG TABLET PO SCH (09:00)
[2021-09-14] MEDS: PANTOPRAZOLE SODIUM 40 MG/VIAL IV SCH (09:18)
[2021-09-14] MEDS: ASPIRIN 81MG EC TABLET PO SCH (09:19)
[2021-09-14] MEDS: CLOPIDOGREL 75MG TABLET PO SCH (09:19)
[2021-09-14] MEDS: DULOXETINE HCL 60MG DR CAPSULE PO SCH (09:19)
[2021-09-14] MEDS: SEVELAMER CARBONATE 800 MG TABLET PO SCH ×3 (09:19→17:00)
[2021-09-14] MEDS: ATORVASTATIN CALCIUM 40MG TABLET PO SCH (09:20)
[2021-09-14] MEDS ORDERED: NALOXONE HCL 0.4MG/ML VIAL IV PRN (10:00)
[2021-09-14] MEDS: METRONIDAZOLE 500 MG PREMIX 100 ML IV SCH ×2 (10:25→21:00)
[2021-09-14] MEDS ORDERED: LEVOFLOXACIN 500MG TABLET PO SCH (11:00)
[2021-09-14] MEDS: ONDANSETRON HCL 4MG/2ML INJ IV PRN (11:56)
[2021-09-14] MEDS: HYDRALAZINE HCL 25MG TABLET PO SCH ×2 (14:30→22:00)
[2021-09-14] MEDS ORDERED: ATROPINE SULFATE 1MG/ML VIAL IV NR ×2 (17:15→17:45)
[2021-09-14 19:15] LABS: PLATELET ESTIMATE NORMAL
[2021-09-14] MEDS: DOPAMINE 400MG/250ML PREMIX 250 ML IV SCH (20:00)
[2021-09-15] VITALS (12 sets, daily range): BP systolic 110–149; BP diastolic 26–84
[2021-09-15] MEDS: HYDRALAZINE HCL 25MG TABLET PO SCH ×3 (05:55→22:00)
[2021-09-15] MEDS: BLOOD SUGAR DIAGNOSTIC STRIP TEST SCH ×4 (05:55→21:11)
[2021-09-15 07:18] LABS: HEMATOCRIT. 29.6 % (36.0-48.0); HEMOGLOBIN. 8.9 g/dL (12.0-16.0); MEAN CORPUSCULAR VOLUME 79.8 fL (81.0-99.0); PLATELET 191 x1000/uL (130-400); RED CELL DISTRIBUTION WIDTH 22.8 % (11.6-14.6)
[2021-09-15] MEDS: INSULIN LISPRO 100 UNITS/ML SUBCUT SCH ×4 (07:20→21:00)
[2021-09-15] MEDS ORDERED: METOPROLOL TARTRATE 25MG TABLET PO SCH (09:00)
[2021-09-15] MEDS: SEVELAMER CARBONATE 800 MG TABLET PO SCH ×3 (09:36→17:01)
[2021-09-15] MEDS: ASPIRIN 81MG EC TABLET PO SCH (09:36)
[2021-09-15] MEDS: ATORVASTATIN CALCIUM 40MG TABLET PO SCH (09:38)
[2021-09-15] MEDS: DOCUSATE SODIUM 100MG CAPSULE PO PRN ×2 (09:38→17:00)
[2021-09-15] MEDS: CLOPIDOGREL 75MG TABLET PO SCH (09:38)
[2021-09-15] MEDS: MEMANTINE HCL 5MG TABLET PO SCH (09:38)
[2021-09-15] MEDS ORDERED: LIDOCAINE HCL 1% 30ML VIAL (10MG/ML) ONE (09:58)
[2021-09-15] MEDS ORDERED: LEVOFLOXACIN 250MG PREMIX 50 ML IV SCH (11:00)
[2021-09-15] MEDS: METRONIDAZOLE 500 MG PREMIX 100 ML IV SCH ×2 (11:15→21:11)
[2021-09-15] MEDS: PANTOPRAZOLE SODIUM 40 MG/VIAL IV SCH (11:21)
[2021-09-15] MEDS: DULOXETINE HCL 60MG DR CAPSULE PO SCH (13:18)
[2021-09-15] MEDS: FOLIC ACID/VITAMIN B COMP W-C TABLET PO SCH (13:19)
[2021-09-15 15:35] LABS: PLATELET ESTIMATE NORMAL
[2021-09-15] MEDS: ONDANSETRON HCL 4MG/2ML INJ IV PRN (15:35)
[2021-09-15] MEDS: DOPAMINE 400MG/250ML PREMIX 250 ML IV SCH (16:52)
[2021-09-15] MEDS: EPOETIN ALFA-EPBX 4,000 UNIT/ML VIAL SUBCUT SCH (21:50)
[2021-09-16] VITALS (11 sets, daily range): BP systolic 107–156; BP diastolic 40–74
[2021-09-16] MEDS: HYDRALAZINE HCL 25MG TABLET PO SCH ×4 (05:29→22:53)
[2021-09-16] MEDS: INSULIN LISPRO 100 UNITS/ML SUBCUT SCH ×4 (06:30→22:55)
[2021-09-16] MEDS: BLOOD SUGAR DIAGNOSTIC STRIP TEST SCH ×4 (06:30→21:00)
[2021-09-16] MEDS: ONDANSETRON HCL 4MG/2ML INJ IV PRN (07:38)
[2021-09-16] MEDS: METRONIDAZOLE 500 MG PREMIX 100 ML IV SCH (08:14)
[2021-09-16] MEDS: PANTOPRAZOLE SODIUM 40 MG/VIAL IV SCH (08:18)
[2021-09-16] MEDS: ASPIRIN 81MG EC TABLET PO SCH ×3 (09:00→10:08)
[2021-09-16] MEDS: DOCUSATE SODIUM 100MG CAPSULE PO PRN (10:02)
[2021-09-16] MEDS: ATORVASTATIN CALCIUM 40MG TABLET PO SCH ×3 (10:02→10:29)
[2021-09-16] MEDS: CLOPIDOGREL 75MG TABLET PO SCH ×2 (10:02→10:09)
[2021-09-16] MEDS: DULOXETINE HCL 60MG DR CAPSULE PO SCH ×3 (10:03→10:29)
[2021-09-16] MEDS: SEVELAMER CARBONATE 800 MG TABLET PO SCH ×3 (10:03→16:20)
[2021-09-16] MEDS: FOLIC ACID/VITAMIN B COMP W-C TABLET PO SCH ×2 (10:03→10:11)
[2021-09-16] MEDS: MEMANTINE HCL 5MG TABLET PO SCH ×3 (10:03→10:28)
[2021-09-16] MEDS ORDERED: ONDANSETRON HCL 4MG/2ML INJ IV NR (12:15)
[2021-09-16] MEDS: DEXT 5%/0.9% NACL 1,000 ML IV SCH (12:19)
[2021-09-16] MEDS: DOPAMINE 400MG/250ML PREMIX 250 ML IV SCH (13:04)
[2021-09-16] MEDS: PIPERACILLIN/TAZOBACTAM 3.375 G in DEXTROSE 5% WATER 50 ML IV SCH ×2 (16:21→22:54)
[2021-09-16] MEDS: EPOETIN ALFA-EPBX 4,000 UNIT/ML VIAL SUBCUT SCH (22:54)
[2021-09-17] VITALS (12 sets, daily range): BP systolic 120–159; BP diastolic 25–58
[2021-09-17] MEDS: HYDRALAZINE HCL 25MG TABLET PO SCH ×4 (06:00→22:00)
[2021-09-17] MEDS: BLOOD SUGAR DIAGNOSTIC STRIP TEST SCH ×4 (06:31→20:34)
[2021-09-17] MEDS: INSULIN LISPRO 100 UNITS/ML SUBCUT SCH ×4 (07:20→21:00)
[2021-09-17 07:31] LABS: HEMATOCRIT. 30.4 % (36.0-48.0); HEMOGLOBIN. 9.1 g/dL (12.0-16.0); MEAN CORPUSCULAR HEMOGLOBIN 23.4 pg (28.0-32.0); MEAN CORPUSCULAR VOLUME 77.9 fL (81.0-99.0); MEAN PLATELET VOLUME 9.5 fl (7.4-10.4); PLATELET 190 x1000/uL (130-400); RED BLOOD CELL COUNT 3.91 mill/uL (4.2-5.4); RED CELL DISTRIBUTION WIDTH 22.7 % (11.6-14.6)
[2021-09-17] MEDS: SEVELAMER CARBONATE 800 MG TABLET PO SCH ×3 (09:00→17:00)
[2021-09-17] MEDS: ASPIRIN 81MG EC TABLET PO SCH (09:00)
[2021-09-17] MEDS: FAMOTIDINE 20MG/2ML VIAL IV SCH (09:13)
[2021-09-17] MEDS: PIPERACILLIN/TAZOBACTAM 3.375 G in DEXTROSE 5% WATER 50 ML IV SCH ×2 (09:13→20:35)
[2021-09-17] MEDS: DEXT 5%/0.9% NACL 1,000 ML IV SCH ×2 (09:14→19:46)
[2021-09-17] MEDS: ONDANSETRON HCL 4MG/2ML INJ IV PRN ×2 (09:18→17:22)
[2021-09-17] MEDS: DOPAMINE 400MG/250ML PREMIX 250 ML IV SCH (09:33)
[2021-09-17] MEDS: POLYETHYLENE GLYCOL 3350 (17GM) 1 DOSE PACK PO SCH (12:19)
[2021-09-17] MEDS: DOCUSATE SODIUM 100MG CAPSULE PO SCH (17:00)
[2021-09-17] MEDS: EPOETIN ALFA-EPBX 4,000 UNIT/ML VIAL SUBCUT SCH (23:08)
[2021-09-18] VITALS (13 sets, daily range): BP systolic 111–189; BP diastolic 29–81
[2021-09-18 05:34] LABS: NUCLEATED RED BLOOD CELLS 6 /100 WBC; PLATELET ESTIMATE NORMAL
[2021-09-18] MEDS: HYDRALAZINE HCL 25MG TABLET PO SCH ×3 (06:04→20:41)
[2021-09-18] MEDS: BLOOD SUGAR DIAGNOSTIC STRIP TEST SCH ×4 (06:04→20:34)
[2021-09-18 06:35] LABS: BASOPHILS % 0.6 % (0.0-2.0); EOSINOPHILS % 2.2 % (0.0-5.0); HEMATOCRIT. 30.9 % (36.0-48.0); HEMOGLOBIN. 9.3 g/dL (12.0-16.0); LYMPHOCYTES % 4.8 % (20.0-50.0); MEAN CORPUSCULAR HEMOGLOBIN 23.7 pg (28.0-32.0); MEAN CORPUSCULAR VOLUME 78.2 fL (81.0-99.0); MEAN PLATELET VOLUME 9.1 fl (7.4-10.4); MONOCYTES % 5.1 % (2.0-8.0); NEUTROPHILS % 87.3 % (40.0-76.0); PLATELET 188 x1000/uL (130-400); RED BLOOD CELL COUNT 3.95 mill/uL (4.2-5.4); RED CELL DISTRIBUTION WIDTH 22.9 % (11.6-14.6)
[2021-09-18] MEDS: DOPAMINE 400MG/250ML PREMIX 250 ML IV SCH (06:41)
[2021-09-18] MEDS: ASPIRIN 81MG EC TABLET PO SCH (08:38)
[2021-09-18] MEDS: DOCUSATE SODIUM 100MG CAPSULE PO SCH ×2 (08:38→17:26)
[2021-09-18] MEDS: POLYETHYLENE GLYCOL 3350 (17GM) 1 DOSE PACK PO SCH (08:38)
[2021-09-18] MEDS: SEVELAMER CARBONATE 800 MG TABLET PO SCH ×3 (08:38→17:26)
[2021-09-18] MEDS: FOLIC ACID/VITAMIN B COMP W-C TABLET PO SCH (08:38)
[2021-09-18] MEDS: CLOPIDOGREL 75MG TABLET PO SCH (08:38)
[2021-09-18] MEDS: ATORVASTATIN CALCIUM 40MG TABLET PO SCH (08:38)
[2021-09-18] MEDS: MEMANTINE HCL 5MG TABLET PO SCH (08:38)
[2021-09-18] MEDS: DULOXETINE HCL 60MG DR CAPSULE PO SCH (08:39)
[2021-09-18] MEDS: INSULIN LISPRO 100 UNITS/ML SUBCUT SCH ×4 (08:39→20:45)
[2021-09-18] MEDS: FAMOTIDINE 20MG/2ML VIAL IV SCH (08:39)
[2021-09-18] MEDS: ONDANSETRON HCL 4MG/2ML INJ IV PRN (08:39)
[2021-09-18] MEDS: PIPERACILLIN/TAZOBACTAM 3.375 G in DEXTROSE 5% WATER 50 ML IV SCH ×2 (08:41→20:33)
[2021-09-18] MEDS ORDERED: BISACODYL 10MG SUPP PR PRN (12:15)
[2021-09-18] MEDS: DEXT 5%/0.9% NACL 1,000 ML IV SCH (14:35)
[2021-09-18] MEDS: METOCLOPRAMIDE HCL 10MG/2ML VIAL IV SCH (17:27)
[2021-09-19] VITALS (11 sets, daily range): BP systolic 101–172; BP diastolic 42–88
[2021-09-19] MEDS: METOCLOPRAMIDE HCL 10MG/2ML VIAL IV SCH ×4 (01:11→17:30)
[2021-09-19] MEDS: DOPAMINE 400MG/250ML PREMIX 250 ML IV SCH (04:31)
[2021-09-19] MEDS: HYDRALAZINE HCL 25MG TABLET PO SCH ×3 (06:44→21:41)
[2021-09-19] MEDS: INSULIN LISPRO 100 UNITS/ML SUBCUT SCH ×4 (06:45→20:27)
[2021-09-19] MEDS: BLOOD SUGAR DIAGNOSTIC STRIP TEST SCH ×4 (06:45→20:18)
[2021-09-19 07:04] LABS: HEMATOCRIT. 36.3 % (36.0-48.0); HEMOGLOBIN. 10.8 g/dL (12.0-16.0); MEAN CORPUSCULAR HEMOGLOBIN 23.7 pg (28.0-32.0); MEAN CORPUSCULAR VOLUME 80.1 fL (81.0-99.0); MEAN PLATELET VOLUME 9.9 fl (7.4-10.4); PLATELET 176 x1000/uL (130-400); RED BLOOD CELL COUNT 4.53 mill/uL (4.2-5.4)
[2021-09-19] MEDS: PIPERACILLIN/TAZOBACTAM 3.375 G in DEXTROSE 5% WATER 50 ML IV SCH ×2 (09:42→20:18)
[2021-09-19] MEDS: SEVELAMER CARBONATE 800 MG TABLET PO SCH ×3 (09:43→17:30)
[2021-09-19] MEDS: DULOXETINE HCL 60MG DR CAPSULE PO SCH (09:43)
[2021-09-19] MEDS: DOCUSATE SODIUM 100MG CAPSULE PO SCH ×2 (09:43→17:30)
[2021-09-19] MEDS: ASPIRIN 81MG EC TABLET PO SCH (09:43)
[2021-09-19] MEDS: MEMANTINE HCL 5MG TABLET PO SCH (09:43)
[2021-09-19] MEDS: FOLIC ACID/VITAMIN B COMP W-C TABLET PO SCH (09:43)
[2021-09-19] MEDS: ATORVASTATIN CALCIUM 40MG TABLET PO SCH (09:43)
[2021-09-19] MEDS: FAMOTIDINE 20MG/2ML VIAL IV SCH (09:44)
[2021-09-19] MEDS: CLOPIDOGREL 75MG TABLET PO SCH (09:44)
[2021-09-19] MEDS: ONDANSETRON HCL 4MG/2ML INJ IV PRN (10:40)
[2021-09-19] MEDS: POLYETHYLENE GLYCOL 3350 (17GM) 1 DOSE PACK PO SCH (10:40)
[2021-09-19 12:23] LABS: NUCLEATED RED BLOOD CELLS 6 /100 WBC; PLATELET ESTIMATE NORMAL
[2021-09-19] MEDS: DEXT 5%/0.9% NACL 1,000 ML IV SCH (12:46)
[2021-09-20] VITALS (11 sets, daily range): BP systolic 115–166; BP diastolic 34–90
[2021-09-20] MEDS: METOCLOPRAMIDE HCL 10MG/2ML VIAL IV SCH ×4 (00:12→18:16)
[2021-09-20] MEDS: DOPAMINE 400MG/250ML PREMIX 250 ML IV SCH (01:17)
[2021-09-20] MEDS: HYDRALAZINE HCL 25MG TABLET PO SCH ×3 (05:44→22:00)
[2021-09-20] MEDS: BLOOD SUGAR DIAGNOSTIC STRIP TEST SCH ×4 (06:07→21:00)
[2021-09-20] MEDS: INSULIN LISPRO 100 UNITS/ML SUBCUT SCH ×4 (07:20→21:00)
[2021-09-20] MEDS: DEXT 5%/0.9% NACL 1,000 ML IV SCH (07:40)
[2021-09-20 07:51] LABS: HEMATOCRIT. 33.3 % (36.0-48.0); HEMOGLOBIN. 9.8 g/dL (12.0-16.0); MEAN CORPUSCULAR VOLUME 81.5 fL (81.0-99.0); MEAN PLATELET VOLUME 9.3 fl (7.4-10.4); PLATELET 132 x1000/uL (130-400); RED BLOOD CELL COUNT 4.09 mill/uL (4.2-5.4); RED CELL DISTRIBUTION WIDTH 23.8 % (11.6-14.6)
[2021-09-20] MEDS: DULOXETINE HCL 60MG DR CAPSULE PO SCH (08:43)
[2021-09-20] MEDS: ATORVASTATIN CALCIUM 40MG TABLET PO SCH (08:43)
[2021-09-20] MEDS: FAMOTIDINE 20MG/2ML VIAL IV SCH (08:43)
[2021-09-20] MEDS: PIPERACILLIN/TAZOBACTAM 3.375 G in DEXTROSE 5% WATER 50 ML IV SCH ×2 (08:43→22:12)
[2021-09-20] MEDS: SEVELAMER CARBONATE 800 MG TABLET PO SCH ×3 (08:43→18:16)
[2021-09-20] MEDS: POLYETHYLENE GLYCOL 3350 (17GM) 1 DOSE PACK PO SCH ×3 (08:44→09:02)
[2021-09-20] MEDS: ASPIRIN 81MG EC TABLET PO SCH (08:44)
[2021-09-20] MEDS: FOLIC ACID/VITAMIN B COMP W-C TABLET PO SCH (08:44)
[2021-09-20] MEDS: DOCUSATE SODIUM 100MG CAPSULE PO SCH ×2 (08:44→18:16)
[2021-09-20] MEDS: CLOPIDOGREL 75MG TABLET PO SCH (08:44)
[2021-09-20] MEDS: MEMANTINE HCL 5MG TABLET PO SCH (08:44)
[2021-09-20 13:42] LABS: NUCLEATED RED BLOOD CELLS 2 /100 WBC
[2021-09-20 13:43] LABS: PLATELET ESTIMATE NORMAL
[2021-09-20] MEDS: EPOETIN ALFA-EPBX 4,000 UNIT/ML VIAL SUBCUT SCH (22:12)
[2021-09-21] VITALS (11 sets, daily range): BP systolic 107–161; BP diastolic 32–94
[2021-09-21] MEDS: DEXT 5%/0.9% NACL 1,000 ML IV SCH (01:00)
[2021-09-21] MEDS: METOCLOPRAMIDE HCL 10MG/2ML VIAL IV SCH ×4 (01:00→17:46)
[2021-09-21] MEDS: HYDRALAZINE HCL 25MG TABLET PO SCH ×2 (05:46→13:19)
[2021-09-21] MEDS: BLOOD SUGAR DIAGNOSTIC STRIP TEST SCH ×3 (05:46→17:35)
[2021-09-21 06:35] LABS: HEMATOCRIT. 30.1 % (36.0-48.0); HEMOGLOBIN. 9.2 g/dL (12.0-16.0); MEAN CORPUSCULAR VOLUME 79.1 fL (81.0-99.0); MEAN PLATELET VOLUME 9.4 fl (7.4-10.4); PLATELET 119 x1000/uL (130-400); RED BLOOD CELL COUNT 3.81 mill/uL (4.2-5.4); RED CELL DISTRIBUTION WIDTH 23.6 % (11.6-14.6)
[2021-09-21] MEDS: INSULIN LISPRO 100 UNITS/ML SUBCUT SCH ×3 (07:20→17:47)
[2021-09-21] MEDS ORDERED: MEMA5TAB7 PO (08:41)
[2021-09-21] MEDS: FOLIC ACID/VITAMIN B COMP W-C TABLET PO SCH (08:44)
[2021-09-21] MEDS: POLYETHYLENE GLYCOL 3350 (17GM) 1 DOSE PACK PO SCH (08:44)
[2021-09-21] MEDS: FAMOTIDINE 20MG/2ML VIAL IV SCH (08:44)
[2021-09-21] MEDS: PIPERACILLIN/TAZOBACTAM 3.375 G in DEXTROSE 5% WATER 50 ML IV SCH (08:44)
[2021-09-21] MEDS: ATORVASTATIN CALCIUM 40MG TABLET PO SCH (08:44)
[2021-09-21] MEDS: CLOPIDOGREL 75MG TABLET PO SCH (08:47)
[2021-09-21] MEDS: DOCUSATE SODIUM 100MG CAPSULE PO SCH ×2 (08:47→17:46)
[2021-09-21] MEDS: MEMANTINE HCL 5MG TABLET PO SCH (08:47)
[2021-09-21] MEDS: ASPIRIN 81MG EC TABLET PO SCH (08:47)
[2021-09-21] MEDS: SEVELAMER CARBONATE 800 MG TABLET PO SCH ×3 (08:47→17:46)
[2021-09-21] MEDS: DULOXETINE HCL 60MG DR CAPSULE PO SCH (08:48)
[2021-09-21 19:44] LABS: NUCLEATED RED BLOOD CELLS 1 /100 WBC; PLATELET ESTIMATE DECREASED
== END 2021-09-21 19:54 | DRG 391 ==
LOC: ER 13:01 → EDBEDREQSVC 15:49 → EDBEDREQ 15:49 → ENRESERV 16:06 → 6WST 17:52 → 3WST 09-14 18:17
PROVIDERS: ADMIT Internal Medicine; ATTEND Internal Medicine
PROC: 5A1D70Z Performance of Urinary Filtration, Intermittent, Less than 6 Hours Per Day (ICD-10-PCS; 2021-09-14)
PROC: 05HY33Z Insertion of Infusion Device into Upper Vein, Percutaneous Approach (ICD-10-PCS; principal; 2021-09-15)
PROC: B54MZZA Ultrasonography of Right Upper Extremity Veins, Guidance (ICD-10-PCS; 2021-09-15)
PROC: 5A1D70Z Performance of Urinary Filtration, Intermittent, Less than 6 Hours Per Day (ICD-10-PCS; 2021-09-16)
PROC: 5A1D70Z Performance of Urinary Filtration, Intermittent, Less than 6 Hours Per Day (ICD-10-PCS; 2021-09-17)
PROC: 5A1D70Z Performance of Urinary Filtration, Intermittent, Less than 6 Hours Per Day (ICD-10-PCS; 2021-09-20)
DX: K57.32 Diverticulitis of large intestine without perforation or abscess without bleeding (principal); N18.6 End stage renal disease; E43 Unspecified severe protein-calorie malnutrition; I13.2 Hypertensive heart and chronic kidney disease with heart failure and with stage 5 chronic kidney disease, or end stage renal disease; I50.30 Unspecified diastolic (congestive) heart failure; K80.20 Calculus of gallbladder without cholecystitis without obstruction; D50.9 Iron deficiency anemia, unspecified; E11.22 Type 2 diabetes mellitus with diabetic chronic kidney disease; E78.5 Hyperlipidemia, unspecified; F02.80 Dementia in other diseases classified elsewhere, unspecified severity, without behavioral disturbance, psychotic disturbance, mood disturbance, and anxiety; K76.0 Fatty (change of) liver, not elsewhere classified; D63.1 Anemia in chronic kidney disease; G30.9 Alzheimer's disease, unspecified; I25.10 Atherosclerotic heart disease of native coronary artery without angina pectoris; R00.1 Bradycardia, unspecified; E11.51 Type 2 diabetes mellitus with diabetic peripheral angiopathy without gangrene; L89.156 Pressure-induced deep tissue damage of sacral region; K64.4 Residual hemorrhoidal skin tags; I25.2 Old myocardial infarction; Z89.611 Acquired absence of right leg above knee; Z89.612 Acquired absence of left leg above knee; Z99.2 Dependence on renal dialysis; Z91.041 Radiographic dye allergy status; Z79.899 Other long term (current) drug therapy; Z79.82 Long term (current) use of aspirin; Z68.25 Body mass index [BMI] 25.0-25.9, adult
CPT/HCPCS: 36415; 36573; 71045; 74018; 74176; 76700; 80048; 80053; 80061; 80076; 82040; 82150; 82270; 82607; 82728; 82746; 82962; 83036; 83540; 83550; 83605; 83735; 83880; 84100; 84134; 84439; 84443; 84484; 84550; 85025; 86705; 86709; 86803; 87340; 93005; 93970; 97162; 97166; 99285; A6261; C1725; C1769; C1892; C1893; C9113; J0461; J0885; J1265; J1815; J1956; J2405; J2543; J2765; J3490; J7040; J7042; J7060; A4315

== ENCOUNTER 2022-01-20 12:47 | Inpatient (IN) | payer MEDICARE, MEDICAID ==
[~2022-01-20] VITALS: Ht 162.6 cm; Wt 40.0 kg
[~2022-01-20 12:47] MED LIST changes: -AMIO100T4 PO; -CARV12.545 PO; -DONE10TA43 PO; +MEMA5TAB7 PO; -METO25TA6 PO
[2022-01-20 14:23] LABS: HEMATOCRIT. 37.1 % (36.0-48.0); HEMOGLOBIN. 11.8 g/dL (12.0-16.0); MEAN CORPUSCULAR HEMOGLOBIN 26.2 pg (28.0-32.0); MEAN CORPUSCULAR VOLUME 82.3 fL (81.0-99.0); MEAN PLATELET VOLUME 10.1 fl (7.4-10.4); PLATELET 144 x1000/uL (130-400); RED CELL DISTRIBUTION WIDTH 21.6 % (11.6-14.6)
[2022-01-20 14:30] LABS: CHLORIDE 104 mEq/L (98-107)
[2022-01-20 14:55] LABS: PLATELET ESTIMATE NORMAL
[2022-01-20] MEDS ORDERED: NALOXONE HCL 0.4MG/ML VIAL IV PRN (18:15)
[2022-01-20] MEDS ORDERED: MORPHINE SULFATE 2 MG/ML CPJ (NOT FOR IM USE) IV PRN (18:15)
[2022-01-20 21:55] LABS: HEPATITIS B SURFACE ANTIGEN NEGATIVE
[2022-01-21] MEDS ORDERED: ACETAMINOPHEN 325MG TABLET PO PRN (06:15)
[2022-01-21] MEDS ORDERED: GUAIFENESIN 200MG/10ML SUGAR FREE UDC PO PRN (06:15)
[2022-01-21] MEDS ORDERED: DIPHENHYDRAMINE 50MG/ML VIAL IV PRN (06:15)
[2022-01-21] MEDS ORDERED: MAGNESIUM/ALUMINUM HYDROXIDE/SIMETHICONE 30ML UDC PO PRN (06:15)
[2022-01-21] MEDS ORDERED: CLONIDINE 0.1MG TABLET PO PRN (06:15)
[2022-01-21] MEDS ORDERED: DOCUSATE SODIUM 100MG CAPSULE PO PRN (06:15)
[2022-01-21] MEDS ORDERED: ONDANSETRON HCL 4MG/2ML INJ IV PRN (06:15)
[2022-01-21] MEDS ORDERED: LIDOCAINE HCL 1% 30ML VIAL (10MG/ML) ONE (07:44)
[2022-01-21] MEDS ORDERED: HEPARIN SODIUM,PORCINE/PF 500 UNIT/5 ML SYRINGE ONE (07:44)
[2022-01-21 09:30] VITALS: BP 137/70
[2022-01-21 10:00] VITALS: BP 136/74
[2022-01-21] MEDS: PANTOPRAZOLE 40MG DR TABLET PO SCH (10:45)
[2022-01-21] MEDS: AMLODIPINE 10MG TABLET PO SCH (10:45)
[2022-01-21] MEDS: MEMANTINE HCL 5MG TABLET PO SCH (10:45)
[2022-01-21] MEDS: ATORVASTATIN CALCIUM 40MG TABLET PO SCH (10:46)
[2022-01-21] MEDS: SEVELAMER CARBONATE 800 MG TABLET PO SCH ×3 (10:46→18:15)
[2022-01-21] MEDS: DULOXETINE HCL 60MG DR CAPSULE PO SCH (10:46)
[2022-01-21] MEDS: ENOXAPARIN 30MG/0.3ML SYR SUBCUT SCH (10:47)
[2022-01-21 16:00] VITALS: BP 130/70
[2022-01-21] MEDS ORDERED: DEXTROSE 50% WATER 50ML SYRINGE IV PRN (19:30)
[2022-01-21 20:00] VITALS: BP 133/63
[2022-01-21] MEDS: INSULIN LISPRO 100 UNITS/ML SUBCUT SCH (21:00)
[2022-01-21] MEDS: BLOOD SUGAR DIAGNOSTIC STRIP TEST SCH (21:38)
[2022-01-22] VITALS: BP 120/62
[2022-01-22 04:00] VITALS: BP 126/65
[2022-01-22] MEDS: BLOOD SUGAR DIAGNOSTIC STRIP TEST SCH ×4 (07:20→21:35)
[2022-01-22] MEDS: INSULIN LISPRO 100 UNITS/ML SUBCUT SCH ×4 (07:50→21:00)
[2022-01-22 08:00] VITALS: BP 125/60
[2022-01-22 08:44] LABS: HEMATOCRIT. 31.2 % (36.0-48.0); MEAN CORPUSCULAR HEMOGLOBIN 25.9 pg (28.0-32.0); MEAN CORPUSCULAR VOLUME 81.2 fL (81.0-99.0); MEAN PLATELET VOLUME 10.2 fl (7.4-10.4); PLATELET 124 x1000/uL (130-400); RED BLOOD CELL COUNT 3.84 mill/uL (4.2-5.4); RED CELL DISTRIBUTION WIDTH 20.7 % (11.6-14.6)
[2022-01-22] MEDS: FOLIC ACID/VITAMIN B COMP W-C TABLET PO SCH (10:11)
[2022-01-22] MEDS: AMLODIPINE 10MG TABLET PO SCH (10:11)
[2022-01-22] MEDS: SEVELAMER CARBONATE 800 MG TABLET PO SCH ×3 (10:11→18:56)
[2022-01-22] MEDS: DULOXETINE HCL 60MG DR CAPSULE PO SCH (10:12)
[2022-01-22] MEDS: ATORVASTATIN CALCIUM 40MG TABLET PO SCH (10:12)
[2022-01-22] MEDS: MEMANTINE HCL 5MG TABLET PO SCH (10:12)
[2022-01-22] MEDS: ENOXAPARIN 30MG/0.3ML SYR SUBCUT SCH (10:13)
[2022-01-22] MEDS: PANTOPRAZOLE 40MG DR TABLET PO SCH (10:14)
[2022-01-22 11:14] LABS: PLATELET ESTIMATE SLIGHTLY DECREASED
[2022-01-22 12:00] VITALS: BP 133/68
[2022-01-22] MEDS: HYDROCODONE/ACETAMINOPHEN 5/325MG TABLET PO PRN (19:41)
[2022-01-22 20:00] VITALS: BP 124/53
[2022-01-23] VITALS: BP 115/55
[2022-01-23 03:33] VITALS: BP 122/51
[2022-01-23] MEDS: BLOOD SUGAR DIAGNOSTIC STRIP TEST SCH ×4 (06:26→20:45)
[2022-01-23] MEDS: INSULIN LISPRO 100 UNITS/ML SUBCUT SCH ×4 (07:41→20:45)
[2022-01-23 08:00] VITALS: BP 136/67
[2022-01-23 08:15] LABS: HEMOGLOBIN. 9.8 g/dL (12.0-16.0); MEAN CORPUSCULAR VOLUME 82.4 fL (81.0-99.0); MEAN PLATELET VOLUME 10.5 fl (7.4-10.4); PLATELET 124 x1000/uL (130-400); RED BLOOD CELL COUNT 3.75 mill/uL (4.2-5.4); RED CELL DISTRIBUTION WIDTH 20.6 % (11.6-14.6)
[2022-01-23 08:57] LABS: PLATELET ESTIMATE NORMAL
[2022-01-23] MEDS: DULOXETINE HCL 60MG DR CAPSULE PO SCH (09:27)
[2022-01-23] MEDS: AMLODIPINE 10MG TABLET PO SCH (09:27)
[2022-01-23] MEDS: SEVELAMER CARBONATE 800 MG TABLET PO SCH ×3 (09:27→18:57)
[2022-01-23] MEDS: ATORVASTATIN CALCIUM 40MG TABLET PO SCH (09:27)
[2022-01-23] MEDS: MEMANTINE HCL 5MG TABLET PO SCH (09:27)
[2022-01-23] MEDS: PANTOPRAZOLE 40MG DR TABLET PO SCH (09:27)
[2022-01-23] MEDS: ENOXAPARIN 30MG/0.3ML SYR SUBCUT SCH (09:27)
[2022-01-23] MEDS: FOLIC ACID/VITAMIN B COMP W-C TABLET PO SCH (13:41)
[2022-01-23 16:00] VITALS: BP 123/60
[2022-01-23 20:00] VITALS: BP 122/54
[2022-01-24] VITALS: BP 113/61
[2022-01-24 04:00] VITALS: BP 132/66
[2022-01-24] MEDS: BLOOD SUGAR DIAGNOSTIC STRIP TEST SCH ×4 (06:38→21:32)
[2022-01-24] MEDS: INSULIN LISPRO 100 UNITS/ML SUBCUT SCH ×4 (07:50→21:00)
[2022-01-24 08:00] VITALS: BP 122/57
[2022-01-24] MEDS: ATORVASTATIN CALCIUM 40MG TABLET PO SCH (09:19)
[2022-01-24] MEDS: AMLODIPINE 10MG TABLET PO SCH (09:20)
[2022-01-24] MEDS: SEVELAMER CARBONATE 800 MG TABLET PO SCH ×3 (09:20→17:04)
[2022-01-24] MEDS: MEMANTINE HCL 5MG TABLET PO SCH (09:20)
[2022-01-24] MEDS: PANTOPRAZOLE 40MG DR TABLET PO SCH (09:20)
[2022-01-24] MEDS: FOLIC ACID/VITAMIN B COMP W-C TABLET PO SCH (09:20)
[2022-01-24] MEDS: DULOXETINE HCL 60MG DR CAPSULE PO SCH (09:20)
[2022-01-24] MEDS: HYDROCODONE/ACETAMINOPHEN 5/325MG TABLET PO PRN ×2 (09:21→13:14)
[2022-01-24] MEDS: ENOXAPARIN 30MG/0.3ML SYR SUBCUT SCH (09:22)
[2022-01-24 12:00] VITALS: BP 113/76
[2022-01-24 16:00] VITALS: BP 112/49
[2022-01-24 20:00] VITALS: BP 119/68
[2022-01-25] VITALS: BP 121/70
[2022-01-25 04:00] VITALS: BP 122/68
[2022-01-25] MEDS: BLOOD SUGAR DIAGNOSTIC STRIP TEST SCH ×4 (07:20→21:05)
[2022-01-25 07:50] VITALS: BP 125/65
[2022-01-25] MEDS: INSULIN LISPRO 100 UNITS/ML SUBCUT SCH ×4 (07:50→21:00)
[2022-01-25] MEDS: SEVELAMER CARBONATE 800 MG TABLET PO SCH ×3 (07:50→17:50)
[2022-01-25] MEDS ORDERED: THROMBIN (BOVINE) 5000 UNITS/VIAL TOP ONE ×2 (08:05→08:06)
[2022-01-25] MEDS ORDERED: BACITRACIN 15GM TUBE TOP ONE (08:05)
[2022-01-25] MEDS ORDERED: BUPIVACAINE HCL/PF 0.5% (5MG/ML) 30ML ONE (08:05)
[2022-01-25] MEDS ORDERED: HEPARIN SODIUM 1,000 UNIT/1ML VIAL IV ONE (08:06)
[2022-01-25] MEDS ORDERED: POLYMYXIN B SULFATE 500000 UNITS/VIAL ONE (08:06)
[2022-01-25] MEDS: DULOXETINE HCL 60MG DR CAPSULE PO SCH (09:00)
[2022-01-25] MEDS: ENOXAPARIN 30MG/0.3ML SYR SUBCUT SCH (09:00)
[2022-01-25] MEDS: PANTOPRAZOLE 40MG DR TABLET PO SCH (09:00)
[2022-01-25] MEDS: ATORVASTATIN CALCIUM 40MG TABLET PO SCH (09:00)
[2022-01-25] MEDS: FOLIC ACID/VITAMIN B COMP W-C TABLET PO SCH (09:00)
[2022-01-25] MEDS: MEMANTINE HCL 5MG TABLET PO SCH (09:00)
[2022-01-25] MEDS: AMLODIPINE 10MG TABLET PO SCH (09:00)
[2022-01-25] MEDS ORDERED: LIDOCAINE HCL/PF 1% 10 MG/ML 5ML VIAL ONE ×2 (11:00→11:01)
[2022-01-25 11:23] LABS: HEMATOCRIT. 35.3 % (36.0-48.0); HEMOGLOBIN. 10.7 g/dL (12.0-16.0); MEAN CORPUSCULAR VOLUME 82.5 fL (81.0-99.0); MEAN PLATELET VOLUME 11.2 fl (7.4-10.4); PLATELET 149 x1000/uL (130-400); RED BLOOD CELL COUNT 4.28 mill/uL (4.2-5.4); RED CELL DISTRIBUTION WIDTH 20.9 % (11.6-14.6)
[2022-01-25 12:25] LABS: PLATELET ESTIMATE NORMAL
[2022-01-25 13:00] VITALS: BP 124/63
[2022-01-25] MEDS ORDERED: MORPHINE SULFATE 2 MG/ML CPJ (NOT FOR IM USE) IV PRN (13:45)
[2022-01-25] MEDS ORDERED: LIDOCAINE HCL 1% 10 MG/ML 10ML VIAL ONE (14:13)
[2022-01-25] MEDS ORDERED: FENTANYL CITRATE/PF 50MCG/ML 2ML VIAL ONE (14:13)
[2022-01-25] MEDS ORDERED: PROPOFOL 200MG/20ML VIAL IV ONE (14:13)
[2022-01-25 16:40] VITALS: BP 139/60
[2022-01-25 20:00] VITALS: BP 112/61
[2022-01-26] VITALS: BP 125/58
[2022-01-26 04:00] VITALS: BP 131/61
[2022-01-26] MEDS: BLOOD SUGAR DIAGNOSTIC STRIP TEST SCH ×4 (07:21→21:00)
[2022-01-26] MEDS: INSULIN LISPRO 100 UNITS/ML SUBCUT SCH ×4 (07:50→21:00)
[2022-01-26] MEDS: SEVELAMER CARBONATE 800 MG TABLET PO SCH ×3 (07:50→17:55)
[2022-01-26 08:00] VITALS: BP 128/60
[2022-01-26] MEDS: DULOXETINE HCL 60MG DR CAPSULE PO SCH (08:49)
[2022-01-26] MEDS: FOLIC ACID/VITAMIN B COMP W-C TABLET PO SCH (08:49)
[2022-01-26] MEDS: ATORVASTATIN CALCIUM 40MG TABLET PO SCH (08:49)
[2022-01-26] MEDS: MEMANTINE HCL 5MG TABLET PO SCH (08:49)
[2022-01-26] MEDS: ENOXAPARIN 30MG/0.3ML SYR SUBCUT SCH (08:50)
[2022-01-26] MEDS: AMLODIPINE 10MG TABLET PO SCH (08:50)
[2022-01-26] MEDS: PANTOPRAZOLE 40MG DR TABLET PO SCH (08:50)
[2022-01-26 12:00] VITALS: BP 128/64
[2022-01-26 12:28] LABS: INR 1.1; PROTHROMBIN TIME 11.6 sec (9.6-11.0)
[2022-01-26 16:00] VITALS: BP 132/74
[2022-01-26 20:00] VITALS: BP 115/68
[2022-01-26] MEDS ORDERED: PREDNISONE 20MG TABLET PO SCH (20:00)
[2022-01-27] VITALS (17 sets, daily range): BP systolic 114–144; BP diastolic 63–80
[2022-01-27] MEDS ORDERED: PREDNISONE 20MG TABLET PO SCH ×2 (02:00→08:00)
[2022-01-27] MEDS: BLOOD SUGAR DIAGNOSTIC STRIP TEST SCH ×3 (06:58→18:15)
[2022-01-27] MEDS: INSULIN LISPRO 100 UNITS/ML SUBCUT SCH ×3 (07:45→18:26)
[2022-01-27] MEDS ORDERED: DIPHENHYDRAMINE 50MG CAPSULE PO SCH (08:00)
[2022-01-27] MEDS: DULOXETINE HCL 60MG DR CAPSULE PO SCH (08:12)
[2022-01-27] MEDS: PANTOPRAZOLE 40MG DR TABLET PO SCH (08:12)
[2022-01-27] MEDS: FOLIC ACID/VITAMIN B COMP W-C TABLET PO SCH (08:12)
[2022-01-27] MEDS: MEMANTINE HCL 5MG TABLET PO SCH (08:12)
[2022-01-27] MEDS: ATORVASTATIN CALCIUM 40MG TABLET PO SCH (08:12)
[2022-01-27] MEDS: SEVELAMER CARBONATE 800 MG TABLET PO SCH ×3 (08:12→18:20)
[2022-01-27] MEDS: AMLODIPINE 10MG TABLET PO SCH (08:13)
[2022-01-27] MEDS ORDERED: CEFAZOLIN 1000MG PREMIX 50 ML IV NR (09:00)
[2022-01-27] MEDS: ENOXAPARIN 30MG/0.3ML SYR SUBCUT SCH (09:00)
[2022-01-27] MEDS ORDERED: HEPARIN SODIUM,PORCINE/PF 500 UNIT/5 ML SYRINGE ONE (09:12)
[2022-01-27] MEDS ORDERED: LIDOCAINE HCL 1% 30ML VIAL (10MG/ML) ONE (09:12)
[2022-01-27] MEDS ORDERED: FENTANYL CITRATE/PF 50MCG/ML 2ML VIAL ONE (09:22)
[2022-01-27] MEDS ORDERED: CEFAZOLIN 1000MG PREMIX 50 ML IV ONE (09:22)
[2022-01-27] MEDS ORDERED: IOHEXOL-300 50 ML BOTTLE IV ONE (09:46)
[2022-01-27] MEDS ORDERED: FENTANYL CITRATE/PF 50MCG/ML 2ML VIAL IV ONE (10:00)
== END 2022-01-27 18:59 | DRG 252 ==
LOC: ER 12:47 → MICUSO 16:36 → 6WST 01-21 09:30
PROVIDERS: ADMIT Hospitalist; ATTEND Hospitalist
PROC: 05HY33Z Insertion of Infusion Device into Upper Vein, Percutaneous Approach (ICD-10-PCS; principal; 2022-01-20)
PROC: B543ZZA Ultrasonography of Right Jugular Veins, Guidance (ICD-10-PCS; 2022-01-20)
PROC: 5A1D70Z Performance of Urinary Filtration, Intermittent, Less than 6 Hours Per Day (ICD-10-PCS; 2022-01-20)
PROC: 0J2TXYZ Change Other Device in Trunk Subcutaneous Tissue and Fascia, External Approach (ICD-10-PCS; 2022-01-21)
PROC: 5A1D70Z Performance of Urinary Filtration, Intermittent, Less than 6 Hours Per Day (ICD-10-PCS; 2022-01-21)
PROC: 5A1D70Z Performance of Urinary Filtration, Intermittent, Less than 6 Hours Per Day (ICD-10-PCS; 2022-01-24)
PROC: 05LY3ZZ Occlusion of Upper Vein, Percutaneous Approach (ICD-10-PCS; 2022-01-25)
PROC: 5A1D70Z Performance of Urinary Filtration, Intermittent, Less than 6 Hours Per Day (ICD-10-PCS; 2022-01-26)
PROC: 02PY33Z Removal of Infusion Device from Great Vessel, Percutaneous Approach (ICD-10-PCS; 2022-01-27)
PROC: 02HV33Z Insertion of Infusion Device into Superior Vena Cava, Percutaneous Approach (ICD-10-PCS; 2022-01-27)
PROC: 0JH63XZ Insertion of Tunneled Vascular Access Device into Chest Subcutaneous Tissue and Fascia, Percutaneous Approach (ICD-10-PCS; 2022-01-27)
PROC: B5181ZA Fluoroscopy of Superior Vena Cava using Low Osmolar Contrast, Guidance (ICD-10-PCS; 2022-01-27)
PROC: 02PYX3Z Removal of Infusion Device from Great Vessel, External Approach (ICD-10-PCS; 2022-01-27)
PROC: 5A1D70Z Performance of Urinary Filtration, Intermittent, Less than 6 Hours Per Day (ICD-10-PCS; 2022-01-27)
DX: T82.868A Thrombosis due to vascular prosthetic devices, implants and grafts, initial encounter (principal); G93.41 Metabolic encephalopathy; J96.00 Acute respiratory failure, unspecified whether with hypoxia or hypercapnia; N18.6 End stage renal disease; I50.33 Acute on chronic diastolic (congestive) heart failure; I13.2 Hypertensive heart and chronic kidney disease with heart failure and with stage 5 chronic kidney disease, or end stage renal disease; E46 Unspecified protein-calorie malnutrition; I82.B12 Acute embolism and thrombosis of left subclavian vein; Z20.822 Contact with and (suspected) exposure to COVID-19; D63.1 Anemia in chronic kidney disease; E11.22 Type 2 diabetes mellitus with diabetic chronic kidney disease; E11.51 Type 2 diabetes mellitus with diabetic peripheral angiopathy without gangrene; G30.9 Alzheimer's disease, unspecified; S30.0XXA Contusion of lower back and pelvis, initial encounter; X58.XXXA Exposure to other specified factors, initial encounter; E78.5 Hyperlipidemia, unspecified; Y83.8 Other surgical procedures as the cause of abnormal reaction of the patient, or of later complication, without mention of misadventure at the time of the procedure; F02.80 Dementia in other diseases classified elsewhere, unspecified severity, without behavioral disturbance, psychotic disturbance, mood disturbance, and anxiety; I25.10 Atherosclerotic heart disease of native coronary artery without angina pectoris; I25.2 Old myocardial infarction; Z88.8 Allergy status to other drugs, medicaments and biological substances; Z82.49 Family history of ischemic heart disease and other diseases of the circulatory system; Z89.511 Acquired absence of right leg below knee; Z89.512 Acquired absence of left leg below knee; Z99.2 Dependence on renal dialysis; Y93.89 Activity, other specified; Y92.89 Other specified places as the place of occurrence of the external cause; Y99.8 Other external cause status; K21.9 Gastro-esophageal reflux disease without esophagitis; T82.898A Other specified complication of vascular prosthetic devices, implants and grafts, initial encounter
CPT/HCPCS: 36415; 36556; 36580; 36589; 36597; 71045; 76937; 77001; 80048; 80053; 82040; 82962; 83036; 84134; 84484; 85025; 86705; 86709; 86803; 87340; 87426; 93005; 93970; 99152; 99153; 99291; C1725; C1750; C1752; C1769; J0690; J1642; J1644; J1650; J1815; J2270; J2704; J3010; J3490; J7512; Q0163; Q9967; G0500

== ENCOUNTER 2022-04-18 18:23 | Inpatient (IN) | payer MEDICARE, MEDICAID ==
[~2022-04-18] VITALS: Ht 121.9 cm; Wt 38.1 kg
[~2022-04-18 18:23] MED LIST changes: -DULO60CA44 PO; +DULO60CA45 PO
[2022-04-18] MEDS ORDERED: ACETAMINOPHEN 650MG SUPP PR STA (18:55)
[2022-04-18] MEDS ORDERED: PIPERACILLIN/TAZ 3.375G PREMIX 50 ML IV ONE (19:00)
[2022-04-18] MEDS ORDERED: VANCOMYCIN 1G PREMIX 200 ML IV ONE (19:00)
[2022-04-18 19:01] LABS: BG BASE EXCESS -1.6 mmol/L (-2.0-2.0); BG CARBOXYHEMOGLOBIN 0.9 % (0.5-1.5); BG DEOXYHEMOGLOBIN 0.9 % (0.0-5.0); BG FRACTION INSPIRED OXYGEN 100; BG METHEMOGLOBIN 0.2 % (0.0-1.5); BG OXYGEN SATURATION 99.1 % (92.0-98.5); BG PCO2 33.3 mmHg (35.0-45.0); BG PH 7.437 (7.350-7.450); BG PO2 168.6 mmHg (75.0-100.0); BG SAMPLE SITE RIGHT BRACHIAL; BG TOTAL HEMOGLOBIN 11.5 g/dL (12.0-18.0); BG VENT MODE MASK - NRB
[2022-04-18 20:37] LABS: HEMATOCRIT. 35.3 % (36.0-48.0); HEMOGLOBIN. 10.6 g/dL (12.0-16.0); MEAN CORPUSCULAR VOLUME 76.7 fL (81.0-99.0); PLATELET 149 x1000/uL (130-400)
[2022-04-18 20:44] LABS: CHLORIDE 108 mEq/L (98-107)
[2022-04-18 21:48] LABS: PLATELET ESTIMATE NORMAL
[2022-04-18] MEDS ORDERED: IPRATROPIUM/ALBUTEROL 0.5-3(2.5)MG/3ML NEB HHN PRN (22:15)
[2022-04-18] MEDS ORDERED: GUAIFENESIN 200MG/10ML SUGAR FREE UDC PO PRN (22:15)
[2022-04-18] MEDS ORDERED: MAGNESIUM/ALUMINUM HYDROXIDE/SIMETHICONE 30ML UDC PO PRN (22:15)
[2022-04-18] MEDS ORDERED: DIPHENHYDRAMINE 50MG/ML VIAL IV PRN (22:15)
[2022-04-18] MEDS ORDERED: HYDROMORPHONE HCL/PF 2MG/ML CPJ IV PRN (22:15)
[2022-04-18] MEDS ORDERED: ONDANSETRON HCL 4MG/2ML INJ IV PRN (22:15)
[2022-04-18] MEDS ORDERED: HYDROCODONE/ACETAMINOPHEN 5/325MG TABLET PO PRN (22:15)
[2022-04-18] MEDS ORDERED: PIPERACILLIN/TAZOBACTAM 3.375 G in DEXTROSE 5% WATER 50 ML IV SCH (22:15)
[2022-04-19] VITALS (83 sets, daily range): BP systolic 82–143; BP diastolic 42–90
[2022-04-19 01:35] LABS: BG BASE EXCESS -1.7 mmol/L (-2.0-2.0); BG CARBOXYHEMOGLOBIN 0.4 % (0.5-1.5); BG DEOXYHEMOGLOBIN 0.7 % (0.0-5.0); BG FRACTION INSPIRED OXYGEN 100; BG HCO3 ACT 25.1 mmol/L (22.0-26.0); BG METHEMOGLOBIN 0.1 % (0.0-1.5); BG OXYGEN SATURATION 99.3 % (92.0-98.5); BG OXYHEMOGLOBIN 98.8 % (94.0-97.0); BG PCO2 52.4 mmHg (35.0-45.0); BG PH 7.299 (7.350-7.450); BG SAMPLE SITE RIGHT RADIAL; BG TOTAL HEMOGLOBIN 11.2 g/dL (12.0-18.0); BG VENT MODE MASK - NRB
[2022-04-19] MEDS: PROPOFOL 10MG/ML 100ML 100 ML IV PRN (02:54)
[2022-04-19] MEDS: PHENYLEPHRINE 100 MG in DEXT 5% WATER 240 ML IV PRN (02:55)
[2022-04-19] MEDS: AMLODIPINE 10MG TABLET PO SCH ×2 (03:02→09:00)
[2022-04-19 04:12] LABS: BG BASE EXCESS -1.6 mmol/L (-2.0-2.0); BG CARBOXYHEMOGLOBIN 0.7 % (0.5-1.5); BG FRACTION INSPIRED OXYGEN 50; BG METHEMOGLOBIN 0.1 % (0.0-1.5); BG OXYHEMOGLOBIN 97.2 % (94.0-97.0); BG PCO2 43.7 mmHg (35.0-45.0); BG PH 7.357 (7.350-7.450); BG SAMPLE SITE RIGHT BRACHIAL; BG VENT MODE VENT - AC
[2022-04-19 06:33] LABS: CHLORIDE 109 mEq/L (98-107)
[2022-04-19] MEDS ORDERED: ETOMIDATE 2MG/ML 10ML VIAL IV ONE (08:33)
[2022-04-19] MEDS ORDERED: SUCCINYLCHOLINE CHLORIDE 200MG/10ML IV ONE (08:33)
[2022-04-19] MEDS ORDERED: VECURONIUM BROMIDE 10 MG/VIAL IV ONE (08:33)
[2022-04-19] MEDS ORDERED: LIDOCAINE HCL/PF 1% 10 MG/ML 5ML VIAL ONE (09:31)
[2022-04-19] MEDS: PANTOPRAZOLE SODIUM 40 MG/VIAL IV SCH (10:47)
[2022-04-19] MEDS: MIDODRINE HCL 5MG TABLET PO SCH ×3 (10:53→16:10)
[2022-04-19] MEDS ORDERED: IPRATROPIUM/ALBUTEROL 0.5-3(2.5)MG/3ML NEB HHN PRN (11:00)
[2022-04-19] MEDS ORDERED: VANCOMYCIN 500 MG in DEXT 5% WATER 100 ML IV NR (11:00)
[2022-04-19] MEDS ORDERED: PROPOFOL 10MG/ML 100ML 100 ML IV PRN (11:00)
[2022-04-19] MEDS: MUPIROCIN 2% OINT 22GM NS SCH ×2 (12:58→20:56)
[2022-04-19] MEDS: PIPERACILLIN/TAZOBACTAM 3.375 G in DEXTROSE 5% WATER 50 ML IV SCH ×2 (12:58→20:56)
[2022-04-19 13:22] LABS: HEMATOCRIT. 32.7 % (36.0-48.0); HEMOGLOBIN. 9.9 g/dL (12.0-16.0); MEAN CORPUSCULAR HEMOGLOBIN 23.3 pg (28.0-32.0); MEAN PLATELET VOLUME 11.7 fl (7.4-10.4); RED BLOOD CELL COUNT 4.24 mill/uL (4.2-5.4); RED CELL DISTRIBUTION WIDTH 20.5 % (11.6-14.6)
[2022-04-19 13:30] LABS: PLATELET 123 x1000/uL (130-400)
[2022-04-19 13:57] LABS: PLATELET ESTIMATE SLIGHTLY DECREASED
[2022-04-19] MEDS: ACETYLCYSTEINE 100MG/ML 10% VIAL 4ML INH SCH (15:59)
[2022-04-19] MEDS: IPRATROPIUM/ALBUTEROL 0.5-3(2.5)MG/3ML NEB HHN SCH ×2 (15:59→20:28)
[2022-04-20] VITALS (53 sets, daily range): BP systolic 90–137; BP diastolic 42–78
[2022-04-20] MEDS: IPRATROPIUM/ALBUTEROL 0.5-3(2.5)MG/3ML NEB HHN SCH ×6 (00:19→20:24)
[2022-04-20] MEDS: ACETYLCYSTEINE 100MG/ML 10% VIAL 4ML INH SCH ×2 (00:19→08:15)
[2022-04-20 05:49] LABS: HEMATOCRIT. 32.6 % (36.0-48.0); MEAN CORPUSCULAR HEMOGLOBIN 23.4 pg (28.0-32.0); MEAN PLATELET VOLUME 11.6 fl (7.4-10.4); PLATELET 134 x1000/uL (130-400); RED BLOOD CELL COUNT 4.29 mill/uL (4.2-5.4); RED CELL DISTRIBUTION WIDTH 20.5 % (11.6-14.6)
[2022-04-20] MEDS: PROPOFOL 10MG/ML 100ML 100 ML IV PRN (06:16)
[2022-04-20 08:05] LABS: PLATELET ESTIMATE NORMAL
[2022-04-20] MEDS: MUPIROCIN 2% OINT 22GM NS SCH ×2 (09:00→21:55)
[2022-04-20] MEDS: AMLODIPINE 10MG TABLET PO SCH (09:00)
[2022-04-20] MEDS: PIPERACILLIN/TAZOBACTAM 3.375 G in DEXTROSE 5% WATER 50 ML IV SCH ×2 (09:00→21:55)
[2022-04-20] MEDS: MIDODRINE HCL 5MG TABLET PO SCH ×3 (09:00→17:00)
[2022-04-20] MEDS: PANTOPRAZOLE SODIUM 40 MG/VIAL IV SCH (09:00)
[2022-04-20] MEDS ORDERED: DILTIAZEM HCL 5MG/ML 5ML VIAL IV NR (11:14)
[2022-04-20 12:30] LABS: BG BASE EXCESS -3.5 mmol/L (-2.0-2.0); BG DEOXYHEMOGLOBIN 3.3 % (0.0-5.0); BG FRACTION INSPIRED OXYGEN 40; BG HCO3 ACT 20.2 mmol/L (22.0-26.0); BG METHEMOGLOBIN 0.3 % (0.0-1.5); BG OXYGEN SATURATION 96.7 % (92.0-98.5); BG OXYHEMOGLOBIN 96.4 % (94.0-97.0); BG PCO2 31.9 mmHg (35.0-45.0); BG PO2 88.7 mmHg (75.0-100.0); BG SAMPLE SITE RIGHT BRACHIAL; BG TOTAL HEMOGLOBIN 10.3 g/dL (12.0-18.0); BG VENT MODE VENT - AC
[2022-04-20] MEDS ORDERED: SODIUM BICARBONATE 8.4% 1 MEQ/ML 50ML SYR IV NR (12:30)
[2022-04-20] MEDS ORDERED: AMIODARONE HCL 900 MG in DEXT 5% WATER 482 ML IV SCH (13:00)
[2022-04-20] MEDS ORDERED: AMIODARONE HCL 150 MG in DEXT 5% WATER 100 ML IV NR (13:30)
[2022-04-20] MEDS ORDERED: AMIODARONE HCL IV SCH (18:00)
[2022-04-20] MEDS ORDERED: WATER IV SCH (18:00)
[2022-04-20] MEDS ORDERED: DEXT 5% IV SCH (18:00)
[2022-04-21] VITALS (48 sets, daily range): BP systolic 99–158; BP diastolic 35–105
[2022-04-21] MEDS: IPRATROPIUM/ALBUTEROL 0.5-3(2.5)MG/3ML NEB HHN SCH ×3 (00:22→07:27)
[2022-04-21] MEDS: ACETYLCYSTEINE 100MG/ML 10% VIAL 4ML INH SCH ×2 (00:23→07:28)
[2022-04-21 05:13] LABS: HEMATOCRIT. 31.8 % (36.0-48.0); HEMOGLOBIN. 9.8 g/dL (12.0-16.0); MEAN CORPUSCULAR HEMOGLOBIN 23.5 pg (28.0-32.0); MEAN CORPUSCULAR VOLUME 75.9 fL (81.0-99.0); PLATELET 123 x1000/uL (130-400); RED BLOOD CELL COUNT 4.19 mill/uL (4.2-5.4); RED CELL DISTRIBUTION WIDTH 20.1 % (11.6-14.6)
[2022-04-21 08:33] LABS: BG BASE EXCESS -1.9 mmol/L (-2.0-2.0); BG CARBOXYHEMOGLOBIN 0.1 % (0.5-1.5); BG DEOXYHEMOGLOBIN 2.7 % (0.0-5.0); BG FRACTION INSPIRED OXYGEN 40; BG HCO3 ACT 22.2 mmol/L (22.0-26.0); BG METHEMOGLOBIN 0.3 % (0.0-1.5); BG OXYGEN SATURATION 97.3 % (92.0-98.5); BG OXYHEMOGLOBIN 96.9 % (94.0-97.0); BG PCO2 35.2 mmHg (35.0-45.0); BG PH 7.418 (7.350-7.450); BG PO2 91.9 mmHg (75.0-100.0); BG SAMPLE SITE RIGHT RADIAL; BG TOTAL HEMOGLOBIN 10.2 g/dL (12.0-18.0); BG TOTAL RESPIRATORY RATE 22 b/min; BG VENT MODE VENT - AC
[2022-04-21] MEDS: PIPERACILLIN/TAZOBACTAM 3.375 G in DEXTROSE 5% WATER 50 ML IV SCH ×2 (09:00→21:57)
[2022-04-21] MEDS: PANTOPRAZOLE SODIUM 40 MG/VIAL IV SCH (09:00)
[2022-04-21] MEDS: MUPIROCIN 2% OINT 22GM NS SCH ×2 (09:00→21:57)
[2022-04-21] MEDS: AMLODIPINE 10MG TABLET PO SCH (09:00)
[2022-04-21] MEDS: MIDODRINE HCL 5MG TABLET PO SCH ×3 (09:00→17:35)
[2022-04-21] MEDS: AMIODARONE HCL 200 MG TABLET NG SCH ×2 (10:00→20:49)
[2022-04-21 11:01] LABS: PLATELET ESTIMATE SLIGHTLY DECREASED
[2022-04-21] MEDS: IPRATROPIUM BROMIDE (0.02%) 0.5MG/2.5ML NEB HHN SCH ×2 (11:38→20:30)
[2022-04-21 12:55] LABS: BG CARBOXYHEMOGLOBIN 0.8 % (0.5-1.5); BG FRACTION INSPIRED OXYGEN 40; BG HCO3 ACT 22.7 mmol/L (22.0-26.0); BG METHEMOGLOBIN 0.3 % (0.0-1.5); BG OXYGEN SATURATION 94.9 % (92.0-98.5); BG OXYHEMOGLOBIN 93.9 % (94.0-97.0); BG PCO2 38.3 mmHg (35.0-45.0); BG PO2 77.3 mmHg (75.0-100.0); BG SAMPLE SITE RIGHT BRACHIAL; BG TOTAL HEMOGLOBIN 11.2 g/dL (12.0-18.0); BG VENT MODE VENT - CPAP
[2022-04-21] MEDS ORDERED: NALOXONE HCL 0.4MG/ML VIAL IV PRN (13:15)
[2022-04-21] MEDS ORDERED: VANCOMYCIN 500 MG in DEXT 5% WATER 100 ML IV NR (15:00)
[2022-04-21] MEDS ORDERED: DEXTROSE 50% WATER 50ML SYRINGE IV PRN (20:30)
[2022-04-21] MEDS ORDERED: HYDRALAZINE 20MG/ML VIAL IV PRN (21:30)
[2022-04-22] VITALS (61 sets, daily range): BP systolic 66–143; BP diastolic 30–103
[2022-04-22] MEDS ORDERED: INSULIN LISPRO 100 UNITS/ML SUBCUT SCH
[2022-04-22] MEDS: IPRATROPIUM BROMIDE (0.02%) 0.5MG/2.5ML NEB HHN SCH ×4 (02:44→20:32)
[2022-04-22] MEDS: INSULIN LISPRO 100 UNITS/ML SUBCUT SCH ×5 (02:58→23:44)
[2022-04-22 05:27] LABS: HEMATOCRIT. 34.2 % (36.0-48.0); HEMOGLOBIN. 10.6 g/dL (12.0-16.0); MEAN CORPUSCULAR HEMOGLOBIN 23.7 pg (28.0-32.0); MEAN CORPUSCULAR VOLUME 76.1 fL (81.0-99.0); MEAN PLATELET VOLUME 10.9 fl (7.4-10.4); PLATELET 128 x1000/uL (130-400); RED BLOOD CELL COUNT 4.49 mill/uL (4.2-5.4); RED CELL DISTRIBUTION WIDTH 20.1 % (11.6-14.6)
[2022-04-22 05:34] LABS: PHOSPHORUS 1.2 mg/dL (2.5-4.9)
[2022-04-22] MEDS: BLOOD SUGAR DIAGNOSTIC STRIP TEST SCH ×5 (06:09→23:45)
[2022-04-22 07:22] LABS: PLATELET ESTIMATE SLIGHTLY DECREASED
[2022-04-22] MEDS ORDERED: METHYLPREDNISOLONE SOD SUCC 125 MG/2 ML VIAL IV NR (08:45)
[2022-04-22] MEDS: MIDODRINE HCL 5MG TABLET PO SCH ×4 (09:00→18:25)
[2022-04-22] MEDS: AMLODIPINE 10MG TABLET PO SCH (09:00)
[2022-04-22] MEDS: PIPERACILLIN/TAZOBACTAM 3.375 G in DEXTROSE 5% WATER 50 ML IV SCH ×2 (09:44→20:50)
[2022-04-22] MEDS: AMIODARONE HCL 200 MG TABLET NG SCH (09:45)
[2022-04-22] MEDS: PANTOPRAZOLE SODIUM 40 MG/VIAL IV SCH (09:45)
[2022-04-22] MEDS: MUPIROCIN 2% OINT 22GM NS SCH (09:46)
[2022-04-22 11:21] LABS: BG BASE EXCESS -1.3 mmol/L (-2.0-2.0); BG CARBOXYHEMOGLOBIN 1.2 % (0.5-1.5); BG DEOXYHEMOGLOBIN 4.9 % (0.0-5.0); BG HCO3 ACT 23.8 mmol/L (22.0-26.0); BG METHEMOGLOBIN 0.2 % (0.0-1.5); BG OXYHEMOGLOBIN 93.7 % (94.0-97.0); BG PH 7.381 (7.350-7.450); BG PO2 72.7 mmHg (75.0-100.0); BG SAMPLE SITE RIGHT RADIAL; BG VENT MODE MASK - BIPAP
[2022-04-22] MEDS ORDERED: INSULIN GLARGINE 100 UNITS/ML SUBCUT SCH (11:45)
[2022-04-22] MEDS ORDERED: POTASSIUM PHOS,M-BASIC-D-BASIC 30 MMOL in DEXT 5% WATER 500 ML IV NR (13:30)
[2022-04-22 13:44] LABS: HEPATITIS B SURFACE ANTIGEN NEGATIVE
[2022-04-22] MEDS: CARVEDILOL 3.125 MG TABLET NG SCH ×2 (18:00→20:50)
[2022-04-22] MEDS: MUPIROCIN 2% OINT 22GM TOP SCH (20:52)
[2022-04-23] VITALS (47 sets, daily range): BP systolic 110–154; BP diastolic 42–91
[2022-04-23] MEDS: BLOOD SUGAR DIAGNOSTIC STRIP TEST SCH ×3 (05:56→18:26)
[2022-04-23] MEDS: INSULIN LISPRO 100 UNITS/ML SUBCUT SCH ×3 (06:01→18:27)
[2022-04-23] MEDS: IPRATROPIUM BROMIDE (0.02%) 0.5MG/2.5ML NEB HHN SCH ×5 (08:24→23:53)
[2022-04-23] MEDS: PIPERACILLIN/TAZOBACTAM 3.375 G in DEXTROSE 5% WATER 50 ML IV SCH ×2 (08:53→21:18)
[2022-04-23] MEDS: PANTOPRAZOLE SODIUM 40 MG/VIAL IV SCH (08:53)
[2022-04-23] MEDS: FOLIC ACID/VITAMIN B COMP W-C TABLET PO SCH (08:54)
[2022-04-23] MEDS: AMLODIPINE 10MG TABLET PO SCH (08:54)
[2022-04-23] MEDS: CARVEDILOL 3.125 MG TABLET NG SCH ×2 (08:54→21:00)
[2022-04-23] MEDS: MIDODRINE HCL 5MG TABLET PO SCH ×3 (08:55→17:00)
[2022-04-23] MEDS: INSULIN GLARGINE 100 UNITS/ML SUBCUT SCH (10:26)
[2022-04-23 12:30] LABS: BG BASE EXCESS -8.7 mmol/L (-2.0-2.0); BG CARBOXYHEMOGLOBIN 0.8 % (0.5-1.5); BG DEOXYHEMOGLOBIN 6.2 % (0.0-5.0); BG FRACTION INSPIRED OXYGEN 60; BG HCO3 ACT 18.3 mmol/L (22.0-26.0); BG METHEMOGLOBIN 0.2 % (0.0-1.5); BG OXYGEN SATURATION 93.7 % (92.0-98.5); BG OXYHEMOGLOBIN 92.8 % (94.0-97.0); BG PCO2 43.9 mmHg (35.0-45.0); BG PH 7.238 (7.350-7.450); BG PO2 77.3 mmHg (75.0-100.0); BG SAMPLE SITE RIGHT RADIAL; BG TOTAL HEMOGLOBIN 11.2 g/dL (12.0-18.0); BG VENT MODE COOL AEROSOL
[2022-04-23] MEDS: MUPIROCIN 2% OINT 22GM TOP SCH ×2 (18:26→21:00)
[2022-04-23] MEDS ORDERED: HYDROCODONE/ACETAMINOPHEN 5/325MG TABLET PO PRN (22:45)
[2022-04-23] MEDS: HYDROMORPHONE HCL/PF 2MG/ML CPJ IM PRN (22:54)
[2022-04-24] VITALS (59 sets, daily range): BP systolic 81–163; BP diastolic 35–113
[2022-04-24] MEDS: INSULIN LISPRO 100 UNITS/ML SUBCUT SCH ×4 (01:38→16:51)
[2022-04-24] MEDS: IPRATROPIUM BROMIDE (0.02%) 0.5MG/2.5ML NEB HHN SCH ×4 (04:09→20:38)
[2022-04-24 05:06] LABS: HEMATOCRIT. 34.4 % (36.0-48.0); HEMOGLOBIN. 10.4 g/dL (12.0-16.0); MEAN CORPUSCULAR HEMOGLOBIN 22.9 pg (28.0-32.0); MEAN CORPUSCULAR VOLUME 75.5 fL (81.0-99.0); RED BLOOD CELL COUNT 4.55 mill/uL (4.2-5.4); RED CELL DISTRIBUTION WIDTH 20.1 % (11.6-14.6)
[2022-04-24] MEDS: BLOOD SUGAR DIAGNOSTIC STRIP TEST SCH ×5 (06:00→23:50)
[2022-04-24 08:01] LABS: PLATELET ESTIMATE DECREASED
[2022-04-24 08:14] LABS: MEAN PLATELET VOLUME 10.1 fl (7.4-10.4); PLATELET 101 x1000/uL (130-400)
[2022-04-24] MEDS: AMLODIPINE 10MG TABLET PO SCH (09:00)
[2022-04-24] MEDS: CARVEDILOL 3.125 MG TABLET NG SCH ×2 (09:00→21:00)
[2022-04-24] MEDS: MIDODRINE HCL 5MG TABLET PO SCH ×3 (09:01→16:37)
[2022-04-24] MEDS: PANTOPRAZOLE SODIUM 40 MG/VIAL IV SCH (09:01)
[2022-04-24] MEDS: FOLIC ACID/VITAMIN B COMP W-C TABLET PO SCH (09:01)
[2022-04-24] MEDS: INSULIN GLARGINE 100 UNITS/ML SUBCUT SCH (09:36)
[2022-04-24 11:04] LABS: BG BASE EXCESS -5.3 mmol/L (-2.0-2.0); BG CARBOXYHEMOGLOBIN 1.2 % (0.5-1.5); BG DEOXYHEMOGLOBIN 3.1 % (0.0-5.0); BG FRACTION INSPIRED OXYGEN 50; BG METHEMOGLOBIN 0.3 % (0.0-1.5); BG OXYGEN SATURATION 96.9 % (92.0-98.5); BG OXYHEMOGLOBIN 95.4 % (94.0-97.0); BG PCO2 51.3 mmHg (35.0-45.0); BG PH 7.251 (7.350-7.450); BG PO2 97.8 mmHg (75.0-100.0); BG SAMPLE SITE RIGHT RADIAL; BG TOTAL HEMOGLOBIN 11.3 g/dL (12.0-18.0); BG VENT MODE MASK - BIPAP
[2022-04-24] MEDS: ACETAMINOPHEN 325MG TABLET PO PRN (14:45)
[2022-04-24] MEDS: NOREPINEPHRINE 32 MG in DEXT 5% WATER 218 ML IV PRN (16:40)
[2022-04-24] MEDS ORDERED: VANCOMYCIN 500 MG in DEXT 5% WATER 100 ML IV SCH (21:00)
[2022-04-25] VITALS (34 sets, daily range): BP systolic 50–133; BP diastolic 37–74
[2022-04-25] MEDS: HYDROMORPHONE HCL/PF 2MG/ML CPJ IM PRN (00:03)
[2022-04-25] MEDS: INSULIN LISPRO 100 UNITS/ML SUBCUT SCH ×4 (00:05→18:29)
[2022-04-25] MEDS: IPRATROPIUM BROMIDE (0.02%) 0.5MG/2.5ML NEB HHN SCH ×4 (02:14→20:49)
[2022-04-25 05:36] LABS: HEMATOCRIT. 32.5 % (36.0-48.0); HEMOGLOBIN. 10.2 g/dL (12.0-16.0); MEAN CORPUSCULAR HEMOGLOBIN 23.1 pg (28.0-32.0); RED BLOOD CELL COUNT 4.39 mill/uL (4.2-5.4)
[2022-04-25] MEDS: BLOOD SUGAR DIAGNOSTIC STRIP TEST SCH ×3 (06:21→18:00)
[2022-04-25 07:22] LABS: MEAN PLATELET VOLUME 10.2 fl (7.4-10.4); PLATELET 95 x1000/uL (130-400)
[2022-04-25 07:43] LABS: PLATELET ESTIMATE SLIGHTLY DECREASED
[2022-04-25] MEDS: FOLIC ACID/VITAMIN B COMP W-C TABLET PO SCH (08:31)
[2022-04-25] MEDS: MIDODRINE HCL 5MG TABLET PO SCH ×3 (08:31→17:00)
[2022-04-25] MEDS: AMLODIPINE 10MG TABLET PO SCH (08:32)
[2022-04-25] MEDS: PANTOPRAZOLE SODIUM 40 MG/VIAL IV SCH (08:32)
[2022-04-25] MEDS: CARVEDILOL 3.125 MG TABLET NG SCH ×2 (08:32→20:57)
[2022-04-25 08:34] LABS: BG BASE EXCESS -0.1 mmol/L (-2.0-2.0); BG CARBOXYHEMOGLOBIN 0.5 % (0.5-1.5); BG DEOXYHEMOGLOBIN 7.6 % (0.0-5.0); BG FRACTION INSPIRED OXYGEN 45; BG HCO3 ACT 26.1 mmol/L (22.0-26.0); BG METHEMOGLOBIN 0.3 % (0.0-1.5); BG OXYGEN SATURATION 92.3 % (92.0-98.5); BG OXYHEMOGLOBIN 91.6 % (94.0-97.0); BG PCO2 49.8 mmHg (35.0-45.0); BG PH 7.338 (7.350-7.450); BG PO2 67.8 mmHg (75.0-100.0); BG SAMPLE SITE RIGHT RADIAL; BG TOTAL RESPIRATORY RATE 22 b/min; BG VENT MODE MASK - BIPAP
[2022-04-25] MEDS: ACETAMINOPHEN 325MG TABLET PO PRN (08:40)
[2022-04-25] MEDS ORDERED: POTASSIUM CHLORIDE 20MEQ/PACKET NG SCH (12:15)
[2022-04-25] MEDS: INSULIN GLARGINE 100 UNITS/ML SUBCUT SCH (12:23)
[2022-04-26] VITALS (42 sets, daily range): BP systolic 83–137; BP diastolic 32–93
[2022-04-26] MEDS: BLOOD SUGAR DIAGNOSTIC STRIP TEST SCH ×4 (00:55→18:38)
[2022-04-26] MEDS: IPRATROPIUM BROMIDE (0.02%) 0.5MG/2.5ML NEB HHN SCH ×4 (01:41→21:27)
[2022-04-26 05:42] LABS: HEMATOCRIT. 32.6 % (36.0-48.0); MEAN CORPUSCULAR HEMOGLOBIN 22.9 pg (28.0-32.0); MEAN CORPUSCULAR VOLUME 74.7 fL (81.0-99.0); RED BLOOD CELL COUNT 4.37 mill/uL (4.2-5.4); RED CELL DISTRIBUTION WIDTH 20.1 % (11.6-14.6)
[2022-04-26 06:12] LABS: PHOSPHORUS 1.8 mg/dL (2.5-4.9)
[2022-04-26] MEDS: INSULIN LISPRO 100 UNITS/ML SUBCUT SCH ×4 (06:35→18:36)
[2022-04-26 08:04] LABS: BG BASE EXCESS -1.7 mmol/L (-2.0-2.0); BG CARBOXYHEMOGLOBIN 1.7 % (0.5-1.5); BG DEOXYHEMOGLOBIN 17.8 % (0.0-5.0); BG FRACTION INSPIRED OXYGEN 44; BG HCO3 ACT 22.7 mmol/L (22.0-26.0); BG METHEMOGLOBIN 0.1 % (0.0-1.5); BG OXYGEN SATURATION 81.9 % (92.0-98.5); BG OXYHEMOGLOBIN 80.4 % (94.0-97.0); BG PCO2 37.3 mmHg (35.0-45.0); BG PH 7.403 (7.350-7.450); BG PO2 45.4 mmHg (75.0-100.0); BG SAMPLE SITE LEFT RADIAL; BG VENT MODE NASAL CANNULA
[2022-04-26 08:16] LABS: NUCLEATED RED BLOOD CELLS 1 /100 WBC
[2022-04-26 08:17] LABS: PLATELET ESTIMATE DECREASED
[2022-04-26 08:18] LABS: PLATELET 106 x1000/uL (130-400)
[2022-04-26 08:19] LABS: MEAN PLATELET VOLUME 9.9 fl (7.4-10.4)
[2022-04-26] MEDS: CARVEDILOL 3.125 MG TABLET NG SCH ×2 (09:00→21:34)
[2022-04-26] MEDS: FOLIC ACID/VITAMIN B COMP W-C TABLET PO SCH (09:20)
[2022-04-26] MEDS: MIDODRINE HCL 5MG TABLET PO SCH ×3 (09:20→17:01)
[2022-04-26] MEDS: PANTOPRAZOLE SODIUM 40 MG/VIAL IV SCH (09:21)
[2022-04-26] MEDS: ACETAMINOPHEN 325MG TABLET PO PRN (09:21)
[2022-04-26] MEDS: ZINC SULFATE 220 MG ( 50 ) CAPSULE PO SCH (09:21)
[2022-04-26] MEDS: INSULIN GLARGINE 100 UNITS/ML SUBCUT SCH (10:00)
[2022-04-26] MEDS ORDERED: SODIUM CHLORIDE 3% FOR INH 4ML UD NEB INH SCH (12:00)
[2022-04-26 12:36] LABS: INR 1.1; PARTIAL THROMBOPLASTIN TIME 39.7 sec (23.4-31.0); PROTHROMBIN TIME 11.7 sec (9.6-11.0)
[2022-04-26] MEDS: ASCORBIC ACID 250 MG TABLET PO SCH (12:55)
[2022-04-26] MEDS ORDERED: SODIUM BICARBONATE 4% (2.4MEQ) 5ML VIAL IV ONE (14:08)
[2022-04-26] MEDS: ACETYLCYSTEINE 100MG/ML 10% VIAL 4ML INH SCH (14:42)
[2022-04-26 15:49] LABS: BG BASE EXCESS -2.9 mmol/L (-2.0-2.0); BG DEOXYHEMOGLOBIN 12.2 % (0.0-5.0); BG HCO3 ACT 23.5 mmol/L (22.0-26.0); BG METHEMOGLOBIN 0.4 % (0.0-1.5); BG OXYGEN SATURATION 87.6 % (92.0-98.5); BG OXYHEMOGLOBIN 86.4 % (94.0-97.0); BG PH 7.316 (7.350-7.450); BG PO2 60.3 mmHg (75.0-100.0); BG SAMPLE SITE RIGHT RADIAL; BG VENT MODE MASK - BIPAP
[2022-04-27] VITALS (78 sets, daily range): BP systolic 35–147; BP diastolic 18–91
[2022-04-27] MEDS: BLOOD SUGAR DIAGNOSTIC STRIP TEST SCH ×5 (00:27→23:36)
[2022-04-27] MEDS: INSULIN LISPRO 100 UNITS/ML SUBCUT SCH ×5 (00:29→23:36)
[2022-04-27] MEDS: ACETYLCYSTEINE 100MG/ML 10% VIAL 4ML INH SCH ×3 (01:37→12:56)
[2022-04-27] MEDS: IPRATROPIUM BROMIDE (0.02%) 0.5MG/2.5ML NEB HHN SCH ×3 (01:37→12:55)
[2022-04-27 07:55] LABS: HEMATOCRIT. 30.9 % (36.0-48.0); HEMOGLOBIN. 9.4 g/dL (12.0-16.0); MEAN CORPUSCULAR HEMOGLOBIN 22.6 pg (28.0-32.0); MEAN CORPUSCULAR VOLUME 74.1 fL (81.0-99.0); MEAN PLATELET VOLUME 10.9 fl (7.4-10.4); PLATELET 128 x1000/uL (130-400); RED BLOOD CELL COUNT 4.17 mill/uL (4.2-5.4); RED CELL DISTRIBUTION WIDTH 19.9 % (11.6-14.6)
[2022-04-27] MEDS: ASCORBIC ACID 250 MG TABLET PO SCH (09:00)
[2022-04-27] MEDS ORDERED: NALOXONE HCL 0.4MG/ML VIAL IV PRN (09:45)
[2022-04-27] MEDS ORDERED: SODIUM CHLORIDE 3% FOR INH 4ML UD NEB INH SCH (10:30)
[2022-04-27] MEDS ORDERED: HYDROMORPHONE HCL/PF 2MG/ML CPJ IV PRN (10:45)
[2022-04-27] MEDS: FOLIC ACID/VITAMIN B COMP W-C TABLET PO SCH (10:48)
[2022-04-27] MEDS: MIDODRINE HCL 5MG TABLET PO SCH ×3 (10:48→16:17)
[2022-04-27] MEDS: ZINC SULFATE 220 MG ( 50 ) CAPSULE PO SCH (10:48)
[2022-04-27] MEDS: PANTOPRAZOLE SODIUM 40 MG/VIAL IV SCH (10:48)
[2022-04-27] MEDS: INSULIN GLARGINE 100 UNITS/ML SUBCUT SCH (11:17)
[2022-04-27] MEDS: CARVEDILOL 3.125 MG TABLET NG SCH ×2 (11:18→20:44)
[2022-04-27 12:00] LABS: BG BASE EXCESS -0.5 mmol/L (-2.0-2.0); BG CARBOXYHEMOGLOBIN 1.1 % (0.5-1.5); BG DEOXYHEMOGLOBIN 7.8 % (0.0-5.0); BG FRACTION INSPIRED OXYGEN 50; BG HCO3 ACT 24.4 mmol/L (22.0-26.0); BG METHEMOGLOBIN 0.2 % (0.0-1.5); BG OXYGEN SATURATION 92.1 % (92.0-98.5); BG OXYHEMOGLOBIN 90.9 % (94.0-97.0); BG PCO2 41.1 mmHg (35.0-45.0); BG PH 7.391 (7.350-7.450); BG SAMPLE SITE RIGHT RADIAL; BG TOTAL HEMOGLOBIN 11.2 g/dL (12.0-18.0); BG TOTAL RESPIRATORY RATE 26 b/min; BG VENT MODE MASK - BIPAP
[2022-04-27 12:16] LABS: PLATELET ESTIMATE SLIGHTLY DECREASED
[2022-04-27] MEDS ORDERED: VANCOMYCIN 500 MG in DEXT 5% WATER 100 ML IV NR (14:00)
[2022-04-27] MEDS: PHENYLEPHRINE 100 MG in DEXT 5% WATER 240 ML IV PRN (14:44)
[2022-04-27] MEDS: NOREPINEPHRINE 32 MG in DEXT 5% WATER 218 ML IV PRN (16:37)
[2022-04-27] MEDS: DEXTROSE 50% WATER 50ML SYRINGE IV PRN ×2 (17:45→23:36)
[2022-04-28] VITALS (20 sets, daily range): BP systolic 52–130; BP diastolic 25–90
[2022-04-28] MEDS: IPRATROPIUM BROMIDE (0.02%) 0.5MG/2.5ML NEB HHN SCH (02:39)
[2022-04-28] MEDS: ACETYLCYSTEINE 100MG/ML 10% VIAL 4ML INH SCH (02:39)
[2022-04-28 05:52] LABS: HEMATOCRIT 30.7 % (36.0-48.0); HEMOGLOBIN 9.1 g/dL (12.0-16.0); MEAN CORPUSCULAR HEMOGLOBIN 22.7 pg (28.0-32.0); MEAN CORPUSCULAR VOLUME 76.6 fL (81.0-99.0); PLATELET 131 x1000/uL (130-400); RED BLOOD CELL COUNT 4.01 mill/uL (4.2-5.4)
[2022-04-28] MEDS ORDERED: SODIUM BICARBONATE 8.4% 1 MEQ/ML 50ML SYR IV ONE (09:33)
[2022-04-28] MEDS ORDERED: ATROPINE SULFATE 1MG/10ML SYR ONE (09:33)
[2022-04-28] MEDS ORDERED: DEXTROSE 50% WATER 50ML SYRINGE IV ONE (09:33)
[2022-04-28] MEDS ORDERED: EPINEPHRINE 0.1MG/ML (1:10,000) 10ML SYR ONE (09:33)
== END 2022-04-28 07:20 | DRG 871 ==
LOC: ER 18:23 → 8WST 21:11 → ENRESERV 22:06 → MICUNO 04-19 01:20 → MICUSO 04-24 18:08 → MICUNO 04-26 17:50
PROVIDERS: ADMIT Hospitalist; ATTEND Hospitalist
PROC: B54MZZA Ultrasonography of Right Upper Extremity Veins, Guidance (ICD-10-PCS; principal; 2022-04-19)
PROC: 05HY33Z Insertion of Infusion Device into Upper Vein, Percutaneous Approach (ICD-10-PCS; 2022-04-19)
PROC: 0BH17EZ Insertion of Endotracheal Airway into Trachea, Via Natural or Artificial Opening (ICD-10-PCS; 2022-04-19)
PROC: 5A1945Z Respiratory Ventilation, 24-96 Consecutive Hours (ICD-10-PCS; 2022-04-19)
PROC: 5A1D70Z Performance of Urinary Filtration, Intermittent, Less than 6 Hours Per Day (ICD-10-PCS; 2022-04-20)
PROC: 5A09457 Assistance with Respiratory Ventilation, 24-96 Consecutive Hours, Continuous Positive Airway Pressure (ICD-10-PCS; 2022-04-22)
PROC: 5A1D70Z Performance of Urinary Filtration, Intermittent, Less than 6 Hours Per Day (ICD-10-PCS; 2022-04-22)
PROC: 5A09357 Assistance with Respiratory Ventilation, Less than 24 Consecutive Hours, Continuous Positive Airway Pressure (ICD-10-PCS; 2022-04-23)
PROC: 5A09357 Assistance with Respiratory Ventilation, Less than 24 Consecutive Hours, Continuous Positive Airway Pressure (ICD-10-PCS; 2022-04-24)
PROC: 5A1D70Z Performance of Urinary Filtration, Intermittent, Less than 6 Hours Per Day (ICD-10-PCS; 2022-04-24)
PROC: 5A09357 Assistance with Respiratory Ventilation, Less than 24 Consecutive Hours, Continuous Positive Airway Pressure (ICD-10-PCS; 2022-04-25)
PROC: 0W993ZZ Drainage of Right Pleural Cavity, Percutaneous Approach (ICD-10-PCS; 2022-04-26)
PROC: 5A09357 Assistance with Respiratory Ventilation, Less than 24 Consecutive Hours, Continuous Positive Airway Pressure (ICD-10-PCS; 2022-04-26)
PROC: 5A1D70Z Performance of Urinary Filtration, Intermittent, Less than 6 Hours Per Day (ICD-10-PCS; 2022-04-26)
PROC: 5A12012 Performance of Cardiac Output, Single, Manual (ICD-10-PCS; 2022-04-28)
DX: A41.02 Sepsis due to Methicillin resistant Staphylococcus aureus (principal); E43 Unspecified severe protein-calorie malnutrition; J18.9 Pneumonia, unspecified organism; J96.01 Acute respiratory failure with hypoxia; N18.6 End stage renal disease; G93.41 Metabolic encephalopathy; I50.43 Acute on chronic combined systolic (congestive) and diastolic (congestive) heart failure; I82.B12 Acute embolism and thrombosis of left subclavian vein; I13.2 Hypertensive heart and chronic kidney disease with heart failure and with stage 5 chronic kidney disease, or end stage renal disease; I47.1 Supraventricular tachycardia; I48.92 Unspecified atrial flutter; E11.22 Type 2 diabetes mellitus with diabetic chronic kidney disease; E11.51 Type 2 diabetes mellitus with diabetic peripheral angiopathy without gangrene; F02.80 Dementia in other diseases classified elsewhere, unspecified severity, without behavioral disturbance, psychotic disturbance, mood disturbance, and anxiety; D63.1 Anemia in chronic kidney disease; E78.5 Hyperlipidemia, unspecified; E78.00 Pure hypercholesterolemia, unspecified; E87.6 Hypokalemia; E88.09 Other disorders of plasma-protein metabolism, not elsewhere classified; G30.9 Alzheimer's disease, unspecified; I25.10 Atherosclerotic heart disease of native coronary artery without angina pectoris; I25.2 Old myocardial infarction; I46.9 Cardiac arrest, cause unspecified; I48.91 Unspecified atrial fibrillation; I49.3 Ventricular premature depolarization; M19.90 Unspecified osteoarthritis, unspecified site; R65.20 Severe sepsis without septic shock; S60.943A Unspecified superficial injury of left middle finger, initial encounter; S60.945A Unspecified superficial injury of left ring finger, initial encounter; D69.6 Thrombocytopenia, unspecified; I08.1 Rheumatic disorders of both mitral and tricuspid valves; X58.XXXA Exposure to other specified factors, initial encounter; L89.156 Pressure-induced deep tissue damage of sacral region; Z20.822 Contact with and (suspected) exposure to COVID-19; Z79.4 Long term (current) use of insulin; Z79.899 Other long term (current) drug therapy; Z86.718 Personal history of other venous thrombosis and embolism; Z89.511 Acquired absence of right leg below knee; Z89.512 Acquired absence of left leg below knee; Z89.611 Acquired absence of right leg above knee; Z89.612 Acquired absence of left leg above knee; Z99.2 Dependence on renal dialysis; Z91.041 Radiographic dye allergy status; Z78.1 Physical restraint status; Y93.9 Activity, unspecified; Y92.89 Other specified places as the place of occurrence of the external cause; Y99.8 Other external cause status
CPT/HCPCS: 32555; 36415; 36573; 36600; 71045; 71250; 80048; 80053; 80202; 80307; 80329; 82040; 82140; 82375; 82805; 82962; 83605; 83615; 83735; 83970; 84100; 84134; 84145; 84443; 84478; 84484; 85025; 85027; 86705; 86709; 86803; 87070; 87077; 87186; 87340; 87426; 88108; 92950; 93005; 93306; 94003; 94640; 94660; 94667; 97162; 99291; C1725; C9113; J0282; J0330; J0461; J1170; J1815; J2370; J2543; J2704; J2930; J3370; J3490; J7060; J7608